=== PATIENT | male | born 1945 | race Asian ===

== ENCOUNTER → 2024-03-12 16:12 | Outpatient (REF) | payer MEDICARE, OTHER, SELFPAY | LOC: RAD 16:12 | PROVIDERS: ATTENDING PHYSICIAN Family Medicine | DX: R74.8 Abnormal levels of other serum enzymes (principal) | CPT/HCPCS: 76700 ==

== ENCOUNTER → 2024-06-08 16:31 | Outpatient (REF) | payer MEDICARE, OTHER, SELFPAY | LOC: RAD 16:31 | PROVIDERS: ATTENDING PHYSICIAN Family Medicine | DX: R26.89 Other abnormalities of gait and mobility (principal) | CPT/HCPCS: 70450 ==

== ENCOUNTER 2024-06-29 14:16 | Emergency (ER) | payer MEDICARE, OTHER, SELFPAY ==
[2024-06-29 14:21] VITALS: BP 113/62
--- NOTE | 2024-06-29 15:05 | ED.GENMED ---
History of Present Illness
General
Chief Complaint: Head Injury
Time Seen by Provider: 06/29/24 15:05
History of Present Illness
History of Present Illness:
HPI: Patient had a fall this morning. He states that he lost his balance. He has fallen in the past related to losing his balance. He struck his head on the right side and has a headache. He also has some posterior neck discomfort. He has
chronic back pain but not necessarily worse today. There is no report of loss of consciousness however the patient is on DAPT.
EXAM:
GENERAL: Well appearing in no distress
CERVICAL SPINE: Mild midline c-spine tenderness
HEAD: No evidence of craniofacial trauma
CHEST: No chest wall tenderness, normal heart sounds
LUNGS: Equal lung sounds, no respiratory distress
ABDOMEN: No abdominal tenderness, no peritoneal signs
EXTREMITIES: Normal active range of motion, no tenderness, minimal discomfort to the medial aspect of the left thigh with active range of motion but no significant hip or knee discomfort
NEURO: Excellent strength all extremities, appropriate mental status, normal speech/language
TIME OF INITIAL ENCOUNTER: 3:15 PM
NUMBER AND COMPLEXITY OF PROBLEMS ADDRESSED AT THE ENCOUNTER
� Chronic conditions affecting care: CHF, high blood pressure, hyperlipidemia, CAD, pacemaker, CKD, diabetes, iron deficiency anemia
� Acute Exacerbation and/or Progression of Chronic Illness: This is an acute problem
� Differential Diagnosis includes: Minor head injury, concussion, intracranial hemorrhage
AMOUNT AND/OR COMPLEXITY OF DATA TO BE REVIEWED AND ANALYZED
� I performed an independent evaluation of and my interpretation is:
EKG:
CT: CT imaging personally reviewed and agree with radiologist interpretation that there is no acute abnormality
X-rays:
Laboratory Studies:
Other:
� Review of other/old records: I reviewed records, the patient has been rehab related to heart failure as of last year
� Clinical information was obtained by an independent historian: Spoke to son at bedside who also assisted with translation without difficulty
� Prescriptions/Medications Considered but not given:
� Further testing considered but not performed:
RISK OF COMPLICATIONS AND/OR MORBIDITY OR MORTALITY OF PATIENT MANAGEMENT
� Social determinants of health affecting care: Lives at home
� Discussion with other providers:
� Escalation of care including admission/observation vs risk of discharge considered: Given patient's age on DAPT with headache after fall, CT head obtained. Vital signs unremarkable. CT imaging unremarkable. No change on
reassessment prior to discharge.
Past History
Past History
ED Past Medical History: CAD, HTN, Hypercholesterolemia and NIDDM
ED Past Surgical History: Cardiac (CABG)
Social History
Tobacco: Former smoker
Personal:
Family History
Family History: CAD
Phy Exam
Physical Exam
Physical Exam:
See HPI
Course
Orders/Labs/Results
Orders:
Orders
06/29/24 14:31
CT Head W/o Iv Contrast Urgent
Comment:
Reason For Exam: head injury, on Plavix
06/29/24 15:18
CT Cervical Spine W/o Iv Contr Urgent
Comment:
Reason For Exam: trauma midline tender
Vital Signs
Initial and Last Documented VS:
Initial Vital Signs
Temp Pulse Resp BP Pulse Ox
98.0 F 86 18 113/62 100
06/29/24 14:21 06/29/24 14:21 06/29/24 14:21 06/29/24 14:21 06/29/24 14:21
Last Documented Vital Signs
Temp Pulse Resp BP Pulse Ox
98.0 F 86 18 113/62 100
06/29/24 14:21 06/29/24 14:21 06/29/24 14:21 06/29/24 14:21 06/29/24 14:21
*Critical Care Note
Total Time (30-74mins, 75-104mins- exclusive of procedures): Not Applicable
ED Attending Note
-
Portions of this chart may have been created with voice recognition software.� Occasional wrong word or��sound alike� substitutions may have occurred due to the inherent limitations of voice recognition software.
Discharge Plan
Departure
Prescriptions:
No Action
rosuvastatin 20 MG tablet
40 mg PO 2100
aspirin 325 MG tablet
325 mg PO 1600 Qty: 0 0RF
ferrous sulfate [FeroSul] 325 MG tablet
325 mg PO BID@1200,2100 Qty: 0 0RF
folic acid 1 MG tablet
1 mg PO DAILY Qty: 0 0RF
ranolazine 500 MG tablet extended release 12 hr
1,000 mg PO BID Qty: 0 0RF
fenofibrate nanocrystallized 145 MG tablet
145 mg PO DAILY Qty: 0 0RF
nitroglycerin [Minitran] 1 EACH patch 24 hour
0.4 mg topical DAILY
Patient Comments:
take off at night
glipizide 10 MG tablet
10 mg PO BID
esomeprazole magnesium [Nexium] 40 MG capsule,delayed release(DR/EC)
40 mg PO 0800,1600
oxybutynin chloride 5 MG tablet
5 mg PO BID
eymkzzhj-kqq-WK-lycopen-lutein [Centrum Silver] 1 EACH tablet
1 ea PO 1600
canagliflozin [Invokana] 100 MG tablet
100 mg PO DAILY
cholecalciferol (vitamin D3) 5,000 UNIT tablet,disintegrating
5,000 unit PO DAILY
carvedilol 6.25 MG tablet
18.75 mg PO BID
valsartan 80 MG tablet
80 mg PO DAILY
clopidogrel 75 MG tablet
75 mg PO NOON
famotidine 20 MG tablet
20 mg PO BID
furosemide 20 MG tablet
20 mg PO DAILYPRN PRN (Reason: as needed)
Referrals:
Elizabeth Torres DO [Family Provider] -
Interventions
Interventions:
*General Assessment Last Done: 06/29/24 14:28
ED- Fall Risk Assessment Last Done: 06/29/24 14:50
*ED COVID-19 Vaccine History Last Done: 06/29/24 14:28
ED- Neurological Assessment Last Done: 06/29/24 15:19
Discharge Date and Time
Print Language: ARABIC
[2024-06-29 17:35] VITALS: BP 106/63
== END 2024-06-29 17:36 | disposition home or self-care (01) ==
LOC: EMR 14:16
PROVIDERS: EMERGENCY PHYSICIAN Emergency Medicine; FAMILY PHYSICIAN Family Medicine
DX: S09.90XA Unspecified injury of head, initial encounter (principal); W19.XXXA Unspecified fall, initial encounter; I13.0 Hypertensive heart and chronic kidney disease with heart failure and stage 1 through stage 4 chronic kidney disease, or unspecified chronic kidney disease; N18.9 Chronic kidney disease, unspecified; E78.00 Pure hypercholesterolemia, unspecified; I25.10 Atherosclerotic heart disease of native coronary artery without angina pectoris; Z87.891 Personal history of nicotine dependence; Z95.0 Presence of cardiac pacemaker
CPT/HCPCS: 99284; 70450; 72125

== ENCOUNTER 2024-11-05 15:21 | Emergency (ER) | payer MEDICARE, OTHER, SELFPAY ==
[2024-11-05 15:35] VITALS: BP 113/50
[2024-11-05 16:12] LABS: Hematocrit 32.7 % (39.0-52.0); Hemoglobin 10.4 g/dL (13.0-18.0); Mean Corp Hgb Conc. 31.8 g/dL (33.0-37.0); Mean Corpuscular Hgb 27.1 pg (27.0-31.0); Mean Corpuscular Volume 85.2 fL (80.0-94.0); Platelet Count 91 10^3/uL (130-400); Red Blood Cell Count 3.84 10^6/uL (4.70-6.10); Red Cell Dist. Width 16.1 % (11.5-14.5); White Blood Cell Count 11.2 10^3/uL (4.8-10.8)
[2024-11-05 16:14] LABS: ALT (SGPT) 73 U/L (0-50); AST (SGOT) 86 U/L (17-59); Albumin 4.6 g/dl (3.5-5.0); Alkaline Phosphatase 81 U/L (38-126); Blood Urea Nitrogen 32 mg/dl (9-20); Calcium 8.9 mg/dl (8.4-10.2); Carbon Dioxide 28 mmol/L (22-30); Chloride 94 mmol/L (98-107); Glucose 308 mg/dl (70-99); Potassium 4.9 mmol/L (3.5-5.1); Sodium 134 mmol/L (135-145); Total Bilirubin 1.5 mg/dl (0.2-1.3)
[2024-11-05 16:21] LABS: NT-proBNP 3010 pg/ml; Troponin I 0.017 ng/ml
[2024-11-05 16:23] LABS: Total Protein 6.5 g/dl (6.3-8.2)
[2024-11-05 16:38] LABS: % Basophils 0.2 % (0-2); % Eosinophils 0.1 % (0-6); % Immature Granulocytes 0.9 % (0-0.5); % Monocytes 10.1 % (1.7-9.3); % Neutrophils 81.7 % (42.2-75.2); Absolute Immature Granulocytes 0.1 10^3/uL (0-0.05); Absolute Lymphocytes 0.8 10^3/uL (1.2-3.4); Absolute Monocytes 1.1 10^3/uL (0.1-0.6); Absolute Neutrophils 9.2 10^3/uL (1.4-6.5); Nucleated Red Blood Cells % 0 % (-)
[2024-11-05 20:40] VITALS: BMI 30.3
[2024-11-05 20:42] VITALS: BP 109/70
--- NOTE | 2024-11-05 21:04 | ED.GENMED ---
History of Present Illness
General
Chief Complaint: Breathing Problem
Source: patient and family
Exam Limitations: none
Time Seen by Provider: 11/05/24 20:55
History of Present Illness
History of Present Illness:
See MDM
Past History
Past History
ED Past Medical History: CAD, HTN, Hypercholesterolemia and NIDDM
ED Past Surgical History: Cardiac (CABG)
Social History
Tobacco: Former smoker
Personal:
Family History
Family History: CAD
Phy Exam
Physical Exam
Physical Exam:
See MDM
Scores
Heart Failure Risk
Heart Failure Risk Score: Yes
History of Stroke or TIA: No
History of intubation for respiratory distress: No
Heart rate on ED arrival >/= 110: No
SaO2 <90% on arrival on room air: No
HR >/=110 during 3min walk test (or too ill to perform test): No
ECG has acute ischemic changes: No
Urea >/=12mmol/L (BUN 33.6mg/dL): No
Serum CO2>/=35mmol/L: No
Troponin I or T elevated to CT Level (0.4mg/dL): No
NT-proBNP >/=5,000ng/L (5,000pg/ml): No
HF Risk Score: 0
Admission Status: LOW RISK 2.8% Consider discharge to home with f/u visit to PCP/Creative Engagement Director
Course
Orders/Labs/Results
Orders:
Orders
11/05/24 15:22
Electrocardiogram (*1) Urgent
Reason for Study: Shortness of Breath
EKG- Treatment ONCE
11/05/24 15:50
Complete Blood Count/With Diff Urgent
Comprehensive Metabolic Panel Urgent
NT-proBNP Urgent
Troponin I Urgent
11/05/24 21:03
CR Chest - 2 Views Urgent
Comment:
Reason For Exam: SOB, cough
11/05/24 21:24
COVID-19 Antigen Urgent
Source: Nasal Swab
Influenza A+B Rapid Molecular Urgent
FEMI Source: Nasal Swab
Specimen Description:
11/05/24 22:03
Guaifenesin/Codeine Solution [Robitussin AC] 10 ml PO NOW STA
Oseltamivir Phosphate [Tamiflu] 75 mg PO NOW STA
Abnormal Lab Results
11/05/24
15:50
WBC 11.2 H 10^3/uL
(4.8-10.8)
RBC 3.84 L 10^6/uL
(4.70-6.10)
Hgb 10.4 L g/dL
(13.0-18.0)
Hct 32.7 L %
(39.0-52.0)
MCHC 31.8 L g/dL
(33.0-37.0)
RDW 16.1 H %
(11.5-14.5)
Plt Count 91 L 10^3/uL
(130-400)
MPV 12.0 H fL
(7.4-10.4)
Abs Immat Gran (auto) 0.1 H 10^3/uL
(0-0.05)
Absolute Neuts (auto) 9.2 H 10^3/uL
(1.4-6.5)
Absolute Lymphs (auto) 0.8 L 10^3/uL
(1.2-3.4)
Absolute Monos (auto) 1.1 H 10^3/uL
(0.1-0.6)
Immature Gran % 0.9 H %
(0-0.5)
Neutrophils % 81.7 H %
(42.2-75.2)
Lymphocytes % 7.0 L %
(20.5-51.1)
Monocytes % 10.1 H %
(1.7-9.3)
Sodium 134 L mmol/L
(135-145)
Chloride 94 L mmol/L
(98-107)
BUN 32 H mg/dl
(9-20)
Creatinine 1.6 H mg/dL
(0.7-1.3)
Glucose 308 H mg/dl
(70-99)
Total Bilirubin 1.5 H mg/dl
(0.2-1.3)
AST 86 H U/L
(17-59)
ALT 73 H U/L
(0-50)
11/05/24 15:50
11/05/24 15:50
Vital Signs
Initial and Last Documented VS:
Initial Vital Signs
Temp Pulse Resp BP Pulse Ox
98.3 F 77 20 113/50 99
11/05/24 15:35 11/05/24 15:35 11/05/24 15:35 11/05/24 15:35 11/05/24 15:35
Last Documented Vital Signs
Temp Pulse Resp BP Pulse Ox
98.3 F 73 25 109/70 99
11/05/24 15:35 11/05/24 21:45 11/05/24 21:45 11/05/24 20:42 11/05/24 21:15
MDM/Problems Addressed
Differential Diagnosis Includes:
HPI and MDM Narrative:
79-year-old male presenting with for persistent cough over the past several weeks. Over the past 24 hours, it is now associated with shortness of breath. Patient does have a history of congestive heart failure and symptoms are worse when he lays
flat. As he has done in the past, he took an extra dose of Lasix. His current regimen is 40 mg a.m. and 20 mg p.m. Last night, took an extra 20 mg at night. He took his normal 40 mg this morning.
Blood work was done prior to my evaluation. Troponin within normal limits but BNP is elevated. Patient was complaining of worsening shortness of breath in the bed so he brought himself to the chair. This has helped. Patient does have shallow
breath sounds.
Patient has chronic lab abnormalities which include CKD, anemia and hyperglycemia all of which are not too far from baseline.
Will obtain chest x-ray
Physical exam
General: Sitting in bed with intermittent dry cough
HEENT: protecting airway
Neck: appears supple
CV: No evidence of cyanosis. Regular rate and rhythm
Resp: No accessory muscle use. Shallow breath sounds
Abd: Non-distended
Extremities: No deformities. No leg edema
Neuro: alert
Psych: Normal affect
Skin: Intact
Problems Addressed including Acute and Chronic Conditions affecting care:
1. Shortness of breath and cough
Acuity: acute
Prognosis: stable
Details: Given his history, will obtain chest x-ray to look for any evidence of pulmonary edema
Updates
Chest x-ray shows mild increase in cephalization. There is no pleural effusions. Given the elevated BNP, I discussed with patient and family that this could potentially mean mild CHF. Patient also found to have influenza. He did not get his flu
shot this year. Will start Tamiflu at 30 mg twice a day based on renal function. I did offer admission but patient and son feel comfortable going home
Son is requesting paper prescription even after I told him that narcotics usually require electronic transmission
Differential Diagnosis (but not limited to): Pulmonary edema, pneumonia, viral syndrome
Testing considered: D-dimer but he is neither tachycardic nor hypoxic
Drug therapy (if applicable): OTC meds, please see d/c instruction regarding Rx drugs
Amount and/or Complexity of Data Reviewed
Clinical info obtained from: Patient and son
External data reviewed: N/A
Labs I independently reviewed (but not limited to): CKD, anemia, hyperglycemia
Radiology: N/A
Pulse Ox: not hypoxic
EKG independently reviewed: Paced rhythm, left axis, no STEMI
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
Critical Care: N/A
Risk of Complication:
Social Determinants of health: Good social support
Discussed with other providers: N/A
Escalation of Care includes Admit/Obs: After being observed in the Emergency Department, pt stable for discharge.
Occasional wrong word or 'sound a like' substitutions may have occurred due to the inherent limitations of voice recognition software. Read the chart carefully and recognize, using context, where substitutions have occurred.
*Critical Care Note
Total Time (30-74mins, 75-104mins- exclusive of procedures): Not Applicable
ED Attending Note
-
Portions of this chart may have been created with voice recognition software.� Occasional wrong word or��sound alike� substitutions may have occurred due to the inherent limitations of voice recognition software.
Discharge Plan
Departure
Patient Disposition: Home (Routine Discharge)
Date of Disposition: 11/05/24
Time of Disposition: 22:09
Patient with high blood pressure during this ER visit?: No
Discharge Problem:
Influenza A, CHF exacerbation
Instructions: Flu
Prescriptions:
New
codeine-guaifenesin 10-100 mg/5 mL liquid
5 ml PO Q6H PRN (Reason: Cough) Qty: 120 0RF
oseltamivir [Tamiflu] 30 mg capsule
30 mg PO BID 5 Days Qty: 10 0RF
No Action
rosuvastatin 20 MG tablet
40 mg PO 2100
aspirin 325 MG tablet
325 mg PO 1600 Qty: 0 0RF
ferrous sulfate [FeroSul] 325 MG tablet
325 mg PO BID@1200,2100 Qty: 0 0RF
folic acid 1 MG tablet
1 mg PO DAILY Qty: 0 0RF
ranolazine 500 MG tablet extended release 12 hr
1,000 mg PO BID Qty: 0 0RF
fenofibrate nanocrystallized 145 MG tablet
145 mg PO DAILY Qty: 0 0RF
nitroglycerin [Minitran] 1 EACH patch 24 hour
0.4 mg topical DAILY
Patient Comments:
take off at night
glipizide 10 MG tablet
10 mg PO BID
esomeprazole magnesium [Nexium] 40 MG capsule,delayed release(DR/EC)
40 mg PO 0800,1600
oxybutynin chloride 5 MG tablet
5 mg PO BID
ggvwmwmo-vft-OR-lycopen-lutein [Centrum Silver] 1 EACH tablet
1 ea PO 1600
canagliflozin [Invokana] 100 MG tablet
100 mg PO DAILY
cholecalciferol (vitamin D3) 5,000 UNIT tablet,disintegrating
5,000 unit PO DAILY
carvedilol 6.25 MG tablet
18.75 mg PO BID
valsartan 80 MG tablet
80 mg PO DAILY
clopidogrel 75 MG tablet
75 mg PO NOON
famotidine 20 MG tablet
20 mg PO BID
furosemide 20 MG tablet
20 mg PO DAILYPRN PRN (Reason: as needed)
Referrals:
UNKNOWN - PT DOES,NOT KNOW [Family Provider] -
Activity Restrictions/Additional Instructions:
Please return for any worsening symptoms.
You may return at any time if you have further concerns.
Please follow up with your doctor at the first available appointment, preferably this week.
Please take the Tamiflu for the influenza. The chest x-ray was concerning for very mild CHF exacerbation. Continue 40 mg of Lasix twice a day for the next 3 days.
Thank you for choosing [facility].
Interventions
Interventions:
*Risk Screen - Suicide Last Done: 11/05/24 15:35
*General Assessment Last Done: 11/05/24 15:35
*Neglect/Abuse Screening Last Done: 11/05/24 15:35
ED- Fall Risk Assessment Last Done: 11/05/24 20:50
*ED COVID-19 Vaccine History Last Done: 11/05/24 20:47
ED- Cardiac Assessment Last Done: 11/05/24 20:49
ED- Pulmonary Assessment Last Done: 11/05/24 20:49
Discharge Date and Time
Print Language: CROATIAN
[2024-11-05 21:47] LABS: COVID-19 Antigen Negative (Negative)
[2024-11-05] MEDS: TAMIFLU 30 MG PO (22:20)
[2024-11-05] MEDS: ROBITUSSIN AC 10 ML PO (22:20)
== END 2024-11-05 22:29 | disposition home or self-care (01) ==
LOC: EMR 15:21
PROVIDERS: Emergency Medicine; EMERGENCY PHYSICIAN Student in an Organized Health Care Education/Training Program
DX: J10.1 Influenza due to other identified influenza virus with other respiratory manifestations (principal); Z87.891 Personal history of nicotine dependence; Z11.52 Encounter for screening for COVID-19
CPT/HCPCS: 99285; 71046; 80053; 83880; 84484; 85025; 87502; 87811; 93005

== ENCOUNTER 2024-11-07 08:12 | Inpatient (IN) | payer MEDICARE, OTHER, SELFPAY ==
[2024-11-07] VITALS (93 sets, daily range): BP systolic 70–162; BP diastolic 26–89
[2024-11-07 05:49] LABS: Glucose - Point of Care 337 mg/dl (70-99)
[2024-11-07 05:55] LABS: Hematocrit 32.2 % (39.0-52.0); Hemoglobin 10.1 g/dL (13.0-18.0); Mean Corp Hgb Conc. 31.4 g/dL (33.0-37.0); Mean Corpuscular Hgb 27.4 pg (27.0-31.0); Mean Corpuscular Volume 87.5 fL (80.0-94.0); Mean Platelet Volume 13.6 fL (7.4-10.4); Platelet Count 82 10^3/uL (130-400); Red Blood Cell Count 3.68 10^6/uL (4.70-6.10); White Blood Cell Count 12.1 10^3/uL (4.8-10.8)
[2024-11-07 06:17] LABS: B.E. -16.3 mmol/L; PCO2 63 mmHg (35-48)
[2024-11-07 06:19] LABS: ALT (SGPT) 48 U/L (0-50); AST (SGOT) 62 U/L (17-59); Albumin 3.5 g/dl (3.5-5.0); Alkaline Phosphatase 64 U/L (38-126); Blood Urea Nitrogen 46 mg/dl (9-20); Calcium 7.5 mg/dl (8.4-10.2); Carbon Dioxide 17 mmol/L (22-30); Chloride 96 mmol/L (98-107); Glucose 372 mg/dl (70-99); Potassium 4.7 mmol/L (3.5-5.1); Sodium 132 mmol/L (135-145); Total Bilirubin 0.9 mg/dl (0.2-1.3); Total Protein 5.6 g/dl (6.3-8.2); eGFR 41.01
[2024-11-07 06:20] LABS: Troponin I 0.051 ng/ml
[2024-11-07 06:21] LABS: O2 Therapy 100%; pH 6.97 (7.35-7.45)
[2024-11-07 06:22] LABS: HCO3 14.5 mmol/L (21-28); PO2 32 mmHg (83-108)
--- NOTE | 2024-11-07 06:32 | PTCARENOTE ---
pt arrived via EMS after SOB, dx with flu on friday and seen in ED a few days ago. upon EMS arrival, pt was conversant and responsive. EMS administered duoneb- satting 90%. pt had no c/o CP. during transport pt became unresponsive- PEA and CPR
initiated. 1 round of vfib and 4 epi given prior to arrival. pt given 1 mL of epi at 0536, BS 337, got pulse back at 0538. pt intubated at 0546, levophed gtt started at 4mcg at 0552. 0.5 mL of epi given at 0554 and levo increased to 8mcg at 0554. pt
then increased to 12 mcg of levo at 0609 then 16 mcg at 0611 and 20 mcg at 0615. another 0.5 mL of epi given 0618. epi gtt initiated at 1mcg/min at 0619. pts son at bedside.
--- NOTE | 2024-11-07 06:59 | ED.GENMED ---
History of Present Illness
General
Chief Complaint: CODE
Source: family (Son at bedside), ambulance crew and previous hospital records (ED visit November 05.)
Exam Limitations: clinical condition
Time Seen by Provider: 11/07/24 05:33
Nursing documentation reviewed up to this point in time: agreed with
History of Present Illness
History of Present Illness:
This is a 79-year-old gentleman who resides at home with his son. He has history of CAD, cardiomyopathy. Prior history of 3 previous CABG procedures most recently 2019, multiple cardiac catheterizations with stent procedures, most recently
years ago. History of cardiomyopathy with EF of 30 to 35% as per most recent echocardiogram 1 week ago. He has history of chronic kidney disease stage III. History of oei-ckswdcs-rqiohmryu diabetes.
History of atrial fibrillation chronically maintained on Plavix and aspirin.
He presented to this ED November 05 with complaints of several week history of cough, progressive shortness of breath.
He was found to be positive for influenza A. Chest x-ray showed mild CHF. He was started on Tamiflu/renal dose. Was offered admission but both he and his son felt comfortable to go home.
Over the past 2 days however he has continued to have a cough and progressive shortness of breath, severe tonight prompting call to 911.
Upon EMS arrival patient in severe respiratory distress, severe air hunger, nebulizer treatment initiated and patient was packaged and placed in the ambulance. Initial pulse ox during nebulizer treatment was 92%.
En route to the hospital he suffered cardiac arrest with initial rhythm of asystole. CPR initiated promptly and continued during EMS transport. Advanced airway/Latrell Combitube inserted prehospital. Left tibial IO inserted prehospital and he
received several rounds of IV epinephrine without return of spontaneous circulation. Child Care Cook notes rhythm changed to ventricular fibrillation upon arrival to the ED.
Patient arrives to the ED in cardiac arrest. CPR continued. Bag valve to Combitube with 100% oxygen.
Past History
Past History
ED Past Medical History: CAD, HTN, Hypercholesterolemia and NIDDM
ED Past Surgical History: Cardiac (CABG)
Social History
Tobacco: Former smoker
Personal:
Family History
Family History: CAD
Phy Exam
Physical Exam
Physical Exam:
CODE EXAM:
VITAL SIGNS: No palpable blood pressure, no pulses, no respiration.
GENERAL EXAM: Elderly obese gentleman, unresponsive. CPR in progress. No evidence of trauma.
EYES: Pupils fixed
ENT: Oral Combitube, bagged respirations.
NECK: No venous distention
RESPIRATORY: Equal breath sounds with fine rhonchi bilaterally.
CARDIAC: Absent heart sounds
VASCULAR: Femoral pulses palpable with CPR. Absent during brief pulse check.
ABDOMEN: Rotund, soft, no palpable masses.
GUAIAC: Not done
MUSCULOSKELETAL: Unable to evaluate strength
EXTREMITIES: No edema or contractures. Hands and feet are cool, central extremities are warm.
SKIN: No rash
PSYCH: Mood, affect unable to evaluate
Course
Orders/Labs/Results
Orders:
Orders
11/07/24 05:39
EKG [Electrocardiogram (*1)] Urgent
Reason for Study: Other
Other Reason for Exam: code
EPINEPHrine 4 mg/250 mL NSS [Adrenalin] 4 mg in 250 ml .ROUTE .STK-MED
11/07/24 05:40
EKG- Treatment ONCE
11/07/24 05:45
Complete Blood Count/With Diff Urgent
Comprehensive Metabolic Panel Urgent
Manual Differential Urgent
Troponin I Urgent
11/07/24 05:48
Lactic Acid Urgent
CXR Port [CR Chest Portable - 1 View] Urgent
Comment:
Reason For Exam: code- intubated
Reason Study Needs to be Portable: Patient Unstable
11/07/24 05:50
NORepinephrine 4 MG/250 ML [Levophed] 4 mg in 250 ml .ROUTE .STK-MED
11/07/24 05:56
EKG [Electrocardiogram (*1)] Urgent
Reason for Study: Other
Other Reason for Exam: code
EKG- Treatment ONCE
11/07/24 06:08
Blood Culture Urgent
FEMI Source: Blood/Venous
Specimen Description:
11/07/24 06:09
ABG [Arterial Blood Gas] Urgent
%Oxygen/Room Air: 100
11/07/24 06:11
Blood Culture Urgent
FEMI Source: Blood/Venous
Specimen Description:
11/07/24 07:05
CXR Port [CR Chest Portable - 1 View] Stat
Comment:
Reason For Exam: ET tube adjustment
Reason Study Needs to be Portable: Unable to Transport
11/07/24 07:19
CT Head W/o Iv Contrast Stat
Comment:
Reason For Exam: s/p cardiac arrest, unresponsive, eval cerebredema
11/07/24 07:23
Admit/Transfer Patient As Directed
Co-Sign Provider:
Level of Care: Inpatient admission
Assign to:: ICU
Physician / Group: hospitalist
Diagnosis: cardiac arrest
Reason for Hospitalization: cardiac arrest
Expected length of stay greater than two midnights?: Yes
ELOS- Estimated Length of Stay in days: 2
I certify the patient meets the requirements for IP care: Yes
PRN Pain Medication Management As Directed
May give lesser potent ordered pain med per pt: Yes
preference::
Protocol:: Medication orders for pain may be administered in a
manner that supports deferring to patient preference
when the pt is:
- Requesting an ordered lesser potent pain medication.
Least to most potent pain medications are defined
as: acetaminophen < NSAID < tramadol < opioids
(morphine, oxycodone, hydromorphone).
- Requesting a lesser dose of the same medication IF
ORDERED.
- Requesting a less intrusive route of administration
if both routes are prescribed by the provider (PO <
IV).
11/07/24 07:45
Venous Blood Gas Stat
%Oxygen/Room Air: 100
11/07/24 07:56
Code Status As Directed
Resuscitation Status: Full Code
Abnormal Lab Results
11/07/24 11/07/24 11/07/24
05:38 05:45 05:48
WBC 12.1 H 10^3/uL
(4.8-10.8)
RBC 3.68 L 10^6/uL
(4.70-6.10)
Hgb 10.1 L g/dL
(13.0-18.0)
Hct 32.2 L %
(39.0-52.0)
MCHC 31.4 L g/dL
(33.0-37.0)
RDW 16.0 H %
(11.5-14.5)
Plt Count 82 L 10^3/uL
(130-400)
MPV 13.6 H fL
(7.4-10.4)
pH
pCO2
pO2
HCO3
ABG O2 Sat (Measured)
Sodium 132 L mmol/L
(135-145)
Chloride 96 L mmol/L
(98-107)
Carbon Dioxide 17 L mmol/L
(22-30)
BUN 46 H mg/dl
(9-20)
Creatinine 1.7 H mg/dL
(0.7-1.3)
Glucose 372 H mg/dl
(70-99)
Lactic Acid 7.0 H* mmol/L
(0.7-2.0)
Calcium 7.5 L mg/dl
(8.4-10.2)
AST 62 H U/L
(17-59)
Troponin I 0.051 H* ng/ml
Total Protein 5.6 L g/dl
(6.3-8.2)
POC Glucose 337 H mg/dl
(70-99)
11/07/24
06:09
WBC
RBC
Hgb
Hct
MCHC
RDW
Plt Count
MPV
pH 6.97 L*
(7.35-7.45)
pCO2 63 H mmHg
(35-48)
pO2 32 L* mmHg
(83-108)
HCO3 14.5 L* mmol/L
(21-28)
ABG O2 Sat (Measured) 40.0 L %
(94-98)
Sodium
Chloride
Carbon Dioxide
BUN
Creatinine
Glucose
Lactic Acid
Calcium
AST
Troponin I
Total Protein
POC Glucose
11/07/24 05:45
11/07/24 05:45
Vital Signs
Initial and Last Documented VS:
Initial Vital Signs
Pulse Resp BP
71 20 102/61
11/07/24 06:04 11/07/24 06:04 11/07/24 06:04
Last Documented Vital Signs
Pulse Resp BP Pulse Ox
89 18 120/49 98
11/07/24 07:02 11/07/24 07:02 11/07/24 07:02 11/07/24 07:00
MDM/Problems Addressed
Differential Diagnosis Includes:
Concern for acute hypoxic respiratory failure, progressive to cardiopulmonary arrest.
Patient has known influenza, concern for fulminant viral pneumonia versus bacterial pneumonia, concern for pulmonary edema, concern for coronary ischemia related to hypoxia.
Concern for overwhelming sepsis, acute on chronic kidney disease.
Concern for anoxic encephalopathy.
Chronic conditions affecting care: DM, HTN, CAD, Cardiomyopathy, Arrhythmia and Kidney disease
*Radiology
Radiology exam reviewed: preliminary read by ED provider
*Pulse Oximetry
Patient hypoxic: yes
*EKG
Interpreted by ED Provider?: Yes
Comparison EKG: no changes
Rhythm: av sequential
*Bottle Gauger Interpretation
Rate: normal
Rhythm: av sequential
*Critical Care Note
Total Time (30-74mins, 75-104mins- exclusive of procedures): 90
comment:
Critical care statement: A total of 90 minutes of critical care time was provided for this patient. This includes management of unstable vital signs, evaluation of the patient at bedside, reviewing the patient's pertinent medical records, discussion
with consultants, review of old EKGs and review of pertinent medical records. This time with separate from time utilized to perform the aforementioned documented procedures
Update Note
Update Note:
With continuation of CPR, airway management and an additional 1 mg of epinephrine promptly after arrival to the ED ROSC established.
Bounding carotid as well as femoral pulses.
EKG shows AV sequential pacing, overall similar to previous EKG. no evidence of STEMI.
Blood pressure has remained tenuous requiring initiation of IV Levophed as well as addition of IV epinephrine drip. He has also required occasional Push dose epinephrine which patient has responded quite well to.
Combitube removed by myself and replaced with 7.5 ET tube. Equal breath sounds bilaterally. End-tidal CO2 of 40. Placed on ventilator.
Initial ABG/blood draw appears to be venous draw. Significant acidosis which appears metabolic as well as respiratory.
Chest x-ray shows CHF and right lower lobe pneumonia. ET tube into the right mainstem bronchus. ET tube has since been withdrawn 2 cm and resecured.
IV Zosyn has been started for potential bacterial pneumonia.
Despite return of spontaneous respirations, adequate blood pressure patient remains unresponsive.
Son is now at bedside. Pt's condition discussed.
Full code
Case discussed with hospitalist.
As patient appears to have primary respiratory issue as cause for cardiac arrest, concern for sepsis, at this point does not appear to be criti-cool candidate.
Similarly, no evidence of STEMI on EKG and cardiac arrest appeared to be hypoxia in nature. At this point no indication for urgent cardiac catheterization.
Will consider CT head, assess for potential early signs of anoxic encephalopathy
He remains in critical condition
Prognosis is guarded
ED Attending Note
-
Portions of this chart may have been created with voice recognition software.� Occasional wrong word or��sound alike� substitutions may have occurred due to the inherent limitations of voice recognition software.
Discharge Plan
Departure
Patient Disposition: Admit
Date of Disposition: 11/07/24
Time of Disposition: 06:16
Admit to: ICU
Admit to doctor: KANDACE
Presentation/result/management discussed w/ accepting MD/DO: Hospitalist
Condition: Critical
Discharge Problem:
CARDIOPULMONARY ARREST WITH ROSC, Influenza A, Pneumonia and influenza, Pulmonary edema
Prescriptions:
No Action
rosuvastatin 20 MG tablet
40 mg PO 2100
aspirin 325 MG tablet
325 mg PO 1600 Qty: 0 0RF
ferrous sulfate [FeroSul] 325 MG tablet
325 mg PO BID@1200,2100 Qty: 0 0RF
folic acid 1 MG tablet
1 mg PO DAILY Qty: 0 0RF
ranolazine 500 MG tablet extended release 12 hr
1,000 mg PO BID Qty: 0 0RF
fenofibrate nanocrystallized 145 MG tablet
145 mg PO DAILY Qty: 0 0RF
nitroglycerin [Minitran] 1 EACH patch 24 hour
0.4 mg topical DAILY
Patient Comments:
take off at night
glipizide 10 MG tablet
10 mg PO BID
esomeprazole magnesium [Nexium] 40 MG capsule,delayed release(DR/EC)
40 mg PO 0800,1600
oxybutynin chloride 5 MG tablet
5 mg PO BID
npbcuzau-ppt-HQ-lycopen-lutein [Centrum Silver] 1 EACH tablet
1 ea PO 1600
canagliflozin [Invokana] 100 MG tablet
100 mg PO DAILY
cholecalciferol (vitamin D3) 5,000 UNIT tablet,disintegrating
5,000 unit PO DAILY
carvedilol 6.25 MG tablet
18.75 mg PO BID
valsartan 80 MG tablet
80 mg PO DAILY
clopidogrel 75 MG tablet
75 mg PO NOON
famotidine 20 MG tablet
20 mg PO BID
furosemide 20 MG tablet
20 mg PO DAILYPRN PRN (Reason: as needed)
codeine-guaifenesin 10-100 mg/5 mL liquid
5 ml PO Q6H PRN (Reason: Cough) Qty: 120 0RF
oseltamivir [Tamiflu] 30 mg capsule
30 mg PO BID 5 Days Qty: 10 0RF
Referrals:
UNKNOWN - PT DOES,NOT KNOW [Family Provider] -
Interventions
Interventions:
*Risk Screen - Suicide Last Done: 11/07/24 06:14
*General Assessment Last Done: 11/07/24 06:14
*Neglect/Abuse Screening Last Done: 11/07/24 06:14
ED- Fall Risk Assessment Last Done: 11/07/24 07:17
*ED COVID-19 Vaccine History Last Done: 11/07/24 06:14
ED- Cardiac Assessment Last Done: 11/07/24 06:12
ED- Pulmonary Assessment Last Done: 11/07/24 06:12
Discharge Date and Time
Print Language: ANDORRAN
[2024-11-07 07:33] LABS: Anisocytosis 1+; Normal RBC Morphology No; Toxic Granulation 1+; Vacuolated Segs 1+
[2024-11-07 07:34] LABS: Ovalocytes 1+; Platelets Checked Yes; Polychromasia Occasional
[2024-11-07 07:35] LABS: Target Cells Occasional; Tear Drop Red Blood Cells Occasional
[2024-11-07 07:59] LABS: Venous Blood Gas B.E. -11.7 mmol/L (-4 to +4); Venous Blood Gas O2 Sat % 98.3 %; Venous Blood Gas pCO2 58 mmHg (35-48); Venous Blood Gas pO2 172 mmHg (30-50)
--- NOTE | 2024-11-07 08:09 | HPS.HSE ---
Family Physician
-
Family Physician: NOT KNOW UNKNOWN - PT DOES
Chief Complaint
-
s/p cardiac arrest.
History of Present Illness
Patient unable to provide history. History obtained from family members.
Patient is a 79-year-old male with extensive cardiac history notable for CAD status post CABG twice, status post multiple stents, ischemic cardiomyopathy status post ICD and pacemaker placement, atrial fibrillation status post Watchman procedure,
gaf-ncfxqwv-tcffgstos diabetes, hyperlipidemia, will presents to the emergency department after suffering a cardiac arrest witnessed by EMS.
Patient was seen in the emergency department on Friday (2 days ago) where he had a cough and shortness of breath. By the time he was diagnosed with influenza. X-ray was benign and patient was not requiring oxygen. He was discharged. He continued
to have shortness of breath since then. On family reported that he has had worsening orthopnea and dyspnea on exertion. No eugenie fevers. Patient did not have productive cough. He has been dependent on his CPAP for respiratory distress. Home
patient diuretic was increased from 20 mg every other day to almost 40 mg twice daily. He did take the Tamiflu on Friday.
EMS was called today because patient became extremely orthopneic and in severe respiratory distress. On EMS arrival the patient was found to be hypoxic requiring 6 L and satting at around 90%. Work of breathing was extreme and he was immediately
transferred into the ambulance. Upon arrival in the ambulance the patient went into a PEA arrest. Asystole was noticed. Between transportation and arrival in the emergency department patient received 3-4 rounds of epinephrine. No shocks were
given. He was intubated en route to the emergency department.
He is now intubated on multiple pressors.
When I saw the patient he was intubated and unresponsive but not requiring sedatives. He was maintaining a MAP greater than 65 on Levophed and epinephrine. He was afebrile. He was maintaining oxygen saturation of 98% on 100% FiO2 on the vent.
His chest x-ray shows bilateral pulmonary infiltrates consistent with pulmonary edema. ECG shows a paced rhythm at 71 without any acute changes compared to prior. It was a and V paced. Initial gas was 6.9/63. End-tidal volumes now improved to
mid 30s. CBC with a white count of 12, hemoglobin 10 and platelet of 82. BUN and creatinine close to baseline at 46 and 1.7. Glucose elevated at 372. Lactic acid was 7.
Medical History
Past Medical History
Past Medical History: Reports Arrhythmia (Atrial fibrillation, status post pacemaker, status post Watchman), CAD (CAD status post CABG, status post stents), CHF (Ischemic cardiomyopathy, EF around 30%), HTN, Hypercholesterolemia, NIDDM and Renal
Failure (CKD stage IV)
Past Surgical History: Reports Cardiac (CABG multiple vessels ) and Other
Additional Past Surgical History:
Watchman procedure
Pacemaker AICD
Social History
Tobacco: Non-smoker
Alcohol: None
Drug: None
Personal:
Living: With Family
Employment: Retired
Family History
Family History: Not pertinent
Allergies / Home Medications
Allergies reflects when Allergies were last updated in [facility].
Home Medications with original date entered in [facility]
Allergy/Medication List:
Allergies
Allergy/AdvReac Type Severity Reaction Status Date / Time
No Known Allergies Allergy Verified 11/05/24 15:40
Home Medications
rosuvastatin 20 mg tablet 40 mg PO 2100 09/23/14
aspirin 325 mg tablet 325 mg PO 1600 ##0 05/11/16
fenofibrate nanocrystallized 145 mg tablet 145 mg PO DAILY ##0 05/11/16
ferrous sulfate 325 mg (65 mg iron) tablet (FeroSul) 325 mg PO BID@1200,2100 ##0 05/11/16
folic acid 1 mg tablet 1 mg PO DAILY ##0 05/11/16
ranolazine 500 mg tablet,extended release,12 hr 1,000 mg (2 x 500 mg) PO BID ##0 05/11/16
canagliflozin 100 mg tablet (Invokana) 100 mg PO DAILY 12/07/17
carvedilol 6.25 mg tablet 18.75 mg PO BID 12/07/17
cholecalciferol (vitamin D3) 125 mcg (5,000 unit) disintegrating tablet 5,000 unit PO DAILY 12/07/17
clopidogrel 75 mg tablet 75 mg PO NOON 12/07/17
esomeprazole magnesium 40 mg capsule,delayed release (Nexium) 40 mg PO 0800,1600 12/07/17
famotidine 20 mg tablet 20 mg PO BID 12/07/17
furosemide 20 mg tablet 20 mg PO DAILYPRN PRN as needed 12/07/17
glipizide 10 mg tablet 10 mg PO BID 12/07/17
qujcwiba-ywj-pcioc acid 0.4 mg-lycopene 300 mcg-lutein 250 mcg tablet (Centrum Silver) 1 ea PO 1600 12/07/17
nitroglycerin 0.1 mg/hr transdermal 24 hour patch (Minitran) 0.4 mg topical DAILY 12/07/17
oxybutynin chloride 5 mg tablet 5 mg PO BID 12/07/17
valsartan 80 mg tablet 80 mg PO DAILY 12/07/17
codeine 10 mg-guaifenesin 100 mg/5 mL oral liquid 5 ml PO Q6H PRN Cough #120 mL 11/05/24
oseltamivir 30 mg capsule (Tamiflu) 30 mg PO BID 5 days #10 caps 11/05/24
Review of Systems
-
Unable to obtain full review of systems at this time due to: Patient Intubation
Physical Exam
Vital Signs
Vital Signs
Pulse Resp BP Pulse Ox
96 21 124/50 98
11/07/24 08:01 11/07/24 08:01 11/07/24 08:02 11/07/24 07:00
Physical Exam
General: Intubated
HEENT: NormoCephalic, Anicteric, Moist mucous membranes, Atraumatic, [place] Conjunctivae and Oxygen
Respiratory: Crackles
Cardiac: S1/S2 and Regular Rhythm
GI: Soft, Non Tender, Non Distended and Normal Bowel Sounds
Rectal: Deferred by Provider
Genito-urinary: Deferred by me
Musculoskeletal: No Clubbing, No Cyanosis and No Edema
Skin: Warm
Neuro: Other (unresponsive)
Hematologic/Lymphatic: No Lymphadenopathy
Laboratory Results
-
11/07/24 05:45
11/07/24 05:45
Laboratory Results
pH Cancelled 11/07/24 07:21
pCO2 Cancelled 11/07/24 07:21
pO2 Cancelled 11/07/24 07:21
HCO3 Cancelled 11/07/24 07:21
Lactic Acid 7.0 mmol/L (0.7-2.0) H* 11/07/24 05:48
Total Bilirubin 0.9 mg/dl (0.2-1.3) 11/07/24 05:45
AST 62 U/L (17-59) H 11/07/24 05:45
ALT 48 U/L (0-50) 11/07/24 05:45
Alkaline Phosphatase 64 U/L (38-126) 11/07/24 05:45
Troponin I 0.051 ng/ml H* 11/07/24 05:45
Data Reviewed
-
Diagnostic Radiology: Image Personally Visualized and interpreted and Report Reviewed by me
Medical Tests (Nuc Med, Echo, EKG etc): Image Personally Visualized and interpreted
Lab Data: Labs Reviewed by me
Old Records: Reviewed
Impression/Plan
-
IMPRESSION:
79 y.o with h/o ICM EF 30%, NIDDM, AFIB s/p PPM-AICD, s/p watchman here s/p out of hospital cardiac arrest. Diagnosed with flu 2 days ago. Appears to be in pulmonary edema. Unclear if pulmonary edema is secondary to arrest or primary etiology.
He was in respiratory distress prior to the arrest. Had PEA arrest in front of EMS and CPR began immediately. ROSC after 4 - 5 rounds of EPI in ED. Intubated, on pressors.
PLAN:
1. Cardiac Arrest - PEA, suspect hypoxic mediated which may be due to influenza/pneumonia versus CHF exacerbation. Inital ECG is unchanged from prior and paced. Trop 0.05. No complaints of CP.
- admit to icu
- not a candidate for therapeutic cooling
- CT Head pending
- Keep MAP > 65 for now with pressors
- light sedation to maintain oxygenation
- trend troponins
- echo
- cardiology consulted.
2. Respiratory failure - Patient likely in some CHF exacerbation with pulmonary edema. No significant peripheral edema so likely flashed, vs influenza ards with pneumonia.
- intubated, PEEP currenty at 5 with sat of 100
- repeat blood gas pending, ETCO2 encouraging
- light sedation as above
- no h/o COPD or asthma.
- ARDSNET protocol if needed
- gi ppx
- machine stitcher consulted
3. Influenza - Cannot rule out ARDS entirely
- continue tamiflu
- blood cultures, urine cultures, sputum cultures
- broad spectrum abx Cefepime and Vancomycin for now
4.Heart Failure - Suspect cardiogenic pulmonary edema and possibly cardiogenic shock s/p PEA arrest.
- pressors to maintain map > 65
- attempt to diurese once stabilized more, holding lasix for now
- echo
- continue aspirin/plavix
- holding GDMT including coreg, valsartan,
5. CAD - no STEMI. Mild myocardial injury unlikely obstructive
- continue asa/plavix/statin
- holdin imdur and ranexa for now
6. AFIB
- s/p ppm aicd and watchman. Rate is controlled
- restart coreg as tolerated
7. DM II - initial hyprglycemia
- holding glizide/metformin.
- npo, sliding scale q4 hours
DVT PPX - heparin sq
Code status - full code
Home medications list from family
coreg 15.625mg bid
folic acid 1mg daily
Ranexa 1000mg bid
Vascepa 1gm bid
metformin 500mg bid
amiodarone 200mg daily
aspirin 81mg daily
Myrbetriq 50mg daily
Imdur 60mg daily
plavix 75mg daily
Glipizide 10mg bid
Jardiance 25mg daily
docusate 100mg bid
furosemide 20mg qod
loratidine 10mg daily
Ferrous Sulfate 35mg qod
creston 40mg hs
famotidine 40mg hs
esomeprazole 40mg hs
gabapentin 200mg hs
Restasis 0.05% 1 drop each eye daily
[2024-11-07] MEDS: DIPRIVAN 100 IV (08:15)
[2024-11-07 08:26] LABS: Band Neutrophils 22 % (0-3); Lymphocytes 32 % (20-51); Metamyelocytes 2 % (-); Monocytes 6 % (2-9); Myelocytes 2 % (-); Segmented Neutrophils 36 % (42-75)
[2024-11-07 08:27] LABS: Total Cells Counted 100
[2024-11-07] MEDS: ADRENALIN 250 IV (08:43)
[2024-11-07] MEDS: LEVOPHED 250 IV ×5 (08:44→19:01)
--- NOTE | 2024-11-07 09:36 | CON.INTV ---
Consultation
Consultation Request
Date/Time Consultation Requested: 11/07
Date/Time Consultation Performed: 11/07
Reason for Consultation: Critical care
Medical History
-
History of Present Illness:
History obtained from the chart and outpatient records, additional history from both children (daughter is a physician). Patient currently intubated and sedated. 79-year-old male with history of coronary disease status post CABG x 2, multiple
stents, ischemic cardiomyopathy with ICD/pacemaker, atrial fibrillation status post Watchman procedure, diabetes with recent diagnosis of influenza A 11/05/2024 brought to [facility] because of worsening orthopnea and dyspnea on exertion.
Per ED records, patient has been using CPAP at home. Patient was started on Tamiflu on 11/05. Upon arrival of EMS, patient required 6 L, saturation 90%, extreme work of breathing. Patient went into cardiac arrest in the ambulance, asystole was the
first rhythm. Patient received 4 rounds of epinephrine, no shock, intubated en route. EKG with paced rhythm at 71. Initial ABG pH 6.9. Creatinine 1.7, glucose 372.
Family states patient has been to deteriorating over the last 6 months. Patient has chronic back pain, requiring epidurals. Has not been as active. Also was on Eliquis therapy many years ago, complicated by tongue bleeding, ecchymoses, underwent
Watchman procedure. Patient is currently on amiodarone. All of his care is at [place] [facility]
.
PMH: Coronary disease with bypass x 2 (1989, 1999), multiple stents (2004), ischemic cardiomyopathy EF 30% (on amiodarone), hypertension, hyperlipidemia, diabetes, chronic renal failure CKD stage IV, atrial fibrillation with pacemaker/ICD, status
post Watchman. History of gastric band surgery
Past Medical History
Past Medical History: None (See above)
Past Surgical History: None (See above)
Social History
Tobacco: Non-smoker
Alcohol: None
Drug: None
Living: With Family (Lives with son)
Employment: Not Employed
Family History
Family History: Other (Brother with liver cancer, mother at 90 decade, sister with stroke. 5 children healthy. Family history negative for lung cancer, blood clots)
Allergies / Home Medications
Allergies
Allergy/AdvReac Type Severity Reaction Status Date / Time
No Known Allergies Allergy Verified 11/05/24 15:40
Home Medications
�Medication �Instructions �Recorded �Confirmed �Last Taken �Type
rosuvastatin 20 mg tablet 40 mg PO 2100 09/23/14 12/07/17 05/10/16 19:00 History
aspirin 325 mg tablet 325 mg PO 1600 ##0 05/11/16 12/07/17 Unknown Rx
fenofibrate nanocrystallized 145 145 mg PO DAILY ##0 05/11/16 12/07/17 Unknown Rx
mg tablet
ferrous sulfate 325 mg (65 mg 325 mg PO BID@1200,2100 ##0 05/11/16 12/07/17 Unknown Rx
iron) tablet (FeroSul)
folic acid 1 mg tablet 1 mg PO DAILY ##0 05/11/16 12/07/17 Unknown Rx
ranolazine 500 mg tablet,extended 1,000 mg (2 x 500 mg) PO BID ##0 05/11/16 12/07/17 Unknown Rx
release,12 hr
canagliflozin 100 mg tablet 100 mg PO DAILY 12/07/17 12/07/17 Unknown History
(Invokana)
carvedilol 6.25 mg tablet 18.75 mg PO BID 12/07/17 12/07/17 Unknown History
cholecalciferol (vitamin D3) 125 5,000 unit PO DAILY 12/07/17 12/07/17 Unknown History
mcg (5,000 unit) disintegrating
tablet
clopidogrel 75 mg tablet 75 mg PO NOON 12/07/17 12/07/17 Unknown History
esomeprazole magnesium 40 mg 40 mg PO 0800,1600 12/07/17 12/07/17 Unknown History
capsule,delayed release (Nexium)
famotidine 20 mg tablet 20 mg PO BID 12/07/17 12/07/17 Unknown History
furosemide 20 mg tablet 20 mg PO DAILYPRN PRN as needed 12/07/17 12/07/17 Unknown History
glipizide 10 mg tablet 10 mg PO BID 12/07/17 12/07/17 Unknown History
haggrspl-oak-njihx acid 0.4 1 ea PO 1600 12/07/17 12/07/17 Unknown History
mg-lycopene 300 mcg-lutein 250 mcg
tablet (Centrum Silver)
nitroglycerin 0.1 mg/hr 0.4 mg topical DAILY 12/07/17 12/07/17 Unknown History
transdermal 24 hour patch
(Minitran)
oxybutynin chloride 5 mg tablet 5 mg PO BID 12/07/17 12/07/17 Unknown History
valsartan 80 mg tablet 80 mg PO DAILY 12/07/17 12/07/17 Unknown History
codeine 10 mg-guaifenesin 100 mg/5 5 ml PO Q6H PRN Cough #120 mL 11/05/24 Unknown Rx
mL oral liquid
oseltamivir 30 mg capsule (Tamiflu) 30 mg PO BID 5 days #10 caps 11/05/24 Unknown Rx
Review of Systems
-
Unable to Obtain full review of systems at this time due to: Patient Intubation
History Source: Family
All other systems: Negative unless noted
Vitals / Labs / Diagnostic Testing
Vital Signs
Pulse Resp BP Pulse Ox
84 20 105/50 98
11/07/24 08:50 11/07/24 08:50 11/07/24 08:50 11/07/24 07:00
Lab Data
11/07/24 05:45
Laboratory Results
11/07/24 11/07/24
06:09 07:21
pH 6.97 L* Cancelled
pCO2 63 H Cancelled
pO2 32 L* Cancelled
HCO3 14.5 L* Cancelled
O2 Delivery Level 100% Cancelled
Diagnostic Testing:
Physical Exam
-
HEENT: Normocephalic, Anicteric, Other (Pupils sluggish) and Other (Left upper extremity midline)
Cardiovascular: S1/S2, Regular Rhythm (Paced), Murmur (n), Rub (n), Peripheral Edema (n) and Other (Left lower extremity IO access)
Respiratory: Wheeze (n), Rales (few), Rhonchi (few), Non-Labored Respirations and Other (ET tube)
GI: Soft and Non Distended
Neurology: Other (Opens eyes to sternal rub, does not follow commands)
Skin: Other (No rash)
General: Comfortable (Sedated)
Assessment
-
79-year-old male with history of coronary disease with stents, bypass surgery x 2, diabetes, sleep apnea, pulm hypertension, recently diagnosed influenza A 11/05 started on Tamiflu. Presents in respiratory failure, status post cardiac arrest en
route (initial rhythm asystole), epinephrine x 4, CPR for 20 minutes, intubated en route, found to have bilateral infiltrates, hypotension requiring epinephrine, norepinephrine, admitted to ICU
VDRF, intubated in the field 11/07/2024
Cardiac arrest, asystole in the field
CPR x 20 minutes, epinephrine x 4, ROSC
Bilateral infiltrates
pneumonia vs CHF
Acute influenza A, diagnosed 11/05/2024
On Tamiflu
Severe metabolic acidemia
elevated lactate
Questionable seizure activity
Twitching of the frontotemporal muscle
Anemia
Leukocytosis
Hyponatremia
Mildly elevated troponin
Hyperglycemia
Conditions present prior to admission
Coronary disease with CABG x 3, last 1999
Multiple stents, 5, yearly catheterization at [place], last stent 2022?
Ischemic cardiomyopathy, EF 30%
Recent echo 11/03/2024, EF 30%
Severe pulm hypertension, PA pressure 58, reduced RV function and enlarged size
ICD
Chronic atrial fibrillation, status post Watchman
Did not tolerate Eliquis due to tongue bleeding, ecchymoses
On amiodarone
Hypertension/hyperlipidemia
Zyr-lqhmpjb-xpevcflwh diabetes
CKD stage IV
History of gastric banding in the past
Chronic back pain, sciatica
Progressive deconditioning over the past 6 months, per family
Plan/recommendations
At this time, patient is critically ill
Multisystem organ dysfunction, downtime at least 20 minutes
Questionable seizure activity versus myoclonus at the bedside
Currently on epinephrine, norepinephrine, paced rhythm per EKG
severe metabolic acidemia
Bilateral infiltrates
Moving forward
Continue with volume-cycled ventilation, repeat ABG, wean FiO2 as possible
Will wean sedation to reassess neurological status but otherwise maintain sedation
Tracheal culture, empiric antibiotics, currently on cefepime/vancomycin
Tamiflu
Troponin mildly elevated
Suspect event may be secondary to respiratory event, bilateral pneumonia?
Ischemic cardiomyopathy known, recent echo 11/03 reviewed
EF 30%, PA pressure 58
Patient with severe chronic cardiac disease, gets yearly catheterization per family, primary followed at [place]
Cardiology following
Echocardiogram pending
Remains on amiodarone therapy. Patient on aspirin and Plavix as outpatient
Will defer anticoagulation to cardiology
Head CT with mild anoxic injury
Downtime 20 minutes of CPR
Initial pH less than 7
Questionable seizure activity at the bedside, frontotemporal muscle twitching
Ativan x 1
Neurology consulted, questionable EEG
Not optimal candidate for TTM protocol given multiple comorbidities, hypotension, questionable seizure activity
CKD stage IV
Creatinine 1.[address] Navas catheter[address] Follow I's and O's
Follow blood sugars, history of diabetes
DVT prophylaxis: Mechanical prophylaxis for now, pharmacological prophylaxis subcutaneous heparin every 8hr
GI prophylaxis: Remains on Protonix
Reviewed with critical care nursing, respiratory care, briefly with cardiology, primary service
Updated son and daughter at length at bedside. Daughter is a primary care physician
All questions answered
TCCT 45 min
Data
Echo 03/10/2023 entheses [place]): EF 30%, RV mildly dilated, mildly reduced RV function, moderate MR
08/27/2022: Known occlusion of RCA, patent SVG grafts, no restenosis of the ostial circumflex stent
[2024-11-07] MEDS: ATIVAN 2 MG IV ×2 (10:00→11:56)
[2024-11-07] MEDS: VANCOCIN 540 MG IV (10:02)
--- NOTE | 2024-11-07 10:20 | CON.CAR ---
Addendum entered and electronically signed by Kassidy Manuel MD 11/07/24 12:41:
I met with the family at the bedside. We had discussion regarding current cardiac status and concern regarding neurologic status. I explained best to wait 48 hours and continue current support. They wanted to know prognosis and I did explain that
he was critically ill and current prognosis had much to do with neurologic status.
They provided information that his defibrillator is [employer]. He does have an abandoned lead.
They did provide blood work 10/28/2024 with normal free T4 TSH mildly elevated at 5.26. They tell me he has been anemic and ferritin was 48 total iron binding capacity was 338 iron was 26 and iron saturation was 8.
-He had an echocardiogram also at [facility] a few days ago with ejection fraction 30 to 35%. Right ventricle mildly reduced right ventricular function. Mild aortic valve insufficiency. Mild to moderate MR. Moderate to severe pulmonary hypertension
noted.
He also recently was assessed and did not have cardiac amyloid with normal PYP study.
I offered them support.
Original Note:
Consultation
Consultation Request
Date/Time Consultation Requested: 11/07/2024 at 8:30 AM
Date/Time Consultation Performed: 11/07/2024 at 10:30 AM
Requesting Provider: Dr. Fuentes
Performing Provider: Dr Kassidy Manuel
Reason for Consultation: Cardiac arrest
Medical History
-
Chief Complaint: Cardiac arrest
History of Present Illness:
Patient unable to provide history he is intubated and sedated on the ventilator. History obtained from records and multiple sources. He has history of coronary artery disease status post CABG surgery x 2, multiple coronary stents, ischemic
cardiomyopathy status post ICD. He has atrial fibrillation status post Watchman procedure. In addition he has ign-whbxktx-ermilgsrd diabetes and hyperlipidemia.
According to records he was seen in the emergency 2 days ago with shortness of breath and diagnosed with influenza (Tamiflu). He did not require oxygen. He was discharged. He began having worsening orthopnea and dyspnea on exertion. He was using
his CPAP for support at home. Given worsening EMS was called and he was in respiratory distress. He was hypoxic and given more oxygen. Upon transfer to the ambulance he had PEA arrest, asystole was noted. He received 3-4 rounds of epinephrine
both in the ambulance and hospital. Downtime suspected to be 20 minutes. He was intubated. He remains on multiple pressors for support. In addition he is having some eye opening movements and leg twitching that are not clearly purposeful.
---
According to old records (2022) obtained from [facility] he has CAD with CABG with multiple subsequent stents (shockwave in 2021). Pulmonary hypertension (PVR 3, 2021). Persistent atrial fibrillation with multiple EP interventions
previously on amiodarone. Hypertension, hyperlipidemia, diabetes, iron deficiency anemia, obstructive sleep apnea on CPAP.
Past Medical History
Past Medical History: Arrhythmias (Atrial fibrillation), CHF (Ischemic cardiomyopathy), GERD, NIDDM and Other (Watchman device, ICD, CKD, obstructive sleep apnea,)
Past Surgical History: Cardiac (CABG twice possibly 1989 and 1999-[facility]), Cholecystectomy and Other ( bariatric surgery 2008 with 2 revisions)
Social History
Tobacco: Non-Smoker
Living: With Family
Family History
Family History: CAD (Mother and brother)
Allergies / Home Medications
Allergy/AdvReac Type Severity Reaction Status Date / Time
No Known Allergies Allergy Verified 11/05/24 15:40
�Medication �Instructions �Recorded �Confirmed �Type
rosuvastatin 20 mg tablet 40 mg PO 2100 09/23/14 12/07/17 History
aspirin 325 mg tablet 325 mg PO 1600 ##0 05/11/16 12/07/17 Rx
fenofibrate nanocrystallized 145 145 mg PO DAILY ##0 05/11/16 12/07/17 Rx
mg tablet
ferrous sulfate 325 mg (65 mg 325 mg PO BID@1200,2100 ##0 05/11/16 12/07/17 Rx
iron) tablet (FeroSul)
folic acid 1 mg tablet 1 mg PO DAILY ##0 05/11/16 12/07/17 Rx
ranolazine 500 mg tablet,extended 1,000 mg (2 x 500 mg) PO BID ##0 05/11/16 12/07/17 Rx
release,12 hr
canagliflozin 100 mg tablet 100 mg PO DAILY 12/07/17 12/07/17 History
(Invokana)
carvedilol 6.25 mg tablet 18.75 mg PO BID 12/07/17 12/07/17 History
cholecalciferol (vitamin D3) 125 5,000 unit PO DAILY 12/07/17 12/07/17 History
mcg (5,000 unit) disintegrating
tablet
clopidogrel 75 mg tablet 75 mg PO NOON 12/07/17 12/07/17 History
esomeprazole magnesium 40 mg 40 mg PO 0800,1600 12/07/17 12/07/17 History
capsule,delayed release (Nexium)
famotidine 20 mg tablet 20 mg PO BID 12/07/17 12/07/17 History
furosemide 20 mg tablet 20 mg PO DAILYPRN PRN as needed 12/07/17 12/07/17 History
glipizide 10 mg tablet 10 mg PO BID 12/07/17 12/07/17 History
mlanpyme-sbp-wmjua acid 0.4 1 ea PO 1600 12/07/17 12/07/17 History
mg-lycopene 300 mcg-lutein 250 mcg
tablet (Centrum Silver)
nitroglycerin 0.1 mg/hr 0.4 mg topical DAILY 12/07/17 12/07/17 History
transdermal 24 hour patch
(Minitran)
oxybutynin chloride 5 mg tablet 5 mg PO BID 12/07/17 12/07/17 History
valsartan 80 mg tablet 80 mg PO DAILY 12/07/17 12/07/17 History
codeine 10 mg-guaifenesin 100 mg/5 5 ml PO Q6H PRN Cough #120 mL 11/05/24 Rx
mL oral liquid
oseltamivir 30 mg capsule (Tamiflu) 30 mg PO BID 5 days #10 caps 11/05/24 Rx
Review of Systems
-
Unable to obtain full review of systems at this time due to: Patient Intubation
All other systems: Negative unless noted
Respiratory: Trouble Breathing
Physical Exam
Vital Signs
Temp Pulse Resp BP Pulse Ox
96.6 F L 84 20 105/50 98
11/07/24 09:57 11/07/24 08:50 11/07/24 08:50 11/07/24 08:50 11/07/24 07:00
Lab Results
11/07/24 05:45
Troponin I 0.051 ng/ml H* 11/07/24 05:45
General: Ill-appearing man
Heart: Distant heart sounds tacky
Lungs: Coarse anterior breath
Abdomen: distended.
Extremities: No clubbing, cyanosis and trace edema bilaterally.
Neuro: Sedated on vent intermittent eye-opening
Impression / Plan
-
Impression:
Respiratory PEA arrest in the setting of influenza
Vent dependent respiratory failure with bilateral infiltrates pneumonia, heart failure, possibly ARDS
Influenza diagnosed 11/05/2024 on Tamiflu
Shock with lactic acidosis
Acute heart failure with reduced ejection
Coronary artery disease status post CABG twice 2 (1989 and 1999) with multiple stents in the past
Most recent intervention 07/02/2022 treatment of in-stent stenosis of ostial circumflex with shockwave ([facility])
Atrial fibrillation
ICD with prior pacemaker
Chronic kidney disease
Sleep apnea
Diabetes mellitus
Hyperlipidemia
GERD
Fatty liver
CT scan of the head with mild acute hypoxic ischemic encephalopathy and severe atherosclerotic plaque intracranial internal carotid arteries
Echocardiogram 11/07/2024: Normal LV size with left ventricular ejection fraction 40 to 45%. Abnormal septal motion. Inferior and inferoseptal wall hypokinesis. Mild LVH. Normal RV size and function although RV not well-seen. Trivial AI with
aortic valve sclerosis. Mild TR with PA pressure 40 to 45 mmHg. Mild MR
Transthoracic echo 03/10/2023: Left ventricular ejection fraction 30 to 35% with mild LVH. RV mildly dilated with mildly reduced systolic function. Mild to moderate MR. Mild TR.
Left heart catheterization 07/02/2022: Patent SVG grafts to mid and distal LAD and OM. Known occlusion proximal RCA faintly collateralized. In-stent restenosis ostial circumflex treated with shockwave 3 x 12 mm for multiple inflations then
postdilated with 3.5 x 12 mm NC balloon.
Right heart catheterization 08/27/2022: RA 13 PA 59/23 mean 38 PCW 22 cardiac output 3.28 cardiac index 1.74 SVR 1388 PVR 3 Avalos units
Plan:
Patient presents with respiratory/PEA arrest in the setting of influenza. Possible 20-minute downtime. Chest x-ray also consistent with severe pulmonary edema. History of moderate cardiomyopathy with heart failure with reduced ejection fraction,
coronary artery disease, paroxysmal atrial fibrillation on amiodarone and ICD.
Likely respiratory PEA arrest in the setting of influenza. Chest x-ray with pulmonary edema versus pneumonia versus ARDS. Shock with lactic acidosis and hypotension.
Treatment per reproduction technician and primary service
Intubated with vent dependent respiratory failure
Continue support with Levophed and epinephrine. Wean as tolerates.
Panculture and antibiotics per primary service
Neurologic status unclear eye opening and occasional twitching not necessarily purposeful. Await neurology opinion.
Influenza/pneumonia:
Antibiotic treatment/Tamiflu
Cultures
Supportive care
On ventilator
Acute heart failure with reduced ejection fraction and severe pulmonary edema by chest x-ray (versus pneumonia versus ARDS)
Check proBNP level (11/05/2024 proBNP 3010)
Lasix 40 mg IV now continue to reassess.
Given critical illness and hypotension hold on guideline directed medical therapy
Did not tolerate MRA in the past given hyperkalemia
Coronary artery disease status post 2 CABG surgeries and multiple stents
Continue to trend troponins initial troponin 0.051 after CPR now troponin 0.156.
Echocardiogram performed as noted on epinephrine and norepinephrine ejection fraction stable at 40 to 45% (previously 30 to 35%). Mild increased PA pressure.
Continue aspirin and Plavix given prior in-stent recent stenosis (2021)
Atrial fibrillation
Status post watchman
Amiodarone
Check TSH
ICD with prior pacemaker
Interrogated in a.m.
Hyperlipidemia
Eventually resume medication
Sleep apnea
On CPAP at home
Chronic kidney disease
Continue to follow creatinine
Diabetes
Defer to primary service
I spent 62 minutes critical care time in discussion, review of records, discussing with colleagues including nursing and reproduction technician and family. In addition reviewing studies and altering medical treatment plan
Data Reviewed
-
EKG: Tracing Personally Visualized and interpreted
Radiology: Image Personally Visualized and interpreted and Report Reviewed by me
Medical Tests (Nuc Med, Echo etc): Image Personally Visualized and interpreted and Report Reviewed by me
Labs: Labs Reviewed by me and Discussed with Physician
Old Records: Requested and Reviewed
Critical Care Time (in minutes): 62 minutes
--- NOTE | 2024-11-07 10:44 | CON.NEURO ---
Consultation
Order
Date of Consultation: 11/07/24
Requesting Provider: Rodolfo Ballesteros MD
Reason for Consult: encephalopathy
neurology Consultation Note.
HPI: This is a 79-year-old man who presented to [facility] on 11/07/2024 with [id number] witnessed cardiac arrest. According to EMS patient suffered and asystolic cardiac arrest during the transfer to ER. He received 3-4 rounds
of epinephrine and was intubated en route.
ER VS: 102/61-89/42, 71, T�35.9C
EKG: paced, QTc Int : 584 ms
PDMP:Ketamine Hcl Powder 41.40 filled in on 09/13/2024, 09/25/2023
Labs: WBC�12.1, hemoglobin�10.1,
PH 7.31, PaO2�32-119, pCO2�63-41
Influenza A positive
CT head wo contrast (11/07/2024)�effacement of the cerebellar folia consistent with edema from acute hypoxic-ischemic encephalopathy. There is mild loss of the normal pdow-ppxem-xylje matter differentiation in the cerebral hemispheres and mild diffuse
cerebral edema with slight sulcal effacement compared with the prior exam performed 06/29/2024. The deep dunbar-white matter differentiation is not completely disrupted. There is mild diffuse cerebral volume loss which is less pronounced secondary to
the presence of cerebral edema.
CXR-severe acute pulmonary edema
CTA head/neck
PMH:CAD, A-Fib, ICM, HTN, DLP, DM, CKD, vit D deficiency, GERD, TANI
PSH:AICD, CABG, gastric banding, cholecystectomy, maze procedure,
SH:; retired
All:NKDA
ROS: Unable due to encephalopathy
General: Intubated, sedated. RR=vent
Cardio: Extremities are without cyanosis or edema.
Neuro:
Mental Status: Comatose
Cranial Nerves: Orthophoric primary gaze. Pupil 2.5 mm, nonreactive. Corneals�oculocephalics gag, cough-neg.
Motor: Flaccid quadriplegia
Reflexes: Plantar response�mute
Sensory: Does not grimace to noxious stimuli
Coordination: No tremors myoclonic movements.
Gait: deferred
Assessment and Plan:
I. Multifactorial encephalopathy (toxic, hypoxic, vascular, infectious)
II. S/p asystolic cardiac arrest
III. Influenza A
-Aspiration precautions
-Avoid cerebral hypoperfusion
-Wean off sedation as tolerated
-Avoid medications, known to lower seizure threshold.
-Repeat CT head if consistent with goals of care
I personally reviewed all radiology and labs along with past medical records pertinent to current medical problems. Total time spent in patient care is 62 minutes.
Thank you for allowing us to participate in the care of this patient. We will continue to follow. Please do not hesitate to contact us with any questions or concerns.
Subjective/Objective
Subjective Data
Date of Service: November 07, 2024
Objective Data
Vital Signs
Temp Pulse Resp BP Pulse Ox
35.9 C L 84 20 105/50 100
11/07/24 09:57 11/07/24 08:50 11/07/24 08:50 11/07/24 08:50 11/07/24 10:42
Lab Results
11/07/24 05:45
Sodium 132 mmol/L (135-145) L 11/07/24 05:45
Potassium 4.7 mmol/L (3.5-5.1) 11/07/24 05:45
BUN 46 mg/dl (9-20) H 11/07/24 05:45
Glucose 372 mg/dl (70-99) H 11/07/24 05:45
Calcium 7.5 mg/dl (8.4-10.2) L 11/07/24 05:45
Patient Allergies
No Known Allergies Allergy (Verified 11/05/24 15:40)
Medications
-
Active Medications
Generic Name Dose Route Start Last Admin
Trade Name Freq PRN Reason Stop Dose Admin
Acetaminophen 650 mg 11/07/24 09:19
Acetaminophen 650 Mg Rectal Suppository RECTAL 12/05/24 09:18
Q6HPRN PRN
temp > 101.5
Amiodarone HCl 200 mg 11/07/24 09:19
Amiodarone 200 Mg Tablet TUBE 12/05/24 09:18
DAILY JOHNATHAN
Aspirin 81 mg 11/07/24 08:00
Aspirin 81 Mg Chewable Tablet TUBE 12/05/24 07:59
DAILY JOHNATHAN
Cefepime HCl 2,000 mg 11/07/24 20:00
Cefepime Hcl 2,000 Mg/12.5 Ml Vial IV
Q12H JOHNATHAN
Clopidogrel Bisulfate 75 mg 11/07/24 12:00
Clopidogrel 75 Mg Tablet TUBE 12/05/24 11:59
NOON JOHNATHAN
Cyclosporine 1 drops 11/07/24 09:19
Cyclosporine 0.05% (Ophthalmic Emulsion) 10 Drop Droperette OPHTH 12/05/24 09:18
BID JOHNATHAN
Fentanyl Citrate 50 mcg 11/07/24 08:08
Fentanyl (50 Mcg/Ml) 100 Mcg/2 Ml Ampul IV 11/21/24 08:07
[id number] PRN
see protocol
Protocol
Guaifenesin/Dextromethorphan 5 ml 11/07/24 09:19
Guaifenesin/Dextromethorphan 200 Mg/10 Ml Cup TUBE 12/05/24 09:18
Q6HPRN PRN
cough
Heparin Sodium 5,000 units 11/07/24 09:19
Heparin 5,000 Units/Ml 1 Ml Vial SC 12/05/24 09:18
Q8 JOHNATHAN
Propofol 1,000,000 mcg in 100 mls @ 0 mls/hr 11/07/24 08:08 11/07/24 08:15
Diprivan IV 100 mls
PER PROTOCOL JOHNATHAN Administration
Protocol
Per Protocol
Norepinephrine Bitartrate 4 mg in 250 mls @ 0 mls/hr 11/07/24 08:08 11/07/24 10:00
Levophed IV 250 mls
PER PROTOCOL JOHNATHAN Administration
Protocol
Per Protocol
Epinephrine HCl 4 mg in 250 mls @ 0 mls/hr 11/07/24 08:08 11/07/24 08:43
Adrenalin IV 250 mls
PER PROTOCOL JOHNATHAN Administration
Protocol
Per Protocol
Vancomycin HCl 2,000 mg/ 540 mls @ 270 mls/hr 11/07/24 09:19 11/07/24 10:02
Sodium Chloride IV 11/07/24 11:18 540 mls
NOW STA Administration
Vancomycin HCl 1 each/ Device 0 mls @ 0 mls/hr 11/07/24 09:19
IV
PER PROTOCOL JOHNATHAN
As Directed
Insulin Aspart 0 units 11/07/24 09:19
Insulin Aspart Low Resistance 300 Units/3 Ml Pen.Injctr SC 12/05/24 09:18
Q4H JOHNATHAN
Protocol
Lorazepam 2 mg 11/07/24 09:58 11/07/24 10:00
Lorazepam 2 Mg/Ml Vial IV 11/07/24 09:59 2 mg
NOW STA Administration
Ondansetron HCl 4 mg 11/07/24 09:19
Ondansetron 4 Mg/2 Ml Vial IV 12/05/24 09:18
Q6HPRN PRN
NAUSEA/VOMITING
Oseltamivir Phosphate 30 mg 11/07/24 09:19
Oseltamivir (Tamiflu) 30 Mg Capsule PO 11/12/24 09:18
BID JOHNATHAN
Pantoprazole Sodium 40 mg 11/07/24 09:19
Pantoprazole Sodium 40 Mg/10 Ml Vial IV 12/05/24 09:18
DAILY JOHNATHAN
Polyethylene Glycol 17 grams 11/08/24 08:00
Polyethylene Glycol Powder 17 Grams Packet TUBE 12/06/24 07:59
DAILY JOHNATHAN
Rosuvastatin Calcium 40 mg 11/07/24 18:00
Rosuvastatin (Crestor) 40 Mg Tablet TUBE 12/05/24 17:59
QPM JOHNATHAN
Sodium Chloride 0 flush 11/07/24 11:00
Sodium Chloride 0.9% (Flush) Syringe IV 12/05/24 10:59
PER PROTOCOL JOHNATHAN
Home Medications
�Medication �Instructions �Recorded
rosuvastatin 20 mg tablet 40 mg PO 2100 09/23/14
aspirin 325 mg tablet 325 mg PO 1600 ##0 05/11/16
fenofibrate nanocrystallized 145 145 mg PO DAILY ##0 05/11/16
mg tablet
ferrous sulfate 325 mg (65 mg 325 mg PO BID@1200,2100 ##0 05/11/16
iron) tablet (FeroSul)
folic acid 1 mg tablet 1 mg PO DAILY ##0 05/11/16
ranolazine 500 mg tablet,extended 1,000 mg (2 x 500 mg) PO BID ##0 05/11/16
release,12 hr
canagliflozin 100 mg tablet 100 mg PO DAILY 12/07/17
(Invokana)
carvedilol 6.25 mg tablet 18.75 mg PO BID 12/07/17
cholecalciferol (vitamin D3) 125 5,000 unit PO DAILY 12/07/17
mcg (5,000 unit) disintegrating
tablet
clopidogrel 75 mg tablet 75 mg PO NOON 12/07/17
esomeprazole magnesium 40 mg 40 mg PO 0800,1600 12/07/17
capsule,delayed release (Nexium)
famotidine 20 mg tablet 20 mg PO BID 12/07/17
furosemide 20 mg tablet 20 mg PO DAILYPRN PRN as needed 12/07/17
glipizide 10 mg tablet 10 mg PO BID 12/07/17
dzwntrla-lda-fbplc acid 0.4 1 ea PO 1600 12/07/17
mg-lycopene 300 mcg-lutein 250 mcg
tablet (Centrum Silver)
nitroglycerin 0.1 mg/hr 0.4 mg topical DAILY 12/07/17
transdermal 24 hour patch
(Minitran)
oxybutynin chloride 5 mg tablet 5 mg PO BID 12/07/17
valsartan 80 mg tablet 80 mg PO DAILY 12/07/17
codeine 10 mg-guaifenesin 100 mg/5 5 ml PO Q6H PRN Cough #120 mL 11/05/24
mL oral liquid
oseltamivir 30 mg capsule (Tamiflu) 30 mg PO BID 5 days #10 caps 11/05/24
Vital Signs and Labs
-
Vital Signs and Labs:
Vital Signs
Temp Pulse Resp BP Pulse Ox
36.2 C 88 20 99/63 96
11/07/24 11:07 11/07/24 12:24 11/07/24 11:30 11/07/24 12:24 11/07/24 11:30
Lab Results
11/07/24 05:45
11/07/24 10:45
PT 18.4 Sec (11.4-14.6) H 11/07/24 10:45
INR 1.51 11/07/24 10:45
Sodium 128 mmol/L (135-145) L 11/07/24 10:45
Potassium 5.2 mmol/L (3.5-5.1) H 11/07/24 10:45
BUN 52 mg/dl (9-20) H 11/07/24 10:45
Glucose 460 mg/dl (70-99) H* 11/07/24 10:45
Calcium 7.6 mg/dl (8.4-10.2) L 11/07/24 10:45
Kpj-W-Fnaagudtspw Pept 9250 pg/ml 11/07/24 05:45
Medications
-
Medications:
Generic Name Dose Route Start Last Admin
Trade Name Freq PRN Reason Stop Dose Admin
Acetaminophen 650 mg 11/07/24 09:19
Acetaminophen 650 Mg Rectal Suppository RECTAL 12/05/24 09:18
Q6HPRN PRN
temp > 101.5
Amiodarone HCl 200 mg 11/07/24 09:19
Amiodarone 200 Mg Tablet TUBE 12/05/24 09:18
DAILY JOHNATHAN
Aspirin 81 mg 11/07/24 08:00
Aspirin 81 Mg Chewable Tablet TUBE 12/05/24 07:59
DAILY JOHNATHAN
Cefepime HCl 1,000 mg 11/07/24 20:00
Cefepime Hcl 1,000 Mg/11.3 Ml Vial IV
Q8H JOHNATHAN
Clopidogrel Bisulfate 75 mg 11/07/24 12:00
Clopidogrel 75 Mg Tablet TUBE 12/05/24 11:59
NOON JOHNATHAN
Cyclosporine 1 drops 11/07/24 09:19
Cyclosporine 0.05% (Ophthalmic Emulsion) 10 Drop Droperette OPHTH 12/05/24 09:18
BID JOHNATHAN
Fentanyl Citrate 50 mcg 11/07/24 08:08
Fentanyl (50 Mcg/Ml) 100 Mcg/2 Ml Ampul IV 11/21/24 08:07
[id number] PRN
see protocol
Protocol
Guaifenesin/Dextromethorphan 5 ml 11/07/24 09:19
Guaifenesin/Dextromethorphan 200 Mg/10 Ml Cup TUBE 12/05/24 09:18
Q6HPRN PRN
cough
Heparin Sodium 5,000 units 11/07/24 09:19
Heparin 5,000 Units/Ml 1 Ml Vial SC 12/05/24 09:18
Q8 JOHNATHAN
Propofol 1,000,000 mcg in 100 mls @ 0 mls/hr 11/07/24 08:08 11/07/24 08:15
Diprivan IV 100 mls
PER PROTOCOL JOHNATHAN Administration
Protocol
Per Protocol
Norepinephrine Bitartrate 4 mg in 250 mls @ 0 mls/hr 11/07/24 08:08 11/07/24 10:00
Levophed IV 250 mls
PER PROTOCOL JOHNATHAN Administration
Protocol
Per Protocol
Epinephrine HCl 4 mg in 250 mls @ 0 mls/hr 11/07/24 08:08 11/07/24 08:43
Adrenalin IV 250 mls
PER PROTOCOL JOHNATHAN Administration
Protocol
Per Protocol
Vancomycin HCl 1 each/ Device 0 mls @ 0 mls/hr 11/07/24 09:19
IV
PER PROTOCOL JOHNATHAN
Protocol
As Directed
Insulin Aspart 0 units 11/07/24 12:00
Insulin Aspart Low Resistance 300 Units/3 Ml Pen.Injctr SC 12/05/24 11:59
Q6H JOHNATHAN
Protocol
Lorazepam 2 mg 11/07/24 11:51 11/07/24 11:56
Lorazepam 2 Mg/Ml Vial IV 12/05/24 11:50 2 mg
Q4HPRN PRN Administration
seizure
Oseltamivir Phosphate 30 mg 11/07/24 12:15
Oseltamivir (Tamiflu) 6 Mg/Ml In Oral Syringe TUBE 11/11/24 20:01
BID JOHNATHAN
Pantoprazole Sodium 40 mg 11/07/24 09:19 11/07/24 11:56
Pantoprazole Sodium 40 Mg/10 Ml Vial IV 12/05/24 09:18 40 mg
DAILY JOHNATHAN Administration
Polyethylene Glycol 17 grams 11/08/24 08:00
Polyethylene Glycol Powder 17 Grams Packet TUBE 12/06/24 07:59
DAILY JOHNATHAN
Rosuvastatin Calcium 40 mg 11/07/24 18:00
Rosuvastatin (Crestor) 40 Mg Tablet TUBE 12/05/24 17:59
QPM JOHNATHAN
Sodium Chloride 0 flush 11/07/24 11:00
Sodium Chloride 0.9% (Flush) Syringe IV 12/05/24 10:59
PER PROTOCOL JOHNATHAN
Sodium Chloride 10 ml 11/07/24 12:00 11/07/24 11:56
Sodium Chloride 0.9% (Preservative Free) 10 Ml Vial IV 12/05/24 11:59 10 ml
DAILY JOHNATHAN Administration
Sodium Chloride 1 ml 11/07/24 12:09
Nss (Pf) 10 Ml Vial For Ativan 2 Mg Dose IV 12/05/24 12:08
Q4HPRN PRN
IV LORAZEPAM DILUTION
Sterile Water 10 ml 11/07/24 20:00
Sterile Water For Injection 10 Ml Vial IV 12/05/24 19:59
Q8H JOHNATHAN
Home Medications
-
Home Medications
rosuvastatin 20 mg tablet 40 mg PO 2100 09/23/14
aspirin 325 mg tablet 325 mg PO 1600 ##0 05/11/16
fenofibrate nanocrystallized 145 mg tablet 145 mg PO DAILY ##0 05/11/16
ferrous sulfate 325 mg (65 mg iron) tablet (FeroSul) 325 mg PO BID@1200,2100 ##0 05/11/16
folic acid 1 mg tablet 1 mg PO DAILY ##0 05/11/16
ranolazine 500 mg tablet,extended release,12 hr 1,000 mg (2 x 500 mg) PO BID ##0 05/11/16
canagliflozin 100 mg tablet (Invokana) 100 mg PO DAILY 12/07/17
carvedilol 6.25 mg tablet 18.75 mg PO BID 12/07/17
cholecalciferol (vitamin D3) 125 mcg (5,000 unit) disintegrating tablet 5,000 unit PO DAILY 12/07/17
clopidogrel 75 mg tablet 75 mg PO NOON 12/07/17
esomeprazole magnesium 40 mg capsule,delayed release (Nexium) 40 mg PO 0800,1600 12/07/17
famotidine 20 mg tablet 20 mg PO BID 12/07/17
furosemide 20 mg tablet 20 mg PO DAILYPRN PRN as needed 12/07/17
glipizide 10 mg tablet 10 mg PO BID 12/07/17
qshxftdu-bjc-xxkqt acid 0.4 mg-lycopene 300 mcg-lutein 250 mcg tablet (Centrum Silver) 1 ea PO 1600 12/07/17
nitroglycerin 0.1 mg/hr transdermal 24 hour patch (Minitran) 0.4 mg topical DAILY 12/07/17
oxybutynin chloride 5 mg tablet 5 mg PO BID 12/07/17
valsartan 80 mg tablet 80 mg PO DAILY 12/07/17
codeine 10 mg-guaifenesin 100 mg/5 mL oral liquid 5 ml PO Q6H PRN Cough #120 mL 11/05/24
oseltamivir 30 mg capsule (Tamiflu) 30 mg PO BID 5 days #10 caps 11/05/24
[2024-11-07 10:54] LABS: B.E. -5.3 mmol/L; HCO3 20.6 mmol/L (21-28); O2 Saturation % 98.4 % (94-98); PCO2 41 mmHg (35-48); PO2 119 mmHg (83-108); pH 7.31 (7.35-7.45)
--- NOTE | 2024-11-07 10:59 | W.PN.HOSP.TC ---
Today's Communication/Plan
-
IV antibiotics. Pressors. Mechanical ventilation. IV Lasix. Repeat CT of the head.
Assessment / Plan
Assessment / Plan
Physical Exam
General: Intubated
HEENT: NormoCephalic, Anicteric, Moist mucous membranes, Atraumatic, [place] Conjunctivae and Oxygen
Respiratory: Crackles
Cardiac: S1/S2 and Regular Rhythm
GI: Soft, Non Tender, Non Distended and Normal Bowel Sounds
Rectal: Deferred by Provider
Genito-urinary: Deferred by me
Musculoskeletal: No Clubbing, No Cyanosis and No Edema
Skin: Warm
Neuro: Other (unresponsive)
Hematologic/Lymphatic: No Lymphadenopathy
Echo:
Normal left ventricular chamber size. Mildly reduced left ventricular systolic
function. Left ventricular ejection fraction is 40-45%. Abnormal septal
motion. The inferior and inferoseptal fritz are hypokinetic. Mild concentric
left ventricular hypertrophy. Stage II diastolic dysfunction suggestive of
abnormal relaxation and increased filling pressures.
Normal right ventricular size. Normal right ventricular systolic function.
Structurally normal mitral valve. Mitral valve opens normally. Mild mitral
regurgitation.
Trileaflet aortic valve. Aortic valve opens normally. Trivial aortic
regurgitation. Aortic valve sclerosis.
Mild tricuspid regurgitation. Estimated pulmonary artery pressure of 40-45
mmHg. Assuming a right atrial pressure of 8 mmHg.
Compared to last available study from [place] 03/2023 ejection fraction
previously was described at 30 to 35% now 40 to 45%. Previously right
ventricle was described as mildly dilated currently normal in size although not
well-seen.
A/P:
1. Cardiac Arrest - PEA, suspect hypoxic mediated which may be due to influenza/pneumonia versus CHF exacerbation. Inital ECG is unchanged from prior and paced. Trop 0.05. No complaints of CP.
- admit to icu
-Initial rhythm asystole and received epinephrine x 4 and CPR for about 20 minutes
- not a candidate for therapeutic cooling given multiple comorbidities, hypertension, possible seizure activity.
- CT Head with mild anoxic injury. Neurology consulted
- Keep MAP > 65 for now with pressors
- light sedation to maintain oxygenation
- trend troponins
- echo
- cardiology consulted.
-Discussed with several family members at bedside on 11/07 including heart failure specialist and physician who is his daughter and several other relatives in the room. While prognosis is guarded they would lie him to remain full code.
-Would recommend to repeat CT scan tomorrow but also follow neurology recommendations
-Discussed with critical care over the phone today.
2. Respiratory failure - Patient likely in some CHF exacerbation with pulmonary edema. No significant peripheral edema so likely flashed, vs influenza ards with pneumonia.
- intubated, PEEP currenty at 5 with sat of 100
- repeat blood gas pending, ETCO2 encouraging
- light sedation as above
- no h/o COPD or asthma.
- ARDSNET protocol if needed
- gi ppx
- grapple operator consulted and appreciated input
-On IV cefepime and vancomycin
-Continue mechanical ventilation
3. Influenza - Cannot rule out ARDS entirely or bacterial superimposed pneumonia
- continue tamiflu
- blood cultures, urine cultures, sputum cultures
- broad spectrum abx Cefepime and Vancomycin for now
4.Heart Failure - Suspect cardiogenic pulmonary edema and possibly cardiogenic shock s/p PEA arrest.
- pressors to maintain map > 65
- attempt to diurese once stabilized more, holding lasix for now
- echo
- continue aspirin/plavix
- holding GDMT including coreg, valsartan,
5. CAD - no STEMI. Suspected myocardial injury. Complex cardiac history
- continue asa/plavix/statin. Cardiology consulted and pending evaluation
- holdin imdur and ranexa for now
6. AFIB
- s/p ppm aicd and watchman. Rate is controlled
- restart coreg as tolerated
-Will defer anticoagulation to cardiology
7. DM II - initial hyprglycemia
- holding glizide/metformin.
- npo, sliding scale q4 hours
8. Anoxic encephalopathy. Seizures
Abnormal CT of the head
Possible seizure witnessed
Neurology consulted. Evaluation
DVT PPX - heparin sq
Code status - full code and prognosis guarded
Total Critical Care Time__45___ minutes. I was immediately available to the patient and staff. I personally examined, reviewed labs, diagnostic images/reports, interpretations, treatment plans, discussed patient care with other providers and
family or caregivers (if patient is unable to make decisions), entered orders as appropriate and documented the medical record.
Anticipated Discharge: > 48 hours
Subjective/Interval History
-
Date of Service: November 07, 2024
Patient remains critically ill. On ventilator.
Objective Data
-
Labs:
Laboratory Results
11/07/24 11/07/24 11/07/24
05:45 06:09 07:21
WBC 12.1 H
Hgb 10.1 L
Hct 32.2 L
Plt Count 82 L
PT
INR
HCO3 14.5 L* Cancelled
Sodium 132 L
Potassium 4.7
Chloride 96 L
Carbon Dioxide 17 L
BUN 46 H
Creatinine 1.7 H
Glucose 372 H
Calcium 7.5 L
Total Bilirubin 0.9
AST 62 H
ALT 48
Alkaline Phosphatase 64
11/07/24 11/07/24
10:37 10:45
WBC
Hgb
Hct
Plt Count
PT Pending
INR Pending
HCO3 20.6 L
Sodium Pending
Potassium Pending
Chloride Pending
Carbon Dioxide Pending
BUN Pending
Creatinine Pending
Glucose Pending
Calcium Pending
Total Bilirubin
AST
ALT
Alkaline Phosphatase
Vital Signs:
Vital Signs
Temp Pulse Resp BP Pulse Ox
96.6 F L 84 20 105/50 100
11/07/24 09:57 11/07/24 08:50 11/07/24 08:50 11/07/24 08:50 11/07/24 10:42
[2024-11-07 11:16] LABS: INR 1.51; PT 18.4 Sec (11.4-14.6)
[2024-11-07 11:20] LABS: Urine Albumin 3+ (Neg - Trace); Urine Bilirubin Negative (Negative); Urine Character Clear (Clear); Urine Color Yellow; Urine Glucose 4+ (Negative); Urine Ketone Negative (Negative); Urine Leukocyte Negative (Negative); Urine Nitrite Negative (Negative); Urine Occult Blood 1+ (Negative); Urine Specific Gravity 1.015 (<1.030); Urine Urobilinogen Negative (Neg - 1+)
[2024-11-07 11:25] LABS: Lactic Acid 3.3 mmol/L (0.7-2.0)
[2024-11-07 11:31] LABS: Troponin I 0.156 ng/ml
[2024-11-07 11:44] LABS: NT-proBNP 9250 pg/ml
[2024-11-07 11:54] LABS: Urine Bacteria Few (Negative)
[2024-11-07 11:56] LABS: Blood Urea Nitrogen 52 mg/dl (9-20); Calcium 7.6 mg/dl (8.4-10.2); Carbon Dioxide 21 mmol/L (22-30); Chloride 89 mmol/L (98-107); Estimated Creatinine Clearance 29 ml/min; Glucose 460 mg/dl (70-99); Potassium 5.2 mmol/L (3.5-5.1); Sodium 128 mmol/L (135-145); Triglycerides 118 mg/dl (10-149); eGFR 31.82
[2024-11-07] MEDS: NSS (PRESERVATIVE FREE) 10 ML IV (11:56)
[2024-11-07] MEDS: MAXIPIME 2000 MG IV (11:56)
[2024-11-07] MEDS: NSS (PRESERVATIVE FREE) 1 ML IV (11:56)
[2024-11-07] MEDS: PROTONIX IV 40 MG IV (11:56)
[2024-11-07] MEDS: STERILE WATER FOR INJECTION 10 ML IV ×2 (11:57→23:40)
[2024-11-07 12:22] LABS: TSH 3.26 uIU/ml (0.47-4.68)
[2024-11-07] MEDS: LASIX 40 MG IV (12:24)
--- NOTE | 2024-11-07 12:24 | PHA.VAN.IN ---
Assessment
- Assessment
Renal Function: Appears elevated from baseline
Maximum Temperature: 97.2
Minimum Temperature: 96.6
Concomitant Antimicrobials: Cefepime
Plan
- Plan
Initial / Loading Dose: Vanc 2000mg--administered 2/2 at 1002
Maintenance Regimen: PRN by level
Monitoring: R 2/3 with AM labs
Pharmacokinetics Vancomycin I
- -
Patient Age: 79
Patient Sex: Male
Vancomycin Day #: 1
Indication: Pulmonary/Respiratory
Requesting Provider: Alfredo
Height / Weight:
Height 5 ft 4 in
Actual Weight 83.5 kg
IBW in k.2
Adjusted BW in k.5
- Vital Signs / Lab Results
Temp Pulse Resp BP Pulse Ox
97.2 F 98 20 116/69 96
11/07/24 11:07 11/07/24 11:30 11/07/24 11:30 11/07/24 10:30 11/07/24 11:30
Lab Results - Hematology
11/07/24
05:45
WBC 12.1 H
Band Neutrophils 22 H
Lab Results - Chemistry
11/07/24 11/07/24
05:45 10:45
BUN 46 H 52 H
Creatinine 1.7 H 2.1 H
Estimated Creat Clear 29
Albumin 3.5
11/07/24 11/07/24
05:48 10:45
Lactic Acid 7.0 H* 3.3 H
Lab Results - Urine
11/07/24
10:44
Urine Nitrite (Reflex) Negative
Leukocyte Esterase Rfl Negative
Urine WBC (Reflex) 3-5
Ur Squamous Epith Cells 3-5
Urine Bacteria (Reflex) Few A
[2024-11-07 12:29] LABS: NT-proBNP 10400 pg/ml
[2024-11-07] MEDS: RESTASIS 0.05% OPHTHALMIC EMULSION 1 DROPS OPHTH ×2 (13:06→21:09)
[2024-11-07 13:39] LABS: Glucose - Point of Care 483 mg/dl (70-99)
[2024-11-07] MEDS: NOVOLIN R 10 UNITS IV (14:05)
[2024-11-07] MEDS: NOVOLIN R INSULIN INFUSION 100 IV ×2 (14:07→19:57)
[2024-11-07 14:16] LABS: Lactic Acid 2.1 mmol/L (0.7-2.0)
[2024-11-07 14:18] LABS: Glucose 464 mg/dl (70-99)
[2024-11-07] MEDS: TAMIFLU 30 MG TUBE ×2 (14:21→21:09)
[2024-11-07] MEDS: PLAVIX 75 MG TUBE (14:21)
[2024-11-07] MEDS: LOW STRENGTH ASPIRIN 81 MG TUBE (14:21)
[2024-11-07] MEDS: PACERONE 200 MG TUBE (14:21)
--- NOTE | 2024-11-07 15:05 | PTCARENOTE ---
pt arrived to ICU at 10:00 pt unresponsive on vent , on propofol gtt at 10mcg , no gag , no corneal reflexes , pt having questionable seizure activity pt having facial twitching , medicated with lorazepam as ordered by Dr Nichols , pt on Levophed
at 20mcg and epinephrine at 2mcg for goal of map of 65, pt had Ecco at bedside, pt had [place] sump inserted and placement check by XRAy , pt labs noted , his blood glucose has been elevated and he was started on glycemic protocol for glucose levels
of 483 , pt family at bedside , spoke to multiple physicians regarding plan of care and condition
[2024-11-07 15:19] LABS: Glucose - Point of Care 386 mg/dl (70-99)
[2024-11-07 16:16] LABS: Glucose - Point of Care 412 mg/dl (70-99)
--- NOTE | 2024-11-07 16:41 | PTCARENOTE ---
no change in neuro assessments , as per Dr Ballesteros keep pt on propofol as currently 10mcg , pt has had no further episodes of seizure like symptoms , pt now on glycemic protocol , multiple family members at bedside , updated by hospitalist
[2024-11-07 16:48] LABS: Glucose 389 mg/dl (70-99)
[2024-11-07] MEDS: HEPARIN 5000 UNITS SC ×2 (16:52→23:40)
[2024-11-07] MEDS: CRESTOR 40 MG TUBE (17:00)
[2024-11-07 17:17] LABS: Troponin I 0.161 ng/ml
[2024-11-07 17:20] LABS: Glucose - Point of Care 373 mg/dl (70-99)
--- NOTE | 2024-11-07 17:52 | W.PN.UPDATE ---
Update Note
Progress Note Update
Daughter requested short meeting with myself regarding neurology recommendations. Daughter is tearful, planning to discuss with other family members regarding goals of care.
Daughter is a physician and asked pointed questions regarding clinical status. I explained clinical status at length.
I discussed that although prognosis is poor given prolonged CPR, likely prolonged hypoxia and anoxic injury with multisystem organ failure, chronic comorbidities, age, it is not unreasonable to continue with current care for the next 24-48 hours and
reassess.
If there were to be another cardiac arrest, it is my opinion that further CPR would not be helpful in attaining prior functional status pre-admission. Daughter understands and will discuss continued care with full code versus DNR with other family
members
Echocardiogram also reviewed. EF 40%, improved from recent echo which revealed 30%
Normal RV size and function noted although it is a difficult study, atrial fibrillation. No significant valvular disease noted
PA pressure 45
Updated critical care nursing with regards to conversation as above
Cardiology and neurology input is appreciated
[2024-11-07 18:11] LABS: Glucose - Point of Care 364 mg/dl (70-99)
[2024-11-07 19:09] LABS: Glucose - Point of Care 330 mg/dl (70-99)
--- NOTE | 2024-11-07 20:13 | PTCARENOTE ---
Assumed care of pt. approx 1900.
Remains intubated/sedation weaned down for neuro exams.
Pt. is normocephalic, Pupils pinpoint/fixed, absent corneal/gag/cough. no response to triple flexion, or pain response in all extrem. Unarousable to deep sternal rub.
Sinus tach w.o ectopy noted, BP maintained w/ norepi/EPI.
Family bedside, all care explained, questions answered.
[2024-11-07 20:28] LABS: Glucose - Point of Care 297 mg/dl (70-99)
--- NOTE | 2024-11-07 20:54 | W.PN.ANS.LIN ---
Anesthesia IV & A-Line Note
- IV/Arterial Line
Right Radial Arrow 20 (12/07)
IV Line Comments: Uneventful Procedure
A-Line Comments: Sterile technique as per standard protocol, Uneventful procedure, Seldinger technique used, Ultrasound guided insertion, Biopatch applied
[2024-11-07 21:19] LABS: Glucose - Point of Care 204 mg/dl (70-99)
[2024-11-07 22:04] LABS: Lactic Acid 2.7 mmol/L (0.7-2.0)
[2024-11-07] MEDS: LEVOPHED 258 MG IV (22:16)
[2024-11-07 22:22] LABS: Glucose - Point of Care 207 mg/dl (70-99)
[2024-11-07] MEDS: PITRESSIN 100 IV (22:35)
--- NOTE | 2024-11-07 23:04 | PTCARENOTE ---
Addendum entered by Mario Vera RN 11/07/24 23:05:
Pt. still noted to have no neurological response to stimulation. GCS 3T, sedation turned off.
Original Note:
Norepi switched to double concentrated. Pt. noted to be tachycardic, epi turned off, vasopressin added. Art line placed, all titration metrics will be made from arterial access measurements.
[2024-11-07 23:12] LABS: Glucose - Point of Care 111 mg/dl (70-99)
[2024-11-07] MEDS: MAXIPIME 1000 MG IV (23:40)
--- NOTE | 2024-11-07 23:53 | PTCARENOTE ---
Pt. assessment largely unchanged.
GCS 3T upon neuro exam w/o sedation. No protective reflexes noted.
See vasopressor titration flowsheets for details.
[2024-11-08] VITALS (9 sets, daily range): BP systolic 81–121; BP diastolic 49–64; BMI 31.7
[2024-11-08 00:08] LABS: Glucose - Point of Care 79 mg/dl (70-99)
[2024-11-08] MEDS: DEXTROSE 50% SYRINGE 12.5 GRAMS IV (01:17)
[2024-11-08 01:26] LABS: Glucose - Point of Care 69 mg/dl (70-99)
[2024-11-08 01:40] LABS: Glucose - Point of Care 165 mg/dl (70-99)
[2024-11-08 02:20] LABS: Glucose - Point of Care 114 mg/dl (70-99)
[2024-11-08 03:18] LABS: Glucose - Point of Care 87 mg/dl (70-99)
--- NOTE | 2024-11-08 03:22 | PTCARENOTE ---
No change in pt. assessment.
[2024-11-08 04:11] LABS: B.E. -4.5 mmol/L; HCO3 20.2 mmol/L (21-28); O2 Saturation % 97.6 % (94-98); PCO2 35 mmHg (35-48); PO2 103 mmHg (83-108); pH 7.37 (7.35-7.45)
[2024-11-08 04:12] LABS: Glucose - Point of Care 79 mg/dl (70-99)
[2024-11-08 04:29] LABS: O2 Therapy VENT
[2024-11-08 04:43] LABS: Lactic Acid 1.6 mmol/L (0.7-2.0)
[2024-11-08 04:50] LABS: Blood Urea Nitrogen 58 mg/dl (9-20); Calcium 7.4 mg/dl (8.4-10.2); Carbon Dioxide 19 mmol/L (22-30); Chloride 96 mmol/L (98-107); Estimated Creatinine Clearance 23 ml/min; Glucose 79 mg/dl (70-99); Phosphorus 3.6 mg/dl (2.5-4.5); Potassium 4.8 mmol/L (3.5-5.1); Sodium 130 mmol/L (135-145); eGFR 24.63
[2024-11-08 04:54] LABS: Hematocrit 31.6 % (39.0-52.0); Hemoglobin 10.4 g/dL (13.0-18.0); Mean Corp Hgb Conc. 32.9 g/dL (33.0-37.0); Mean Corpuscular Hgb 26.4 pg (27.0-31.0); Mean Corpuscular Volume 80.2 fL (80.0-94.0); Mean Platelet Volume 11.4 fL (7.4-10.4); Platelet Count 95 10^3/uL (130-400); Red Blood Cell Count 3.94 10^6/uL (4.70-6.10); Red Cell Dist. Width 15.8 % (11.5-14.5); White Blood Cell Count 9.8 10^3/uL (4.8-10.8)
[2024-11-08 05:06] LABS: Vancomycin Random 19.9 ug/ml
[2024-11-08 05:37] LABS: Glucose - Point of Care 96 mg/dl (70-99)
[2024-11-08] MEDS: TYLENOL/FEVERALL 650 MG RECTAL (05:42)
[2024-11-08 06:15] LABS: Glucose - Point of Care 104 mg/dl (70-99)
[2024-11-08] MEDS: PITRESSIN 100 IV ×2 (06:37→17:04)
[2024-11-08 06:40] LABS: Troponin I 0.179 ng/ml
--- NOTE | 2024-11-08 06:59 | W.PN.HOSP.TC ---
Today's Communication/Plan
-
Continue with the pressure support medication, IV fluid, insulin protocol
Follow-up with ICU doctor and cardiology doctor recommendations
Follow-up with neurology recommendations
DVT and GI prophylaxis
Continue with IV antibiotics, Tamiflu
Repeat blood culture
Assessment / Plan
Assessment / Plan
Physical Exam
General: Intubated, not responsive
HEENT: Normocephalic, no corneal reflex, ET tube
Respiratory: Crackles
Cardiac: S1/S2, tachycardia
GI: Soft, Non Distended and Normal Bowel Sounds
Rectal: no bleeding
Genito-urinary: no hematuria
Musculoskeletal: No Clubbing, No Cyanosis and No Edema
Skin: Warm
Neuro: Other (unresponsive)
Psych, no agitation
Echo:
Normal left ventricular chamber size. Mildly reduced left ventricular systolic
function. Left ventricular ejection fraction is 40-45%. Abnormal septal
motion. The inferior and inferoseptal fritz are hypokinetic. Mild concentric
left ventricular hypertrophy. Stage II diastolic dysfunction suggestive of
abnormal relaxation and increased filling pressures.
Normal right ventricular size. Normal right ventricular systolic function.
Structurally normal mitral valve. Mitral valve opens normally. Mild mitral
regurgitation.
Trileaflet aortic valve. Aortic valve opens normally. Trivial aortic
regurgitation. Aortic valve sclerosis.
Mild tricuspid regurgitation. Estimated pulmonary artery pressure of 40-45
mmHg. Assuming a right atrial pressure of 8 mmHg.
Compared to last available study from [place] 03/2023 ejection fraction
previously was described at 30 to 35% now 40 to 45%. Previously right
ventricle was described as mildly dilated currently normal in size although not
well-seen.
A/P:
#. Cardiac Arrest - PEA, suspect hypoxic mediated which may be due to influenza/pneumonia versus CHF exacerbation. Inital ECG is unchanged from prior and paced. Trop 0.05. No complaints of CP.
- admit to icu
-Initial rhythm asystole and received epinephrine x 4 and CPR for about 20 minutes
- CT Head with mild anoxic injury. Neurology consulted
- Keep MAP > 65 for now with pressors
- light sedation to maintain oxygenation
- troponin 0.017 then peak at 0.18 then down to 0.179
- echo
- cardiology consulted.
-Discussed with several family members at bedside on 11/07 including heart failure specialist and physician who is his daughter and several other relatives in the room. While prognosis is guarded they would lie him to remain full code.
- follow neurology and ICU doctors recommendations
#Sepsis POA/ bacteremia
Septic shock with cardiogenic shock
Continue pressure support, IV fluid.
Blood culture is positive
c/w broad spectrum IV antibiotics.
repeat blood culture
#. Post cardiac acute hypoxic Respiratory failure - Patient likely in some CHF exacerbation with pulmonary edema. No significant peripheral edema so likely flashed, vs influenza ards with pneumonia.
- intubated, PEEP currently at 5 with sat of 100
- repeat blood gas 7.37/35/103/20.2
- Off sedation
- no h/o COPD or asthma.
- GI ppx
- Positive flu influenza A
- child care leader consulted and appreciated input
-On IV cefepime and vancomycin
-Continue mechanical ventilation
#Hyponatremia
#Hyperkalemia, resolved
#Acute kidney injury, suspect due to ongoing multiorgan failure following septic shock and cardiogenic shock
#. Influenza - Cannot rule out ARDS entirely or bacterial superimposed pneumonia
- continue Tamiflu
- blood cultures, urine cultures, sputum cultures
- broad spectrum abx Cefepime and Vancomycin for now
# Acute systolic heart Failure - Suspect cardiogenic pulmonary edema and possibly cardiogenic shock s/p PEA arrest.
- pressors to maintain map > 65
- attempt to diurese once stabilized more, given Lasix
- echo was done
- continue aspirin/Plavix
- holding GDMT including coreg, valsartan.
Follow-up with senior lead project manager recommendation
# CAD - no STEMI. Suspected myocardial injury. Complex cardiac history
- continue asa/plavix/statin. Cardiology consulted and pending evaluation
- holdin Imdur and ranexa for now
# History of paroxysmal AFIB
- s/p ppm aicd and watchman. Rate is controlled
- restart coreg as tolerated
-Will defer anticoagulation to cardiology
# DM II - initial hyperglycemia
- holding glizide/metformin.
On insulin drip/ICU protocol
# Anoxic encephalopathy. Seizures
Abnormal CT of the head
Possible seizure witnessed
Neurology consulted. Evaluation
DVT PPX - heparin sq
Code status - full code and prognosis guarded
Total time spent to see the patient, examine the patient, review data and lab results, discuss treatment plan with consultants and nursing staff around 55 minutes
Anticipated Discharge: > 48 hours
Subjective/Interval History
-
Date of Service: November 08, 2024
Unresponsive over night
Still on pressure support
Objective Data
-
Labs:
Laboratory Results
11/08/24
03:53
WBC 9.8
Hgb 10.4 L
Hct 31.6 L
Plt Count 95 L
HCO3 20.2 L
Sodium 130 L
Potassium 4.8
Chloride 96 L
Carbon Dioxide 19 L
BUN 58 H
Creatinine 2.6 H
Glucose 79
Calcium 7.4 L
Vital Signs:
Vital Signs
Temp Pulse Resp BP Pulse Ox
101.6 F H 83 22 93/54 96
11/08/24 05:30 11/08/24 06:15 11/08/24 06:15 11/07/24 20:45 11/08/24 06:00
I&O
11/06/24 11/07/24 11/08/24
06:59 06:59 06:59
Intake Total 2151.6 / 2151.6
Output Total 1005 / 1005
Balance 1146.6 / 1146.6
--- NOTE | 2024-11-08 08:00 | PTCARENOTE ---
Received pt with eyes closed.No response to tactile or noxious stimuli.Pupils non reactive 2mm.No corneal reflex noted bl.+ slight cough noted with suctioning via ETT.SR noted.Right IJ CVP intact with Vasopressin,Levophed and Insulin Glycemic
Protocol gtts.Right A Line intact and zeroed,maintained mid axillary.# 7.5 ETT to vent.Coarse breath sounds throughout.Suctioned for scant de [place] vega secretions.POX 98%Barron intact.No BM.Navas draining yellow urine.Pt's daughter who is a medical physician
at bedside.Plan of care discussed.
[2024-11-08 08:05] LABS: Glucose - Point of Care 90 mg/dl (70-99)
[2024-11-08] MEDS: TAMIFLU 30 MG TUBE (08:42)
[2024-11-08] MEDS: LOW STRENGTH ASPIRIN 81 MG TUBE (08:43)
[2024-11-08] MEDS: PACERONE 200 MG TUBE (08:43)
[2024-11-08] MEDS: RESTASIS 0.05% OPHTHALMIC EMULSION 1 DROPS OPHTH ×2 (08:43→19:43)
[2024-11-08] MEDS: MIRALAX 17 GRAMS TUBE (08:43)
[2024-11-08] MEDS: HEPARIN 5000 UNITS SC ×3 (08:43→23:59)
[2024-11-08] MEDS: LASIX 40 MG IV (08:43)
[2024-11-08] MEDS: NSS (PRESERVATIVE FREE) 10 ML IV (08:44)
[2024-11-08] MEDS: PROTONIX IV 40 MG IV (08:44)
--- NOTE | 2024-11-08 08:50 | W.PN.NEURO.1 ---
Today's Communication / Plan
-
Attempt to avoid sedation if possible
Neuro Assessment/Plan
Assessment
I. Multifactorial encephalopathy (toxic, hypoxic, vascular, infectious)
II. Anoxic encephalopathy
III. Influenza A
Poor prognosis for meaningful neurological recovery due to worsening CT of head results with increased evidence of expanding cytotoxic edema caudally as well as absence of significant improvement since onset of anoxic injury.
Most accurate neuro prognostication at 72 hours after onset of anoxic injury
Plan
Check EEG, completed
Attempt to avoid sedation if possible
Continue aspirin and clopidogrel
Goal of normotension
Goal of normoglycemia
Reviewed with patient's family regarding goals of care. Will follow
Subjective/Objective
Subjective Data
Date of Service: November 08, 2024
Patient unable to fight his own medical history
Objective Data
Vital Signs
Temp Pulse Resp BP Pulse Ox
38.7 C H 83 22 93/54 96
11/08/24 05:30 11/08/24 06:15 11/08/24 06:15 11/07/24 20:45 11/08/24 06:00
Lab Results
11/08/24 03:53
11/08/24 03:53
PT 18.4 Sec (11.4-14.6) H 11/07/24 10:45
INR 1.51 11/07/24 10:45
Sodium 130 mmol/L (135-145) L 11/08/24 03:53
Potassium 4.8 mmol/L (3.5-5.1) 11/08/24 03:53
BUN 58 mg/dl (9-20) H 11/08/24 03:53
Glucose 79 mg/dl (70-99) 11/08/24 03:53
Calcium 7.4 mg/dl (8.4-10.2) L 11/08/24 03:53
Phosphorus 3.6 mg/dl (2.5-4.5) 11/08/24 03:53
Swm-[id number]-Miypgqbhmmd Pept 52923 pg/ml 11/07/24 10:46
Patient Allergies
No Known Allergies Allergy (Verified 11/05/24 15:40)
Review of Systems
-
Unable to obtain full review of systems at this time due to: Patient Intubation and Lethargy
History Source: Patient
All other systems: Reviewed and negative
Physical Exam
-
General: No Apparent Distress, Intubated and Appears Stated Age
Eyes: Round OU and Mclaughlin Conjunctivae; Negative Able to visualize OU
HEENT: Anicteric and Moist Mucous Membranes
Neck: Full Range of Motion
Respiratory: No Dyspnea
Cardiac: No JVD
GI: Non-distended
Skin: Unremarkable
Extremities: No Clubbing, No Cyanosis and No Edema
Psych: Unable to Assess
Extended Neurological Exam
Mood & Affect: Unable to Assess
Attention Span & Concentration: Unresponsive to Verbal Stimuli and Unresponsive to Physical Stimuli; Negative Awake, Alert or Interactive
Memory: Unable to Assess
Involuntary Movement: None
Speech: Unable to Assess
Cranial Nerve II: Left Eye: Pupillary Reactivity Unremarkable, Pupillary Size Unremarkable and Unable to Assess Visual Card
Cranial Nerve II: Right Eye: Pupillary Reactivity Unremarkable, Pupillary Size Unremarkable and Unable to Assess Visual Card
Cranial Nerves III, IV, : Extraocular Movement: Absent Doll's Eyes and Unable to Assess (Ptosis)
Cranial Nerve V: Facial Sensation: Unable to Assess
Cranial Nerve VII: Facial Symmetry: Other (Incomplete eyelid closure after passive eye opening bilaterally)
Cranial Nerve VIII: Hearing: Unable to Assess
Cranial Nerves IX, X: Palate Movement: Unable to Assess
Cranial Nerve XI: Shoulder Shrug: Unable to Assess
Cranial Nerve XII: Tongue Protusion: Unable to Assess
Muscle Strength, Overall: Negative Spontaneously Moves
Muscle Bulk & Tone: Bulk Unremarkable and Tone Unremarkable
Pronator Drift: Unable to Assess
Deep Tendon Reflexes: Trace Throughout
Cold Sensation: Unable to Assess
Vibration Sensation: Unable to Assess
Touch Sensation: Negative Withdrawal to Pain
Coordination: Unable to Assess
Babinski Sign: Absent Bilaterally
Gait & Station: Unable to Assess
Data Reviewed
-
CT Head: Report Reviewed and Image Reviewed
Labs: Report Reviewed
Reviewed with: Physician, Nurse and Family
Old Records: Summarized
Past History
Past History
ED Past Medical History: CAD, HTN, Hypercholesterolemia and NIDDM
ED Past Surgical History: Cardiac (CABG)
Social History
Tobacco: Former smoker
Personal:
Family History
Family History: CAD
Medications
-
Medications:
Generic Name Dose Route Start Last Admin
Trade Name Freq PRN Reason Stop Dose Admin
Acetaminophen 650 mg 11/07/24 09:19 11/08/24 05:42
Acetaminophen 650 Mg Rectal Suppository RECTAL 12/05/24 09:18 650 mg
Q6HPRN PRN Administration
temp > 101.5
Amiodarone HCl 200 mg 11/07/24 09:19 11/07/24 14:21
Amiodarone 200 Mg Tablet TUBE 12/05/24 09:18 200 mg
DAILY JOHNATHAN Administration
Aspirin 81 mg 11/07/24 08:00 11/07/24 14:21
Aspirin 81 Mg Chewable Tablet TUBE 12/05/24 07:59 81 mg
DAILY JOHNATHAN Administration
Cefepime HCl 1,000 mg 11/08/24 00:00 11/07/24 23:40
Cefepime Hcl 1,000 Mg/11.3 Ml Vial IV 1,000 mg
Q12H JOHNATHAN Administration
Clopidogrel Bisulfate 75 mg 11/07/24 12:00 11/07/24 14:21
Clopidogrel 75 Mg Tablet TUBE 12/05/24 11:59 75 mg
NOON JOHNATHAN Administration
Cyclosporine 1 drops 11/07/24 09:19 11/07/24 21:09
Cyclosporine 0.05% (Ophthalmic Emulsion) 10 Drop Droperette OPHTH 12/05/24 09:18 1 drops
BID JOHNATHAN Administration
Dextrose 12.5 grams 11/07/24 13:36 11/08/24 01:17
Dextrose 50% (0.5 Grams/Ml) 50 Ml Syringe IV 12/05/24 13:35 12.5 grams
[id number] PRN Administration
BLOOD GLUCOSE < 70
Fentanyl Citrate 50 mcg 11/07/24 08:08
Fentanyl (50 Mcg/Ml) 100 Mcg/2 Ml Ampul IV 11/21/24 08:07
[id number] PRN
see protocol
Protocol
Furosemide 40 mg 11/08/24 08:00
Furosemide 40 Mg (10 Mg/Ml) 4 Ml Vial IV 12/06/24 07:59
DAILY JOHNATHAN
Guaifenesin/Dextromethorphan 5 ml 11/07/24 09:19
Guaifenesin/Dextromethorphan 200 Mg/10 Ml Cup TUBE 12/05/24 09:18
Q6HPRN PRN
cough
Heparin Sodium 5,000 units 11/07/24 09:19 11/07/24 23:40
Heparin 5,000 Units/Ml 1 Ml Vial SC 12/05/24 09:18 5,000 units
Q8 JOHNATHAN Administration
Propofol 1,000,000 mcg in 100 mls @ 0 mls/hr 11/07/24 08:08 11/07/24 08:15
Diprivan IV 100 mls
PER PROTOCOL JOHNATHAN Administration
Protocol
Per Protocol
Epinephrine HCl 4 mg in 250 mls @ 0 mls/hr 11/07/24 08:08 11/07/24 08:43
Adrenalin IV 250 mls
PER PROTOCOL JOHNATHAN Administration
Protocol
Per Protocol
Vancomycin HCl 1 each/ Device 0 mls @ 0 mls/hr 11/07/24 09:19
IV
PER PROTOCOL JOHNATHAN
Protocol
As Directed
Insulin Human Regular 100 units in 100 mls @ 0 mls/hr 11/07/24 13:45 11/07/24 19:57
Novolin R Insulin Infusion IV 100 mls
PER PROTOCOL JOHNATHAN Administration
Protocol
Per Protocol
Norepinephrine Bitartrate 8 mg 258 mls @ 0 mls/hr 11/07/24 21:15 11/07/24 22:16
/ Sodium Chloride IV 258 mls
PER PROTOCOL JOHNATHAN Administration
Protocol
Per Protocol
Vasopressin 20 units in 100 mls @ 0 mls/hr 11/07/24 21:15 11/08/24 06:37
Pitressin IV 100 mls
PER PROTOCOL JOHNATHAN Administration
Protocol
Per Protocol
Phenylephrine HCl 50 mg in 250 mls @ 0 mls/hr 11/07/24 21:30
Bonilla-Synephrine IV
PER PROTOCOL JOHNATHAN
Protocol
Per Protocol
Insulin Aspart 0 units 11/07/24 16:30 11/08/24 08:42
Insulin Aspart (100 Units/Ml) 3 Ml Flexpen SC 12/05/24 16:29 Not Given
AC JOHNATHAN
Protocol
Lorazepam 2 mg 11/07/24 11:51 11/07/24 11:56
Lorazepam 2 Mg/Ml Vial IV 12/05/24 11:50 2 mg
Q4HPRN PRN Administration
seizure
Oseltamivir Phosphate 30 mg 11/07/24 12:15 11/07/24 21:09
Oseltamivir (Tamiflu) 6 Mg/Ml In Oral Syringe TUBE 11/11/24 20:01 30 mg
BID JOHNATHAN Administration
Pantoprazole Sodium 40 mg 11/07/24 09:19 11/07/24 11:56
Pantoprazole Sodium 40 Mg/10 Ml Vial IV 12/05/24 09:18 40 mg
DAILY JOHNATHAN Administration
Polyethylene Glycol 17 grams 11/08/24 08:00
Polyethylene Glycol Powder 17 Grams Packet TUBE 12/06/24 07:59
DAILY JOHNATHAN
Rosuvastatin Calcium 40 mg 11/07/24 18:00 11/07/24 17:00
Rosuvastatin (Crestor) 40 Mg Tablet TUBE 12/05/24 17:59 40 mg
QPM JOHNATHAN Administration
Sodium Chloride 0 flush 11/07/24 11:00
Sodium Chloride 0.9% (Flush) Syringe IV 12/05/24 10:59
PER PROTOCOL JOHNATHAN
Sodium Chloride 10 ml 11/07/24 12:00 11/07/24 11:56
Sodium Chloride 0.9% (Preservative Free) 10 Ml Vial IV 12/05/24 11:59 10 ml
DAILY JOHNATHAN Administration
Sodium Chloride 1 ml 11/07/24 12:09
Nss (Pf) 10 Ml Vial For Ativan 2 Mg Dose IV 12/05/24 12:08
Q4HPRN PRN
IV LORAZEPAM DILUTION
Sterile Water 10 ml 11/08/24 00:00 11/07/24 23:40
Sterile Water For Injection 10 Ml Vial IV 12/06/24 00:00 10 ml
Q12H JOHNATHAN Administration
[2024-11-08 09:07] LABS: Glucose - Point of Care 91 mg/dl (70-99)
--- NOTE | 2024-11-08 09:17 | W.PN.CARDCBS ---
Today's Communication / Plan
-
Continue supportive care
Prognosis very guarded
Impression / Plan
-
Impression:
Respiratory PEA arrest in the setting of influenza
Vent dependent respiratory failure with bilateral infiltrates pneumonia, heart failure, possibly ARDS
Anoxic encephalopathy
Influenza diagnosed 11/05/2024 on Tamiflu
Multisystem organ failure
Shock with lactic acidosis
Acute heart failure with reduced ejection
Coronary artery disease status post CABG x 3 (1989, 1989 and 1999) with multiple stents in the past
Most recent intervention 07/02/2022 treatment of in-stent stenosis of ostial circumflex with shockwave ([facility])
Atrial fibrillation
ICD with prior pacemaker
Chronic kidney disease
Sleep apnea
Diabetes mellitus
Hyperlipidemia
GERD
Fatty liver
CT scan of the headwith mild acute hypoxic ischemic encephalopathy and severe atherosclerotic plaque intracranial internal carotid arteries
Echocardiogram 11/07/2024: Normal LV size with left ventricular ejection fraction 40 to 45%. Abnormal septal motion. Inferior and inferoseptal wall hypokinesis. Mild LVH. Normal RV size and function although RV not well-seen. Trivial AI with
aortic valve sclerosis. Mild TR with PA pressure 40 to 45 mmHg. Mild MR
Transthoracic echo 03/10/2023: Left ventricular ejection fraction 30 to 35% with mild LVH. RV mildly dilated with mildly reduced systolic function. Mild to moderate MR. Mild TR.
Left heart catheterization 07/02/2022: Patent SVG grafts to mid and distal LAD and OM. Known occlusion proximal RCA faintly collateralized. In-stent restenosis ostial circumflex treated with shockwave 3 x 12 mm for multiple inflations then
postdilated with 3.5 x 12 mm NC balloon.
Right heart catheterization 08/27/2022: RA 13 PA 59/23 mean 38 PCW 22 cardiac output 3.28 cardiac index 1.74 SVR 1388 PVR 3 Avalos units
Plan:
Patient presents with respiratory/PEA arrest in the setting of influenza. Possible 20-minute downtime. Chest x-ray also consistent with severe pulmonary edema. History of moderate cardiomyopathy with heart failure with reduced ejection fraction,
coronary artery disease, paroxysmal atrial fibrillation on amiodarone and ICD.
Patient now roughly 24 hours status post PEA arrest with multisystem organ failure and likely anoxic encephalopathy.
Currently on multiple pressors, blood pressure is adequate
Creatinine has risen from 1.6-2.6 24 hours, he is hyponatremic. Nephrology not yet consulted.
Level of care will ultimately depend on neurologic status over the next 24 to 48 hours. Neurology consult pending.
From cardiac standpoint, continue supportive care. EF by echo was 40 to 45%. Ultimately, he will require diuresis, but given GLEN will hold off for now.
Prognosis very guarded
Progress Note - House Repairer
Subjective
Date of Service: November 08, 2024:
Complex 79-year-old man recently diagnosed with influenza A and seen emergency department, developed progressive dyspnea on exertion and during EMS transport to the hospital had a PEA arrest ultimately with ROSC, but now on ventilator with evidence
of anoxic encephalopathy
Patient currently getting EEG. Daughter at bedside, who is a [place] primary care physician
PMH: CABG, possibly 1989 and 1999 multiple PCI's, atrial fibrillation status post watchman, ischemic cardiomyopathy, ICD, diabetes, hyperlipidemia, presumed hypertension, sleep apnea, CPAP, bariatric surgery
Current meds: Propofol, epinephrine, norepinephrine, vasopressin, clopidogrel, rosuvastatin, amiodarone 200 a day, aspirin 81 mg a day, IV vancomycin, subcu heparin, Tamiflu furosemide 40 IV daily, insulin infusion, cefepime and, Bonilla-Synephrine
93/54, pulse 83, weight 83.7 kg, was 80 kg on admission, temp is 38.8 weight is 83.7 kg, was 80 kg on admission, eyes taped, ventilator, getting EEG, lungs are relatively clear, regular rate and rhythm, abdomen benign, extremities 1+ edema, neuro
unresponsive, did not test for withdrawal to pain, etc. as family at bedside
CT scan: Anoxic encephalopathy
ECG: AV paced:
Platelets 95, hemoglobin 10.4, white count 9.8, BUN and creatinine 58 and 2.6, bicarb 19, anion gap 15, sodium 130, creatinine was 1.6 on admission, peak troponin 0.18, proBNP 10,400
Objective
Labs:
11/08/24 03:53
11/08/24 03:53
Labs
Hgb 10.4 g/dL (13.0-18.0) L 11/08/24 03:53
Hct 31.6 % (39.0-52.0) L 11/08/24 03:53
Plt Count 95 10^3/uL (130-400) L 11/08/24 03:53
PT 18.4 Sec (11.4-14.6) H 11/07/24 10:45
INR 1.51 11/07/24 10:45
Sodium 130 mmol/L (135-145) L 11/08/24 03:53
Potassium 4.8 mmol/L (3.5-5.1) 11/08/24 03:53
BUN 58 mg/dl (9-20) H 11/08/24 03:53
Creatinine 2.6 mg/dL (0.7-1.3) H 11/08/24 03:53
Glucose 79 mg/dl (70-99) 11/08/24 03:53
Troponins
11/07/24 11/07/24 11/07/24
05:45 10:46 16:16
Troponin I 0.051 H* 0.156 H* D 0.161 H*
11/07/24 11/08/24
22:57 05:31
Troponin I 0.180 H* 0.179 H*
Vital Signs and I&O:
Vital Signs
Temp Pulse Resp BP Pulse Ox
38.8 C H 83 22 93/54 98
11/08/24 07:05 11/08/24 06:15 11/08/24 06:15 11/07/24 20:45 11/08/24 08:59
Vital Signs
Temp Pulse Resp BP Pulse Ox
38.8 C H 83 22 93/54 98
11/08/24 07:05 11/08/24 06:15 11/08/24 06:15 11/07/24 20:45 11/08/24 08:59
Intake & Output
11/06/24 11/07/24 11/08/24 11/09/24
07:59 07:59 07:59 07:59
Intake Total 2151.6 / 2151.6
Output Total 1005 / 1005
Balance 1146.6 / 1146.6
Physical Exam
Physical Exam
See above
[2024-11-08 09:57] LABS: Glucose - Point of Care 86 mg/dl (70-99)
[2024-11-08 10:36] LABS: Glycohemoglobin (HgbA1c) 7.9 % (4.0-5.6)
[2024-11-08] MEDS: LEVOPHED 258 MG IV ×2 (10:40→21:04)
[2024-11-08 10:56] LABS: Glucose - Point of Care 115 mg/dl (70-99)
[2024-11-08] MEDS: MAXIPIME 1000 MG IV (11:22)
[2024-11-08] MEDS: STERILE WATER FOR INJECTION 10 ML IV (11:23)
[2024-11-08] MEDS: PLAVIX 75 MG TUBE (11:23)
--- NOTE | 2024-11-08 11:37 | CM ---
CM following re: discharge planning.
Discussed in Rounds, reviewed pt's chart, met with pt and daughter at bedside.
Pt is a 79 year old male, admitted with primary dx of s/p Cardiac Arrest - PEA. Per Rounds meeting, pt intubated yesterday, remains intubated, on mechanical ventilation, continue supportive care, prognosis guarded, [facility] [employer] RN following.
Per daughter who is a physician, pt lives wit son 2SH, 2 steps too enter, has 5 supportive children. 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 No DME, VN or SNF history.
Pharmacy: [facility].
D/C plan: uncertain at this time and will depend on pt's progress.
CM will follow with discharge plan updates as hospitalization progresses
--- NOTE | 2024-11-08 11:51 | PHA.VAN.FU ---
Vancomycin Assessment / Plan
- Assessment
Renal Function: SCR Increasing (1.7->2.1->2.6)
WBC's are: Trending Down
In the past 24 hrs, patient has been: Febrile (101.8 11/08/23 07:05)
Concomitant Antimicrobials: tamiflu, cefepime
- Assessment - Therapeutic Drug Monitoring
Random Level: 19.9 after 2 gm vancomycin 11/07/24 10:02
- Dosing Plan
Continue: dose by random level
Dosing by Level: Hold off on dosing today
- Monitoring Plan
Random Level: repeat random level AM 11/09/24
- Follow Up
Pharmacy will continue to follow.
Vancomycin Follow UP
- -
Patient Age: 79
Patient Sex: Male
Vancomycin Day #: 1
Indication: Pulmonary/Respiratory
Requesting Provider: Aflredo
Height / Weight:
Height 5 ft 4 in
Actual Weight 83.7 kg
IBW in k.2
Adjusted BW in k.5
Pertinent Past Medical History: extensive cardiac history; influenza positive
- Vital Signs / Lab Results
Temp Pulse Resp BP Pulse Ox
101.8 F H 80 21 93/54 98
11/08/24 07:05 11/08/24 11:45 11/08/24 11:45 11/07/24 20:45 11/08/24 08:59
Lab Results - Hematology
11/07/24 11/08/24
05:45 03:53
WBC 12.1 H 9.8
Band Neutrophils 22 H
Lab Results - Chemistry
11/07/24 11/07/24 11/08/24
05:45 10:45 03:53
BUN 46 H 52 H 58 H
Creatinine 1.7 H 2.1 H 2.6 H
Estimated Creat Clear 29 23
Albumin 3.5
11/07/24 11/07/24 11/07/24
05:48 10:45 13:45
Lactic Acid 7.0 H* 3.3 H 2.1 H
11/07/24 11/07/24 11/08/24
16:16 21:23 03:53
Lactic Acid 4.0 H* 2.7 H 1.6
Lab Results - Urine
11/07/24
10:44
Ur Squamous Epith Cells 3-5
Microbiology Results
11/07/24 10:45 Respiratory Culture - Preliminary
Endotracheal Streptococcus pneumoniae
Gram Stain - Preliminary
11/07/24 06:11 Blood Culture - Preliminary
Blood/Venous Positive culture in progress
Gram Stain - Final
11/07/24 06:08 Blood Culture - Preliminary
Blood/Venous Positive culture in progress
Gram Stain - Final
Therapeutic Drug Monitoring
Random Vancomycin 19.9 ug/ml 11/08/24 03:53
--- NOTE | 2024-11-08 12:04 | W.PN.INTV ---
Today's Communication / Plan
Recommendations
DC cefepime
Start ceftriaxone
Continue vancomycin
Follow final culture results
Continue mechanical ventilation without change
Remains off sedation
Follow renal function
May need to hold Lasix for tomorrow
Continue with neuro checks
NPO
Assessment
-
79-year-old male with history of coronary disease with stents, bypass surgery x 2, diabetes, sleep apnea, pulm hypertension, recently diagnosed influenza A 11/05 started on Tamiflu. Presents in respiratory failure, status post cardiac arrest en
route (initial rhythm asystole), epinephrine x 4, CPR for 20 minutes, intubated en route, found to have bilateral infiltrates, hypotension requiring epinephrine, norepinephrine, admitted to ICU
VDRF, intubated in the field 11/07/2024
Cardiac arrest, asystole in the field
CPR x 20 minutes, epinephrine x 4, ROSC
Bilateral infiltrates
pneumonia vs CHF
Acute influenza A, diagnosed 11/05/2024
On Tamiflu
Severe metabolic acidemia
elevated lactate
Questionable seizure activity
Twitching of the frontotemporal muscle
Anemia
Leukocytosis
Hyponatremia
Mildly elevated troponin
Hyperglycemia
Conditions present prior to admission
Coronary disease with CABG x 3, last 1999
Multiple stents, 5, yearly catheterization at [facility], last stent 2022?
Ischemic cardiomyopathy, EF 30%
Recent echo 11/03/2024, EF 30%
Severe pulm hypertension, PA pressure 58, reduced RV function and enlarged size
ICD
Chronic atrial fibrillation, status post Watchman
Did not tolerate Eliquis due to tongue bleeding, ecchymoses
On amiodarone
Hypertension/hyperlipidemia
Ruv-zjrarpt-qqrlquswf diabetes
CKD stage IV
History of gastric banding in the past
Chronic back pain, sciatica
Progressive deconditioning over the past 6 months, per family
Plan/recommendations
Remains critically ill-unresponsive. On mechanical ventilation. On pressors.
Multisystem organ dysfunction, downtime at least 20 minutes
Questionable seizure activity versus myoclonus at the bedside on admission.
-
Shock: Possibly septic and cardiogenic.
Vasopressor requirements improved
Currently only on vasopressin, will attempt to wean off.
Lactic acid has cleared as of 11/08/2024
-
Acute kidney injury likely ischemic event-on chronic kidney disease. Baseline creatinine around 1.7.
Navas in place-poor urinary output
Follow electrolytes
Continue hemodynamic support
-
Pneumonia suspected: Bilateral infiltrates on x-ray
Streptococcus pneumonia in the sputum
Influenza A positive
Positive blood culture with gram-positive Cocci in pairs-likely Streptococcus pneumonia
Will transition to ceftriaxone
MRSA screening pending
Continue vancomycin for now
Tamiflu
-
Continue mechanical ventilation without change.
Continue with volume-cycled ventilation
Respiratory mechanics acceptable.
FiO2 40%
ABG 7.37/35/103-adequate oxygenation and ventilation
-
Remains off sedation since 9 PM to 11/25/2024
Unresponsive
Minimal respiratory effort
Minimal cough effort
No response to pain.
-
Anoxic brain injury
Repeat CT of the brain 11/08/2024 reviewed: Showed worsening anoxic ischemic injury pattern.
Neurology following the patient-prognosis of recovery is poor.
EEG today
Was Not optimal candidate for TTM protocol given multiple comorbidities, hypotension, questionable seizure activity
-
Troponin mildly elevated
Suspect event may be secondary to respiratory event, bilateral pneumonia?
Ischemic cardiomyopathy known, recent echo 11/03 reviewed
EF 30%, PA pressure 58
Patient with severe chronic cardiac disease, gets yearly catheterization per family, primary followed at [facility]
Cardiology following
Echocardiogram: 11/07/2024-normal ventricular chamber size. LVEF 40 to 45%. Abnormal septal motion. Inferior and inferior septal wall hypokinetic. Mild LVH. Stage II diastolic dysfunction. Normal right ventricular size. Mild MR. Estimated
pulmonary pressure 45 to millimeters of mercury.
Remains on amiodarone therapy. Patient on aspirin and Plavix as outpatient
Will defer anticoagulation to cardiology
Cardiology following the patient
proBNP is 10,000
On daily IV Lasix, may need to hold depending on hemodynamics.
-
Maintain-Place Navas catheter. Follow I's and O's
Hyperglycemia: Insulin drip started. Maintain levels are 1 40-1 80.
DVT prophylaxis: Mechanical prophylaxis for now, pharmacological prophylaxis subcutaneous heparin every 8hr
GI prophylaxis: Protonix
N.p.o.
Head of the bed elevation
Reviewed with critical care nursing, respiratory care, briefly with cardiology, primary service
Dr. Tello updated- Daughter at the bedside on 11/08/2024, understand poor prognosis of recovery
Critical care statement: A total of 43 minutes of critical care time was provided for this patient today. This includes management of unstable vital signs, evaluation of the patient at bedside, reviewing the patient's pertinent medical records
including ventilator settings, arterial blood gases, radiographs, microbiology, laboratory evaluations and discussion with primary team, critical care nursing, and respiratory therapy.
Data
Echo 03/10/2023 entheses [facility]): EF 30%, RV mildly dilated, mildly reduced RV function, moderate MR
08/27/2022: Known occlusion of RCA, patent SVG grafts, no restenosis of the ostial circumflex stent
Subjective Dataa
Subjective Data
Date of Service:
Date of Service: November 08, 2024
Chief Complaint: Transmitter Engineer In Charge Follow Up (Acute respiratory failure requiring mechanical ventilation/cardiorespiratory arrest)
Subjective:
Critically ill
Intubated, unresponsive.
Review of Systems
General: Unobtainable - Pat Unresp
Objective Data
Data Reviewed
Vital Signs / I&O / Oxygen:
Vital Signs
Temp Pulse Resp BP Pulse Ox
101.8 F H 80 21 93/54 98
11/08/24 07:05 11/08/24 11:45 11/08/24 11:45 11/07/24 20:45 11/08/24 11:54
Intake and Output
11/07/24 11/08/24 11/09/24
06:59 06:59 06:59
Intake Total 2151.6 / 2177.4 124.0 / 124.0
Output Total 1005 / 1005 60 / 60
Balance 1146.6 / 1172.4 64.0 / 64.0
SaO2 [A/C] 97
SaO2 98
Physical Exam
General: Comfortable
HEENT: Normocephalic
Cardiovascular: S1-S2
Respiratory: Non-Labored Respirations and ET Tube (No significant secretion)
GI: Soft and Non Distended
Neurology: Other (Comatose, pupils sluggish and small, minimal cough effort to suction, no response to pain. Minimal respiratory effort.)
Skin: Warm
Labs/Micro/Reports
Lab Data
11/08/24 03:53
11/08/24 03:53
Laboratory Results
11/08/24
03:53
pH 7.37
pCO2 35
pO2 103
HCO3 20.2 L
O2 Delivery Level Vent
Microbiology
11/07/24 10:45 Endotracheal Respiratory Culture - Preliminary
Streptococcus pneumoniae
11/07/24 10:45 Endotracheal Gram Stain - Preliminary
11/07/24 06:11 Blood/Venous Blood Culture - Preliminary
Positive culture in progress
11/07/24 06:11 Blood/Venous Gram Stain - Final
11/07/24 06:08 Blood/Venous Blood Culture - Preliminary
Positive culture in progress
11/07/24 06:08 Blood/Venous Gram Stain - Final
[2024-11-08 12:13] LABS: Glucose - Point of Care 123 mg/dl (70-99)
--- NOTE | 2024-11-08 12:50 | PTCARENOTE ---
Pt assessed.No change in assessment noted.CT head completed as ordered.Pt's ,sons and daughter at bedside.Oseas Suarez and Omer at bedside.
[2024-11-08] MEDS: NOVOLIN R INSULIN INFUSION 100 IV (13:27)
[2024-11-08 13:43] LABS: Glucose - Point of Care 130 mg/dl (70-99)
[2024-11-08] MEDS: REFRESH CELLUVISC GEL 1 DROPS OPHTH ×2 (14:10→21:41)
[2024-11-08] MEDS: ROCEPHIN 2000 MG IV (14:10)
[2024-11-08] MEDS: STERILE WATER FOR INJECTION 20 ML IV (14:10)
[2024-11-08 15:35] LABS: Glucose - Point of Care 103 mg/dl (70-99)
--- NOTE | 2024-11-08 16:27 | PTCARENOTE ---
Pt assessed.No change in assessment noted.
[2024-11-08] MEDS: NSS 1000 IV (16:52)
[2024-11-08] MEDS: CRESTOR 40 MG TUBE (17:04)
[2024-11-08 17:21] LABS: Glucose - Point of Care 100 mg/dl (70-99)
--- NOTE | 2024-11-08 17:28 | PTCARENOTE ---
PM care completed.
[2024-11-08 17:39] LABS: Blood Urea Nitrogen 69 mg/dl (9-20); Carbon Dioxide 19 mmol/L (22-30); Chloride 96 mmol/L (98-107); Estimated Creatinine Clearance 22 ml/min; Glucose 97 mg/dl (70-99); Potassium 4.7 mmol/L (3.5-5.1); Sodium 130 mmol/L (135-145); eGFR 22.53
[2024-11-08 19:53] LABS: Glucose - Point of Care 89 mg/dl (70-99)
--- NOTE | 2024-11-08 20:00 | PTCARENOTE ---
Patient received in bed unresponsive to noxious stimuli. Pupils 1 mm non reactive, no corneal reflex, weak cough and weak gag noted with suctioning. NSR on monitor, blood pressure as documented. + anansarca noted. Extremities cool. # 7.5 ETT at
23 cm at lip,tolerating AC 20 TV 450 FIO2 40% Peep 5, lungs coarse, copious amount of oral secretions. Hobbs sump in right nare to LIS. Abdomen round hypoactive bowel sounds. Temp sensing [place] draining yellow urine. RIJ TLC with Insulin,
Levophed and Vasopressin gtts infusing as documented. Left upper arm midline with IVF infusing as ordered. Family at bedside.
[2024-11-08 20:44] LABS: Glucose - Point of Care 94 mg/dl (70-99)
[2024-11-08 21:41] LABS: Glucose - Point of Care 74 mg/dl (70-99)
[2024-11-08 22:43] LABS: Glucose - Point of Care 104 mg/dl (70-99)
--- NOTE | 2024-11-08 23:47 | PTCARENOTE ---
Patient reassessed, GCS remains 3. GOL updated. Insulin gtt off. Turned and repositioned. No changes in assessment
[2024-11-08 23:53] LABS: Glucose - Point of Care 116 mg/dl (70-99)
[2024-11-09] VITALS (39 sets, daily range): BP systolic 65–102; BP diastolic 35–81; BMI 31.4
[2024-11-09 02:09] LABS: Glucose - Point of Care 160 mg/dl (70-99)
[2024-11-09] MEDS: NSS 1000 IV (02:18)
[2024-11-09] MEDS: PITRESSIN 100 IV ×3 (03:38→19:37)
[2024-11-09 04:14] LABS: Glucose - Point of Care 161 mg/dl (70-99)
[2024-11-09] MEDS: LEVOPHED 258 MG IV ×3 (04:36→16:07)
[2024-11-09 04:53] LABS: ALT (SGPT) 76 U/L (0-50); AST (SGOT) 281 U/L (17-59); Albumin 2.8 g/dl (3.5-5.0); Alkaline Phosphatase 123 U/L (38-126); Blood Urea Nitrogen 75 mg/dl (9-20); Calcium 6.7 mg/dl (8.4-10.2); Carbon Dioxide 12 mmol/L (22-30); Chloride 100 mmol/L (98-107); Estimated Creatinine Clearance 18 ml/min; Glucose 180 mg/dl (70-99); Sodium 133 mmol/L (135-145); Total Bilirubin 1.8 mg/dl (0.2-1.3); Total Protein 5.7 g/dl (6.3-8.2); eGFR 17.85
[2024-11-09 04:56] LABS: Hematocrit 25.8 % (39.0-52.0); Hemoglobin 8.6 g/dL (13.0-18.0); Mean Corp Hgb Conc. 33.3 g/dL (33.0-37.0); Mean Corpuscular Hgb 26.6 pg (27.0-31.0); Mean Corpuscular Volume 79.9 fL (80.0-94.0); Mean Platelet Volume 12.6 fL (7.4-10.4); Platelet Count 76 10^3/uL (130-400); Red Blood Cell Count 3.23 10^6/uL (4.70-6.10); Red Cell Dist. Width 16.1 % (11.5-14.5); White Blood Cell Count 12.4 10^3/uL (4.8-10.8)
--- NOTE | 2024-11-09 04:56 | SUR.OPER ---
No changes in assessment. CHG bath given. Vasopressors titrated as documented. turned and repositioned.
[2024-11-09] MEDS: SODIUM BICARBONATE 1150 MEQ IV ×2 (06:01→22:33)
[2024-11-09] MEDS: CALCIUM GLUCONATE 290 MG IV (06:03)
[2024-11-09 06:12] LABS: Glucose - Point of Care 166 mg/dl (70-99)
--- NOTE | 2024-11-09 07:04 | W.PN.HOSP.TC ---
Today's Communication/Plan
-
Follow-up with ICU/cardiology/neurology recommendations
Worsening renal function overnight with metabolic acidosis
Continue antibiotic, high-dose Rocephin/renally adjusted dose of Tamiflu
No neurologic improvement overnight
Assessment / Plan
Assessment / Plan
Physical Exam
General: Intubated, not responsive
HEENT: Normocephalic, no corneal reflex, ET tube
Respiratory: Crackles
Cardiac: S1/S2, tachycardia
GI: Soft, Non Distended and Normal Bowel Sounds
Rectal: no bleeding
Genito-urinary: no hematuria
Musculoskeletal: No Clubbing, No Cyanosis and No Edema
Skin: Warm
Neuro: Other (unresponsive)
Psych, no agitation
Echo:
Normal left ventricular chamber size. Mildly reduced left ventricular systolic
function. Left ventricular ejection fraction is 40-45%. Abnormal septal
motion. The inferior and inferoseptal fritz are hypokinetic. Mild concentric
left ventricular hypertrophy. Stage II diastolic dysfunction suggestive of
abnormal relaxation and increased filling pressures.
Normal right ventricular size. Normal right ventricular systolic function.
Structurally normal mitral valve. Mitral valve opens normally. Mild mitral
regurgitation.
Trileaflet aortic valve. Aortic valve opens normally. Trivial aortic
regurgitation. Aortic valve sclerosis.
Mild tricuspid regurgitation. Estimated pulmonary artery pressure of 40-45
mmHg. Assuming a right atrial pressure of 8 mmHg.
Compared to last available study from [facility] 03/2023 ejection fraction
previously was described at 30 to 35% now 40 to 45%. Previously right
ventricle was described as mildly dilated currently normal in size although not
well-seen.
A/P:
#. Cardiac Arrest - PEA, suspect hypoxic mediated which may be due to influenza/pneumonia versus CHF exacerbation. Inital ECG is unchanged from prior and paced. Trop 0.05. No complaints of CP.
- admit to icu
-Initial rhythm asystole and received epinephrine x 4 and CPR for about 20 minutes
- CT Head with mild anoxic injury. Neurology consulted
CT head 2/3 findings compatible with global hypoxic/ischemic encephalopathy, with progression of findings since CT of November 07, 2024.
- Keep MAP > 65 for now with pressors
- light sedation to maintain oxygenation
- troponin 0.017 then peak at 0.18 then down to 0.179
- echo resulted
- follow neurology and ICU doctors recommendations
# Septic PNEUMONIA/bacteremia/sepsis. Patient tested positive for bacterial and viral infection at the same time
#Sepsis POA/ bacteremia
Septic shock with cardiogenic shock
Continue pressure support, IV fluid.
Repeat blood culture 2/3 is pending
c/w broad spectrum IV antibiotics.
repeat blood culture
#. Post cardiac acute hypoxic Respiratory failure - Patient likely in some CHF exacerbation with pulmonary edema. No significant peripheral edema so likely flashed, vs influenza ards with pneumonia.
- intubated, PEEP currently at 5 with sat of 100
- repeat blood gas 7.37/35/103/20.2
- Off sedation
- no h/o COPD or asthma.
- GI ppx
- Positive flu influenza A
- wildland fire fighter specialist consulted and appreciated input
-On IV Rocephin now, high dose.
-Continue mechanical ventilation
#Hyponatremia
#Hyperkalemia, resolved
#Acute kidney injury with metabolic acidosis with ongoing multiorgan failure following septic shock and cardiogenic shock
Oligoric
on Sodium bicarbonate drip with NS
Worsening renal function. d/w ICU, continue monitoring neurological status, if no improvement, family to withdraw care.
#. Influenza - with bacterial superimposed pneumonia
- continue Tamiflu, renally adjusted the dose.
# Acute systolic heart Failure - Suspect cardiogenic pulmonary edema and possibly cardiogenic shock s/p PEA arrest.
- pressors to maintain map > 65
- attempt to diurese once stabilized more, given Lasix
- echo was done
- continue aspirin/Plavix
- holding GDMT including Coreg, valsartan due to GLEN/ hypotension.
Follow-up with center mgr recommendation
# CAD - no STEMI. Suspected myocardial injury. Complex cardiac history
- continue asa/Plavix/statin. Cardiology consulted
- holdin Imdur and BB due to hypotension
# History of paroxysmal AFIB
on Amiodarone
- s/p ppm aicd and watchman. Rate is controlled
Cardiology is following
# DM II - initial hyperglycemia
- holding glizide/metformin.
On insulin drip/ICU protocol
# Anoxic encephalopathy. Seizures
Abnormal CT of the head
Possible seizure witnessed
Neurology consulted. No more seizure activity noted, remains unresponsive.
DVT PPX - heparin sq
Code status - full code and prognosis guarded
Total time spent to see the patient, examine the patient, review data and lab results, discuss treatment plan with consultants and nursing staff around 55 minutes
Anticipated Discharge: > 48 hours
Subjective/Interval History
-
Date of Service: November 09, 2024
Still requiring pressure support
Objective Data
-
Labs:
Laboratory Results
11/09/24
04:06
WBC 12.4 H
Hgb 8.6 L
Hct 25.8 L
Plt Count 76 L
Sodium 133 L
Potassium 5.0
Chloride 100
Carbon Dioxide 12 L*
BUN 75 H
Creatinine 3.4 H
Glucose 180 H
Calcium 6.7 L*
Total Bilirubin 1.8 H
AST 281 H
ALT 76 H
Alkaline Phosphatase 123
Vital Signs:
Vital Signs
Temp Pulse Resp BP Pulse Ox
100.1 F 106 23 99/81 98
11/09/24 03:15 11/09/24 04:30 11/09/24 04:30 11/09/24 04:30 11/09/24 04:38
I&O
11/08/24 11/09/24 11/10/24
06:59 06:59 06:59
Intake Total 2151.6 / 2177.4 2465.3 / 2465.3
Output Total 1005 / 1005 510 / 510
Balance 1146.6 / 1172.4 1954.3 / 1954.3
[2024-11-09] MEDS: HEPARIN 5000 UNITS SC ×2 (07:29→16:06)
[2024-11-09] MEDS: NSS (PRESERVATIVE FREE) 10 ML IV (07:29)
[2024-11-09] MEDS: PROTONIX IV 40 MG IV (07:29)
[2024-11-09] MEDS: MIRALAX 17 GRAMS TUBE (07:30)
[2024-11-09] MEDS: PACERONE 200 MG TUBE (07:30)
[2024-11-09] MEDS: RESTASIS 0.05% OPHTHALMIC EMULSION 1 DROPS OPHTH ×2 (07:30→20:35)
[2024-11-09] MEDS: LOW STRENGTH ASPIRIN 81 MG TUBE (07:30)
[2024-11-09] MEDS: TAMIFLU 30 MG TUBE (07:41)
[2024-11-09 07:49] LABS: Glucose - Point of Care 200 mg/dl (70-99)
--- NOTE | 2024-11-09 09:12 | W.PN.NEURO.1 ---
Today's Communication / Plan
-
Continue aspirin and clopidogrel
Consider repeat CT of head to assist with prognosis
Neuro Assessment/Plan
Assessment
I. Multifactorial encephalopathy (toxic, hypoxic, vascular, infectious)
II. Anoxic encephalopathy
III. Influenza A
Poor prognosis for meaningful neurological recovery due to worsening CT of head results with increased evidence of expanding cytotoxic edema caudally as well as absence of significant improvement since onset of anoxic injury.
Most accurate neuro prognostication at 72 hours after onset of anoxic injury
Plan
Continue aspirin and clopidogrel
Consider repeat CT of head to assist with prognosis
Goal of normotension
Goal of normoglycemia
Reviewed with patient's family regarding goals of care. Will follow
Subjective/Objective
Subjective Data
Date of Service: November 09, 2024
Patient unable to provide his own medical history
Objective Data
Vital Signs
Temp Pulse Resp BP Pulse Ox
37.3 C 87 23 93/54 98
11/09/24 07:43 11/09/24 07:43 11/09/24 07:43 11/09/24 07:43 11/09/24 09:09
Lab Results
11/09/24 04:06
11/09/24 04:06
PT 18.4 Sec (11.4-14.6) H 11/07/24 10:45
INR 1.51 11/07/24 10:45
Sodium 133 mmol/L (135-145) L 11/09/24 04:06
Potassium 5.0 mmol/L (3.5-5.1) 11/09/24 04:06
BUN 75 mg/dl (9-20) H 11/09/24 04:06
Glucose 180 mg/dl (70-99) H 11/09/24 04:06
Calcium 6.7 mg/dl (8.4-10.2) L* 11/09/24 04:06
Phosphorus 3.6 mg/dl (2.5-4.5) 11/08/24 03:53
Blw-M-Wjgvrrjbdkj Pept 03975 pg/ml 11/07/24 10:46
Patient Allergies
No Known Allergies Allergy (Verified 11/05/24 15:40)
Review of Systems
-
Unable to obtain full review of systems at this time due to: Patient Intubation and Lethargy
History Source: Patient
All other systems: Reviewed and negative
Physical Exam
-
General: No Apparent Distress, Intubated and Appears Stated Age
Eyes: Round OU and [place] Conjunctivae; Negative Able to visualize OU
HEENT: Anicteric and Moist Mucous Membranes
Neck: Full Range of Motion
Respiratory: No Dyspnea
Cardiac: No JVD
GI: Non-distended
Skin: Unremarkable
Extremities: No Clubbing, No Cyanosis and No Edema
Psych: Unable to Assess
Extended Neurological Exam
Mood & Affect: Unable to Assess
Attention Span & Concentration: Unresponsive to Verbal Stimuli and Unresponsive to Physical Stimuli; Negative Awake, Alert or Interactive
Memory: Unable to Assess
Involuntary Movement: None
Speech: Unable to Assess
Cranial Nerve II: Left Eye: Pupillary Size Unremarkable, Unreactive and Unable to Assess Visual Card
Cranial Nerve II: Right Eye: Pupillary Size Unremarkable, Unreactive and Unable to Assess Visual Card
Cranial Nerves III, IV, : Extraocular Movement: Absent Doll's Eyes and Unable to Assess (Ptosis)
Cranial Nerve V: Facial Sensation: Unable to Assess
Cranial Nerve VII: Facial Symmetry: Other (Incomplete eyelid closure after passive eye opening bilaterally)
Cranial Nerve VIII: Hearing: Unable to Assess
Cranial Nerves IX, X: Palate Movement: Unable to Assess
Cranial Nerve XI: Shoulder Shrug: Unable to Assess
Cranial Nerve XII: Tongue Protusion: Unable to Assess
Muscle Strength, Overall: Other (Spontaneous, arrhythmic, very low amplitude, head bobbing separate from respirator activity); Negative Spontaneously Moves
Muscle Bulk & Tone: Bulk Unremarkable and Tone Unremarkable
Pronator Drift: Unable to Assess
Cold Sensation: Unable to Assess
Vibration Sensation: Unable to Assess
Touch Sensation: Negative Withdrawal to Pain
Coordination: Unable to Assess
Gait & Station: Unable to Assess
Data Reviewed
-
CT Head: Report Reviewed and Image Reviewed
EEG: Report Reviewed
Labs: Report Reviewed
Reviewed with: Physician, Nurse and Family
Old Records: Summarized
Past History
Past History
ED Past Medical History: CAD, HTN, Hypercholesterolemia and NIDDM
ED Past Surgical History: Cardiac (CABG)
Social History
Tobacco: Former smoker
Personal:
Family History
Family History: CAD
Medications
-
Medications:
Generic Name Dose Route Start Last Admin
Trade Name Freq PRN Reason Stop Dose Admin
Acetaminophen 650 mg 11/07/24 09:19 11/08/24 05:42
Acetaminophen 650 Mg Rectal Suppository RECTAL 12/05/24 09:18 650 mg
Q6HPRN PRN Administration
temp > 101.5
Amiodarone HCl 200 mg 11/07/24 09:19 11/09/24 07:30
Amiodarone 200 Mg Tablet TUBE 12/05/24 09:18 200 mg
DAILY JOHNATHAN Administration
Aspirin 81 mg 11/07/24 08:00 11/09/24 07:30
Aspirin 81 Mg Chewable Tablet TUBE 12/05/24 07:59 81 mg
DAILY JOHNATHAN Administration
Carboxymethylcellulose Sodium 1 drops 11/08/24 12:00 11/08/24 21:41
Carboxymethylcellulose Ophth Gel (Celluvisc) Droperette OPHTH 12/06/24 11:59 1 drops
HS JOHNATHAN Administration
Ceftriaxone Sodium 2,000 mg 11/08/24 14:00 11/08/24 14:10
Ceftriaxone 2,000 Mg/20 Ml Vial IV 2,000 mg
Q24H JOHNATHAN Administration
Clopidogrel Bisulfate 75 mg 11/07/24 12:00 11/08/24 11:23
Clopidogrel 75 Mg Tablet TUBE 12/05/24 11:59 75 mg
NOON JOHNATHAN Administration
Cyclosporine 1 drops 11/07/24 09:19 11/09/24 07:30
Cyclosporine 0.05% (Ophthalmic Emulsion) 10 Drop Droperette OPHTH 12/05/24 09:18 1 drops
BID JOHNATHAN Administration
Dextrose 12.5 grams 11/07/24 13:36 11/08/24 01:17
Dextrose 50% (0.5 Grams/Ml) 50 Ml Syringe IV 12/05/24 13:35 12.5 grams
[id number] PRN Administration
BLOOD GLUCOSE < 70
Fentanyl Citrate 50 mcg 11/07/24 08:08
Fentanyl (50 Mcg/Ml) 100 Mcg/2 Ml Ampul IV 11/21/24 08:07
[id number] PRN
see protocol
Protocol
Furosemide 40 mg 11/08/24 08:00 11/08/24 08:43
Furosemide 40 Mg (10 Mg/Ml) 4 Ml Vial IV 12/06/24 07:59 40 mg
DAILY JOHNATHAN Administration
Guaifenesin/Dextromethorphan 5 ml 11/07/24 09:19
Guaifenesin/Dextromethorphan 200 Mg/10 Ml Cup TUBE 12/05/24 09:18
Q6HPRN PRN
cough
Heparin Sodium 5,000 units 11/07/24 09:19 11/09/24 07:29
Heparin 5,000 Units/Ml 1 Ml Vial SC 12/05/24 09:18 5,000 units
Q8 JOHNATHAN Administration
Vancomycin HCl 1 each/ Device 0 mls @ 0 mls/hr 11/07/24 09:19
IV
PER PROTOCOL JOHNATHAN
Protocol
As Directed
Insulin Human Regular 100 units in 100 mls @ 0 mls/hr 11/07/24 13:45 11/08/24 13:27
Novolin R Insulin Infusion IV 100 mls
PER PROTOCOL JOHNATHAN Administration
Protocol
Per Protocol
Norepinephrine Bitartrate 8 mg 258 mls @ 0 mls/hr 11/07/24 21:15 11/09/24 04:36
/ Sodium Chloride IV 258 mls
PER PROTOCOL JOHNATHAN Administration
Protocol
Per Protocol
Vasopressin 20 units in 100 mls @ 0 mls/hr 11/07/24 21:15 11/09/24 03:38
Pitressin IV 100 mls
PER PROTOCOL JOHNATHAN Administration
Protocol
Per Protocol
Sodium Bicarbonate 150 meq/ 1,150 mls @ 75 mls/hr 11/09/24 05:30 11/09/24 06:01
Sterile Water IV 11/09/24 20:49 1,150 mls
.[id number] JOHNATHAN Administration
Insulin Aspart 0 units 11/07/24 16:30 11/09/24 06:51
Insulin Aspart (100 Units/Ml) 3 Ml Flexpen SC 12/05/24 16:29 Not Given
AC JOHNATHAN
Protocol
Lorazepam 2 mg 11/07/24 11:51 11/07/24 11:56
Lorazepam 2 Mg/Ml Vial IV 12/05/24 11:50 2 mg
Q4HPRN PRN Administration
seizure
Oseltamivir Phosphate 30 mg 11/09/24 08:00 11/09/24 07:41
Oseltamivir (Tamiflu) 6 Mg/Ml In Oral Syringe TUBE 11/11/24 08:01 30 mg
DAILY JOHNATHAN Administration
Pantoprazole Sodium 40 mg 11/07/24 09:19 11/09/24 07:29
Pantoprazole Sodium 40 Mg/10 Ml Vial IV 12/05/24 09:18 40 mg
DAILY JOHNATHAN Administration
Polyethylene Glycol 17 grams 11/08/24 08:00 11/09/24 07:30
Polyethylene Glycol Powder 17 Grams Packet TUBE 12/06/24 07:59 17 grams
DAILY JOHNATHAN Administration
Rosuvastatin Calcium 40 mg 11/07/24 18:00 11/08/24 17:04
Rosuvastatin (Crestor) 40 Mg Tablet TUBE 12/05/24 17:59 40 mg
QPM JOHNATHAN Administration
Sodium Chloride 0 flush 11/07/24 11:00
Sodium Chloride 0.9% (Flush) Syringe IV 12/05/24 10:59
PER PROTOCOL JOHNATHAN
Sodium Chloride 10 ml 11/07/24 12:00 11/09/24 07:29
Sodium Chloride 0.9% (Preservative Free) 10 Ml Vial IV 12/05/24 11:59 10 ml
DAILY JOHNATHAN Administration
Sodium Chloride 1 ml 11/07/24 12:09
Nss (Pf) 10 Ml Vial For Ativan 2 Mg Dose IV 12/05/24 12:08
Q4HPRN PRN
IV LORAZEPAM DILUTION
Sterile Water 20 ml 11/08/24 14:00 11/08/24 14:10
Sterile Water For Injection 20 Ml Vial IV 12/06/24 13:59 20 ml
Q24H JOHNATHAN Administration
[2024-11-09 09:45] LABS: Glucose - Point of Care 177 mg/dl (70-99)
--- NOTE | 2024-11-09 09:54 | W.PN.CARDCBS ---
Today's Communication / Plan
-
Continue norepinephrine and vasopressin for now
Family considering withdrawal of care, which would be appropriate
If so, we can turn off tachycardia therapies for ICD
Impression / Plan
-
Impression:
Respiratory PEA arrest in the setting of influenza
Vent dependent respiratory failure with bilateral infiltrates pneumonia, heart failure, possibly ARDS
Anoxic encephalopathy
Influenza diagnosed 11/05/2024 on Tamiflu
Multisystem organ failure
Shock with lactic acidosis
Acute heart failure with reduced ejection
Coronary artery disease status post CABG x 3 (1989, 1989 and 1999) with multiple stents in the past
Most recent intervention 07/02/2022 treatment of in-stent stenosis of ostial circumflex with shockwave ([facility])
Atrial fibrillation
ICD with prior pacemaker
Chronic kidney disease
Sleep apnea
Diabetes mellitus
Hyperlipidemia
GERD
Fatty liver
CT scan of the headwith mild acute hypoxic ischemic encephalopathy and severe atherosclerotic plaque intracranial internal carotid arteries
Echocardiogram 11/07/2024: Normal LV size with left ventricular ejection fraction 40 to 45%. Abnormal septal motion. Inferior and inferoseptal wall hypokinesis. Mild LVH. Normal RV size and function although RV not well-seen. Trivial AI with
aortic valve sclerosis. Mild TR with PA pressure 40 to 45 mmHg. Mild MR
Transthoracic echo 03/10/2023: Left ventricular ejection fraction 30 to 35% with mild LVH. RV mildly dilated with mildly reduced systolic function. Mild to moderate MR. Mild TR.
Left heart catheterization 07/02/2022: Patent SVG grafts to mid and distal LAD and OM. Known occlusion proximal RCA faintly collateralized. In-stent restenosis ostial circumflex treated with shockwave 3 x 12 mm for multiple inflations then
postdilated with 3.5 x 12 mm NC balloon.
Right heart catheterization 08/27/2022: RA 13 PA 59/23 mean 38 PCW 22 cardiac output 3.28 cardiac index 1.74 SVR 1388 PVR 3 Avalos units
Plan:
At this point, he is struggling. He has progressive GLEN and creatinine is behaving as if he is functionally anephric. He presumably has severe anoxic encephalopathy, has heart failure with mildly reduced EF, detectable troponin, shock liver, and
anemia. He is in atrial fibrillation. He is pressor dependent.
His and 5 children are at the bedside. They are leaning towards withdrawal of care, which I think is appropriate.
Will not make any changes in his therapy at this point for now, continue vasopressin and norepinephrine.
If family elects to withdraw care, we can turn off therapies for ICD, though suspect that he will have an asystolic arrest. We can decrease rate of pacemaker.
Nursing will call us with their decision.
Progress Note - [place] Helper
Subjective
Date of Service: November 09, 2024:
Complex 79-year-old man recently diagnosed with influenza A and seen emergency department, developed progressive dyspnea on exertion and during EMS transport to the hospital had a PEA arrest ultimately with ROSC, but now on ventilator with evidence
of anoxic encephalopathy. Daughter is a [place] primary care physician
PMH: CABG, possibly 1989 on 2 separate occasions and again 1999 multiple PCI's, atrial fibrillation status post Watchman, ischemic cardiomyopathy, ICD, diabetes, hyperlipidemia, presumed hypertension, sleep apnea, CPAP, bariatric surgery
Current meds: IV vancomycin, insulin, norepinephrine, vasopressin, clopidogrel 75 mg a day, pantoprazole, rosuvastatin 40 mg a day, amiodarone 200 mg a day, aspirin 81 mg a day, subcu heparin, furosemide 40 mg IV daily, ceftriaxone, Tamiflu
93/54, pulse 87, respiratory 23, afebrile, weight is 82.8 kg, down 0.9 kg, admission weight was 80 kg, unresponsive, on ventilator, family at bedside, head neck exam unremarkable, lungs relatively clear, no obvious murmurs abdomen soft extremities
without substantial edema, pulses diminished but palpable
White count 12.4, hemoglobin 8.6, MCV 80, platelets 76, sodium 133, potassium 5.0, CO2 12, BUN and creatinine 75 and 3.4, creatinine had been 2.8, at admission was 1.6, calcium is 6.7, AST 281, peak troponin was 0.18, has been flat, proBNP on the
second was 10,400, was 3010 on admission
Echo 11/07: EF 40-45%, septal wall motion abnormality and inferoseptal hypokinesis mild LVH, mild MR, trace AI, mild TR, pulmonary artery systolic pressure 40-45 mmHg
Objective
Labs:
11/09/24 04:06
11/09/24 04:06
Labs
Hgb 8.6 g/dL (13.0-18.0) L 11/09/24 04:06
Hct 25.8 % (39.0-52.0) L 11/09/24 04:06
Plt Count 76 10^3/uL (130-400) L 11/09/24 04:06
PT 18.4 Sec (11.4-14.6) H 11/07/24 10:45
INR 1.51 11/07/24 10:45
Sodium 133 mmol/L (135-145) L 11/09/24 04:06
Potassium 5.0 mmol/L (3.5-5.1) 11/09/24 04:06
BUN 75 mg/dl (9-20) H 11/09/24 04:06
Creatinine 3.4 mg/dL (0.7-1.3) H 11/09/24 04:06
Glucose 180 mg/dl (70-99) H 11/09/24 04:06
Troponins
11/07/24 11/07/24 11/07/24
05:45 10:46 16:16
Troponin I 0.051 H* 0.156 H* D 0.161 H*
11/07/24 11/08/24
22:57 05:31
Troponin I 0.180 H* 0.179 H*
Vital Signs and I&O:
Vital Signs
Temp Pulse Resp BP Pulse Ox
37.3 C 87 23 93/54 98
11/09/24 07:43 11/09/24 07:43 11/09/24 07:43 11/09/24 07:43 11/09/24 09:09
Vital Signs
Temp Pulse Resp BP Pulse Ox
37.3 C 87 23 93/54 98
11/09/24 07:43 11/09/24 07:43 11/09/24 07:43 11/09/24 07:43 11/09/24 09:09
Intake & Output
11/07/24 11/08/24 11/09/24 11/10/24
07:59 07:59 07:59 07:59
Intake Total 2177.4 / 2202.1 2804.0 / 3051.5 375.0 / 375.0
Output Total 1005 / 1020 520 / 535
Balance 1172.4 / 1182.1 2284.0 / 2516.5 345.0 / 345.0
Physical Exam
Physical Exam
See above
[2024-11-09 10:44] LABS: Glucose - Point of Care 173 mg/dl (70-99)
--- NOTE | 2024-11-09 11:22 | W.PN.INTV ---
Today's Communication / Plan
Recommendations
Transition to ampicillin
DC ceftriaxone
DC vancomycin
Hold Lasix
Continue vasopressors
Continue mechanical ventilation without change
Obtain ABG
Continue bicarbonate drip
Holding sedation
Prognosis is poor.
Assessment
-
79-year-old male with history of coronary disease with stents, bypass surgery x 2, diabetes, sleep apnea, pulm hypertension, recently diagnosed influenza A 11/05 started on Tamiflu. Presents in respiratory failure, status post cardiac arrest en
route (initial rhythm asystole), epinephrine x 4, CPR for 20 minutes, intubated en route, found to have bilateral infiltrates, hypotension requiring epinephrine, norepinephrine, admitted to ICU
VDRF, intubated in the field 11/07/2024
Cardiac arrest, asystole in the field
CPR x 20 minutes, epinephrine x 4, ROSC
Bilateral infiltrates
pneumonia vs CHF
Acute influenza A, diagnosed 11/05/2024
On Tamiflu
Severe metabolic acidemia
elevated lactate
Questionable seizure activity
Twitching of the frontotemporal muscle
Anemia
Leukocytosis
Hyponatremia
Mildly elevated troponin
Hyperglycemia
Conditions present prior to admission
Coronary disease with CABG x 3, last 1999
Multiple stents, 5, yearly catheterization at [place], last stent 2022?
Ischemic cardiomyopathy, EF 30%
Recent echo 11/03/2024, EF 30%
Severe pulm hypertension, PA pressure 58, reduced RV function and enlarged size
ICD
Chronic atrial fibrillation, status post Watchman
Did not tolerate Eliquis due to tongue bleeding, ecchymoses
On amiodarone
Hypertension/hyperlipidemia
[id number] diabetes
CKD stage IV
History of gastric banding in the past
Chronic back pain, sciatica
Progressive deconditioning over the past 6 months, per family
Plan/recommendations
Remains critically ill-unresponsive. On mechanical ventilation. Now febrile, worsening renal function, worsening acidosis, increased vasopressor requirement.
Multisystem organ dysfunction, downtime at least [address] of the head demonstrating progressive anoxic brain injury findings. 11/08/2024
No meaningful neurological recovery-prospects of recover are very poor after discussion with neurology
-
Shock: Likely multiple mechanisms, possibly septic and cardiogenic, and now neurogenic as well.
Vasopressor requirements worsening today.
High-dose Levophed/vasopressin
Continue with support to aim for mean arterial blood pressure 65 mmHg.
Lactic acid has cleared as of 11/08/2024
-
Worsening acute kidney injury likely ischemic event-on chronic kidney disease. Baseline creatinine around 1.7. Increased to 3.4
Worsening metabolic acidosis
Continue bicarbonate drip
Navas urinary output which is declining.
Follow electrolytes
Continue hemodynamic support
-
Pneumonia suspected: Bilateral infiltrates on x-ray
Streptococcus pneumonia in the sputum
Influenza A positive
Positive blood culture with gram-positive Cocci in pairs-likely Streptococcus pneumonia
-
Sensitivity of the streptococcal pneumonia intermediate of ceftriaxone. Will transition to ampicillin.
DC vancomycin
MRSA screening pending
Tamiflu
-
Suspect fevers may be central in origin
Continue antibiotics as above
Tylenol as needed
-
Continue mechanical ventilation without change.
Continue with volume-cycled ventilation
Respiratory mechanics acceptable.
FiO2 40%
ABG 7.37/35/103-adequate oxygenation and ventilation.
With worsening metabolic acidosis repeat ABG.
-
Remains off sedation since 9 PM to 11/25/2024
Unresponsive
Minimal respiratory effort
Minimal cough effort
No response to pain.
-
Anoxic brain injury-worsening. No meaningful neurological recovery 11/09/2024.
Suspect fevers are central in origin
Worsening shock also may be neurogenic as well.
Repeat CT of the brain 11/08/2024 reviewed: Showed worsening anoxic ischemic injury pattern.
Neurology following the patient-prognosis of recovery is poor.
EEG today
Was Not optimal candidate for TTM protocol given multiple comorbidities, hypotension, questionable seizure activity
Case discussed with neurology 11/09/2023 with. Prognosis very poor.
-
Troponin mildly elevated
Suspect event may be secondary to respiratory event, bilateral pneumonia?
Ischemic cardiomyopathy known, recent echo 11/03 reviewed
EF 30%, PA pressure 58
Patient with severe chronic cardiac disease, gets yearly catheterization per family, primary followed at [place]
Cardiology following
Echocardiogram: 11/07/2024-normal ventricular chamber size. LVEF 40 to 45%. Abnormal septal motion. Inferior and inferior septal wall hypokinetic. Mild LVH. Stage II diastolic dysfunction. Normal right ventricular size. Mild MR. Estimated
pulmonary pressure 45 to millimeters of mercury.
Remains on amiodarone therapy. Patient on aspirin and Plavix as outpatient
Will defer anticoagulation to cardiology
On amiodarone orally
Cardiology following the patient
proBNP is 10,000
Holding Lasix today. Hypotensive/shock.
-
Maintain-Place Navas catheter. Follow I's and O's
Hyperglycemia: Insulin drip started. Maintain levels are 1 40-1 80.
DVT prophylaxis: Mechanical prophylaxis for now, pharmacological prophylaxis subcutaneous heparin every 8hr
GI prophylaxis: Protonix
N.p.o.
Head of the bed elevation
Reviewed with critical care nursing, respiratory care, briefly with cardiology, primary service
Dr. Tello updated- Daughter at the bedside on 11/08/2024, understand poor prognosis of recovery
Dr. Tello updated family 11/09/2024.. Multiple family members present. Prognosis very poor. Very slim to none chances of neurological recovery. Worsening multiorgan failure.
I am recommending to consider comfort measures.
Critical care statement: A total of 45 minutes of critical care time was provided for this patient today. This includes management of unstable vital signs, evaluation of the patient at bedside, reviewing the patient's pertinent medical records
including ventilator settings, arterial blood gases, radiographs, microbiology, laboratory evaluations and discussion with primary team, critical care nursing, and respiratory therapy.
Data
Echo 03/10/2023 enthoneyda Escalante): EF 30%, RV mildly dilated, mildly reduced RV function, moderate MR
08/27/2022: Known occlusion of RCA, patent SVG grafts, no restenosis of the ostial circumflex stent
Subjective Dataa
Subjective Data
Date of Service:
Date of Service: November 09, 2024
Chief Complaint: Soap Grinder Follow Up (Acute respiratory failure requiring mechanical ventilation/cardiorespiratory arrest)
Subjective:
Remains critically ill, unresponsive
On mechanical ventilation
Review of Systems
General: Unobtainable - Pat Unresp
Objective Data
Data Reviewed
Vital Signs / I&O / Oxygen:
Vital Signs
Temp Pulse Resp BP Pulse Ox
99.1 F 87 23 93/54 98
11/09/24 07:43 11/09/24 07:43 11/09/24 07:43 11/09/24 07:43 11/09/24 09:09
Intake and Output
11/08/24 11/09/24 11/10/24
06:59 06:59 06:59
Intake Total 2151.6 / 2177.4 2465.3 / 2829.8 866.0 / 866.0
Output Total 1005 / 1005 510 / 520 90 / 90
Balance 1146.6 / 1172.4 1955.3 / 2309.8 776.0 / 776.0
SaO2 [A/C] 98
SaO2 98
Physical Exam
General: Comfortable
HEENT: Normocephalic
Cardiovascular: S1-S2
Respiratory: Non-Labored Respirations and ET Tube (No significant secretion)
GI: Soft and Non Distended
Neurology: Other (Comatose, pupils sluggish and small, minimal cough effort to suction, no response to pain. Minimal respiratory effort.)
Skin: Warm
Labs/Micro/Reports
Lab Data
11/09/24 04:06
11/09/24 04:06
Microbiology
11/07/24 10:45 Endotracheal Respiratory Culture - Final
Streptococcus pneumoniae
11/07/24 10:45 Endotracheal Gram Stain - Final
11/07/24 06:11 Blood/Venous Blood Culture - Preliminary
Streptococcus pneumoniae
11/07/24 06:11 Blood/Venous Gram Stain - Final
11/07/24 06:08 Blood/Venous Blood Culture - Preliminary
Streptococcus pneumoniae
11/07/24 06:08 Blood/Venous Gram Stain - Final
11/07/24 13:45 Nose MRSA Screen - Final
No Methicillin Resistant Staphylococcus aureus isolated.
--- NOTE | 2024-11-09 11:47 | PTCARENOTE ---
Updated assessment, vital signs ongoing and as documented. Family at bedside with multiple MD thru morning. Neurology, padding gluer and cardiology with hospitalist continue to round for patient and family. Continue unit based protocols. Skin cares,
oral cares and turning protocols. Continue follow up in morning rounds. Continue follow up drip trends, titration as per protocol. Continue presently working toward MAP of 65 as per orders. Levophed and vasopressin as per orders. Hourly rounds and
frequent patient safety checks ongoing. Updated restart of glycemic protocol with help of pharmacy team. Accu data trends as per protocol. Update with GOL members. Family in lengthy discussion about goals of care. Continue ongoing critical care
support.
[2024-11-09 11:49] LABS: Glucose - Point of Care 162 mg/dl (70-99)
[2024-11-09] MEDS: AMPICILLIN 108 MG IV ×2 (11:58→20:35)
[2024-11-09] MEDS: PLAVIX 75 MG TUBE (11:58)
[2024-11-09 12:45] LABS: Glucose - Point of Care 174 mg/dl (70-99)
--- NOTE | 2024-11-09 13:00 | CM ---
CM following re: discharge planning.
Reviewed pt's chart, family members at bedside.
Per rounds meeting, pt remains critically ill-unresponsive, on mechanical ventilation, worsening multiorgan failure, prognosis very poor, comfort care recommended, family deciding.
D/c plan: uncertain at this time.
CM will follow with discharge plan updates as hospitalization processes
--- NOTE | 2024-11-09 13:42 | PTCARENOTE ---
Complete bed bath and skin cares. Continue oral care as per protocol. Continue supportive cares for patient and family. Teaching ongoing. Family still discussing goals of care. Family in and out at bedside. ABG as ordered. Follow up with medical device sales representative
team.
[2024-11-09 13:46] LABS: B.E. -12.2 mmol/L; O2 Saturation % 97.9 % (94-98); PCO2 25 mmHg (35-48); PO2 106 mmHg (83-108); pH 7.34 (7.35-7.45)
[2024-11-09 13:47] LABS: HCO3 13.5 mmol/L (21-28)
[2024-11-09 14:52] LABS: Glucose - Point of Care 150 mg/dl (70-99)
--- NOTE | 2024-11-09 15:21 | W.PN.UPDATE ---
Update Note
Progress Note Update
Family updated throughout the day. No meaningful neurological recovery. Progressive multiorgan failure.
This afternoon discussed with daughter and son and family has decided to proceed with comfort care tomorrow as many other family members have to come in.
Will update to DNR
Continue with current level of care without escalation.
--- NOTE | 2024-11-09 15:43 | PTCARENOTE ---
Continue follow up assessment trends. Cultural Historian meeting several times with family thru shift. Family wishing to make patient dnr at this point. Following up goals of care thru shift. Glycemic protocol continues presently at q 2hour accu data
trends. Levophed remains at 20mcg/min, vasopressin as ordered maintaining maps of 65 or greater. Skin cares and oral cares ongoing. Continue hourly rounds or more frequent patient safety checks.
[2024-11-09 16:26] LABS: Glucose - Point of Care 143 mg/dl (70-99)
[2024-11-09] MEDS: CRESTOR 40 MG TUBE (18:12)
[2024-11-09 18:27] LABS: Glucose - Point of Care 141 mg/dl (70-99)
[2024-11-09 19:48] LABS: Glucose - Point of Care 121 mg/dl (70-99)
[2024-11-09] MEDS: REFRESH CELLUVISC GEL 1 DROPS OPHTH (20:36)
[2024-11-09 20:52] LABS: Glucose - Point of Care 113 mg/dl (70-99)
[2024-11-09 21:40] LABS: Glucose - Point of Care 97 mg/dl (70-99)
[2024-11-09 22:42] LABS: Glucose - Point of Care 92 mg/dl (70-99)
--- NOTE | 2024-11-09 23:00 | PTCARENOTE ---
Spoke with daughter and family as a whole. Questions answered. Multiple family members in and out of room to see patient one last time before AM. Care provided. GCS 3, no reflexes, pupils 3 nonreactive. Assessment as documented, unchanged from 1999.
Pt remains on 2 pressors to maintain desired BP. Will monitor.
[2024-11-09 23:43] LABS: Glucose - Point of Care 100 mg/dl (70-99)
[2024-11-10] VITALS (26 sets, daily range): BP systolic 78–106; BP diastolic 56–73
[2024-11-10] MEDS: HEPARIN 5000 UNITS SC ×2 (00:03→07:24)
[2024-11-10] MEDS: OFIRMEV 100 IV (00:16)
[2024-11-10 01:50] LABS: Glucose - Point of Care 117 mg/dl (70-99)
[2024-11-10] MEDS: LEVOPHED 258 MG IV ×2 (02:44→07:13)
[2024-11-10] MEDS: PITRESSIN 100 IV ×2 (02:44→09:29)
[2024-11-10] MEDS: AMPICILLIN 108 MG IV (03:00)
[2024-11-10 03:51] LABS: Glucose - Point of Care 120 mg/dl (70-99)
[2024-11-10 05:37] LABS: Blood Urea Nitrogen 87 mg/dl (9-20); Calcium 6.9 mg/dl (8.4-10.2); Carbon Dioxide 20 mmol/L (22-30); Chloride 96 mmol/L (98-107); Estimated Creatinine Clearance 15 ml/min; Glucose 124 mg/dl (70-99); Potassium 4.7 mmol/L (3.5-5.1); Sodium 131 mmol/L (135-145); Triglycerides 245 mg/dl (10-149); eGFR 15.14
--- NOTE | 2024-11-10 05:44 | PTCARENOTE ---
Temps 101.9-102.7, GIRMA Palma made aware. Ofirmev given. Pt down to 101.8 at this time. Ice packs applied to underarms. Otherwise assessment unchanged. Will monitor.
[2024-11-10 05:45] LABS: Glucose - Point of Care 114 mg/dl (70-99)
--- NOTE | 2024-11-10 06:37 | W.PN.HOSP.TC ---
Today's Communication/Plan
-
.
Assessment / Plan
Assessment / Plan
Physical Exam
General: Intubated, not responsive
HEENT: Normocephalic, no corneal reflex, ET tube
Respiratory: Crackles
Cardiac: S1/S2, tachycardia
GI: Soft, Non Distended and Normal Bowel Sounds
Rectal: no bleeding
Genito-urinary: no hematuria
Musculoskeletal: No Clubbing, No Cyanosis and No Edema
Skin: Warm
Neuro: Other (unresponsive)
Psych, no agitation
Echo:
Normal left ventricular chamber size. Mildly reduced left ventricular systolic
function. Left ventricular ejection fraction is 40-45%. Abnormal septal
motion. The inferior and inferoseptal fritz are hypokinetic. Mild concentric
left ventricular hypertrophy. Stage II diastolic dysfunction suggestive of
abnormal relaxation and increased filling pressures.
Normal right ventricular size. Normal right ventricular systolic function.
Structurally normal mitral valve. Mitral valve opens normally. Mild mitral
regurgitation.
Trileaflet aortic valve. Aortic valve opens normally. Trivial aortic
regurgitation. Aortic valve sclerosis.
Mild tricuspid regurgitation. Estimated pulmonary artery pressure of 40-45
mmHg. Assuming a right atrial pressure of 8 mmHg.
Compared to last available study from [place] 03/2023 ejection fraction
previously was described at 30 to 35% now 40 to 45%. Previously right
ventricle was described as mildly dilated currently normal in size although not
well-seen.
A/P:
#. Cardiac Arrest - PEA, suspect hypoxic mediated which may be due to influenza/pneumonia versus CHF exacerbation. Inital ECG is unchanged from prior and paced. Trop 0.05. No complaints of CP.
c/w care in icu
-Initial rhythm asystole and received epinephrine x 4 and CPR for about 20 minutes
- CT Head with mild anoxic injury. Neurology consulted
CT head 2/3 findings compatible with global hypoxic/ischemic encephalopathy, with progression of findings since CT of November 07, 2024.
- Keep MAP > 65 for now with pressors
- off sedation for > 48 hours.
- troponin 0.017 then peak at 0.18 then down to 0.179
- echo resulted
- follow neurology and ICU doctors recommendations. Poor prognosis, family decided to withdraw care/ DNR
# Septic PNEUMONIA/bacteremia/sepsis. Patient tested positive for bacterial and viral infection at the same time
#Sepsis POA/ bacteremia
Septic shock with cardiogenic shock
Continue pressure support, IV fluid.
Repeat blood culture 11/08 is no growth
on IV antibiotics.
#. Post cardiac acute hypoxic Respiratory failure - Patient likely in some CHF exacerbation with pulmonary edema. No significant peripheral edema so likely flashed, vs influenza ards with pneumonia.
- intubated, PEEP currently at 5 with sat of 100
- repeat blood gas 7.34/25/106/13.5 on 11/09 on vent support.
- Off sedation
- no h/o COPD or asthma.
- GI ppx
- Positive flu influenza A
- theater education teacher consulted and appreciated input
-On IV Rocephin now, high dose.
#Hyponatremia
#Hyperkalemia, resolved
#Acute kidney injury with metabolic acidosis with ongoing multiorgan failure following septic shock and cardiogenic shock
Oligoric
on Sodium bicarbonate drip with IVF
Worsening renal function. d/w ICU, Since no clinical improvement and continued need for pressure support, family decided to withdraw care.
#. Influenza - with bacterial superimposed pneumonia
-on Tamiflu, renally adjusted the dose.
# Acute systolic heart Failure - Suspect cardiogenic pulmonary edema and possibly cardiogenic shock s/p PEA arrest.
- pressors to maintain map > 65
- attempt to diurese once stabilized more, given Lasix
- echo was done
- continue aspirin/Plavix
- holding GDMT including Coreg, valsartan due to GLEN/ hypotension.
Follow-up with supervisor throwing department recommendation
# CAD - no STEMI. Suspected myocardial injury. Complex cardiac history
- continue asa/Plavix/statin. Cardiology consulted
- holding Imdur and BB due to hypotension
# History of paroxysmal AFIB
on Amiodarone
- s/p ppm aicd and watchman. Rate is controlled
Cardiology is following
# DM II - initial hyperglycemia
- holding glizide/metformin.
On insulin drip/ICU protocol
# Anoxic encephalopathy. Seizures
Abnormal CT of the head
Possible seizure witnessed
Neurology consulted. No more seizure activity noted, remains unresponsive.
DVT PPX - heparin sq
Code status - DNR per family.
Met with family on 11/09, help and support offered. They verbalized understanding to the situation and clinical course and they are understandably saddened.. Daughter in a family physician with [facility] system, discussed with her if she would have
questions, our service to be available anytime.
Total time spent to see the patient, examine the patient, review data and lab results, discuss treatment plan with consultants and nursing staff around 55 minutes
Anticipated Discharge: 24 - 48 hours
Subjective/Interval History
-
Date of Service: November 10, 2024
Family at bed side
Not responsive
Objective Data
-
Labs:
Laboratory Results
11/10/24 11/10/24
02:31 03:52
Sodium Cancelled 131 L
Potassium Cancelled 4.7
Chloride Cancelled 96 L
Carbon Dioxide Cancelled 20 L
BUN Cancelled 87 H
Creatinine Cancelled 3.9 H
Glucose Cancelled 124 H
Calcium Cancelled 6.9 L*
Vital Signs:
Vital Signs
Temp Pulse Resp BP Pulse Ox
102.7 F H 110 20 96/62 100
11/10/24 03:05 11/10/24 05:30 11/10/24 05:30 11/10/24 05:30 11/10/24 05:30
I&O
11/08/24 11/09/24 11/10/24
06:59 06:59 06:59
Intake Total 2151.6 / 2177.4 2465.3 / 2829.8 3591.1 / 3591.1
Output Total 1005 / 1005 510 / 520 365 / 365
Balance 1146.6 / 1172.4 1955.3 / 2309.8 3226.1 / 3226.1
[2024-11-10] MEDS: CALCIUM GLUCONATE 100 IV (07:13)
[2024-11-10] MEDS: TYLENOL/FEVERALL 650 MG RECTAL (07:21)
[2024-11-10] MEDS: MIRALAX 17 GRAMS TUBE (07:22)
[2024-11-10] MEDS: NSS (PRESERVATIVE FREE) 10 ML IV (07:22)
[2024-11-10] MEDS: PROTONIX IV 40 MG IV (07:22)
[2024-11-10] MEDS: PACERONE 200 MG TUBE (07:23)
[2024-11-10] MEDS: LOW STRENGTH ASPIRIN 81 MG TUBE (07:23)
[2024-11-10] MEDS: RESTASIS 0.05% OPHTHALMIC EMULSION 1 DROPS OPHTH (07:23)
[2024-11-10] MEDS: TAMIFLU 30 MG TUBE (07:25)
[2024-11-10 07:44] LABS: Glucose - Point of Care 135 mg/dl (70-99)
[2024-11-10] MEDS: SODIUM BICARBONATE 1150 MEQ IV (09:28)
--- NOTE | 2024-11-10 09:55 | W.CAR.ICD ---
ICD Inactivation Request
-
Conservation Of Resources Commissioner Notified: [employer]
The above vendor has been contacted to inactivate the patient's Implantable Cardioverter Defibrillator.
[2024-11-10 10:17] LABS: Glucose - Point of Care 116 mg/dl (70-99)
--- NOTE | 2024-11-10 11:18 | W.PN.INTV ---
Today's Communication / Plan
Recommendations
For now continue mechanical ventilation
Will transition to comfort measures when able to deactivate ICD
Morphine orders have been entered
Eventual discontinue pressors and then extubate if patient tolerates.
No additional recommendation from the critical care perspective
Assessment
-
79-year-old male with history of coronary disease with stents, bypass surgery x 2, diabetes, sleep apnea, pulm hypertension, recently diagnosed influenza A 11/05 started on Tamiflu. Presents in respiratory failure, status post cardiac arrest en
route (initial rhythm asystole), epinephrine x 4, CPR for 20 minutes, intubated en route, found to have bilateral infiltrates, hypotension requiring epinephrine, norepinephrine, admitted to ICU
VDRF, intubated in the field 11/07/2024
Cardiac arrest, asystole in the field
CPR x 20 minutes, epinephrine x 4, ROSC
Bilateral infiltrates
pneumonia vs CHF
Acute influenza A, diagnosed 11/05/2024
On Tamiflu
Severe metabolic acidemia
elevated lactate
Questionable seizure activity
Twitching of the frontotemporal muscle
Anemia
Leukocytosis
Hyponatremia
Mildly elevated troponin
Hyperglycemia
Conditions present prior to admission
Coronary disease with CABG x 3, last 1999
Multiple stents, 5, yearly catheterization at [facility], last stent 2022?
Ischemic cardiomyopathy, EF 30%
Recent echo 11/03/2024, EF 30%
Severe pulm hypertension, PA pressure 58, reduced RV function and enlarged size
ICD
Chronic atrial fibrillation, status post Watchman
Did not tolerate Eliquis due to tongue bleeding, ecchymoses
On amiodarone
Hypertension/hyperlipidemia
Tyl-ygcaxqm-yzdhgjzmd diabetes
CKD stage IV
History of gastric banding in the past
Chronic back pain, sciatica
Progressive deconditioning over the past 6 months, per family
Plan/recommendations
Unfortunately, remains critically ill.
No meaningful neurological recovery
Minimal respiratory effort, no gag reflex, no response to painful stimuli.
Remains in shock: Septic possibly neurogenic as well and cardiogenic.
On vasopressors. Unable to taper down.
Worsening renal failure with metabolic acidosis.
Worsening anemia
-
Multiple discussions with the specialist including neurology
Based on progressive brain edema findings on CT head and no meaningful recovery. Likely ischemic injury will continue to progress with no chances of meaningful recovery.
Septic shock with Streptococcus pneumonia and bacteremia. On proper antibiotics
Influenza A on Tamiflu.
-
Dr. Tello has been in discussions with family members multiple times including today 11/10/2024.
After extensive discussion with family we have decided to proceed with comfort measures only.
Discussed with cardiology: Will deactivate AICD
Will discontinue unnecessary medications.
Will stop vasopressors and then discontinue if patient tolerates.
-
Primary team has been notified
-
No additional critical care recommendations.
Continue to focus on comfort.
-
Critical care statement: A total of 35 minutes of critical care time was provided for this patient today. This includes management of unstable vital signs, evaluation of the patient at bedside, reviewing the patient's pertinent medical records
including ventilator settings, arterial blood gases, radiographs, microbiology, laboratory evaluations and discussion with primary team, critical care nursing, and respiratory therapy.
Data
Echo 03/10/2023 [facility]): EF 30%, RV mildly dilated, mildly reduced RV function, moderate MR
08/27/2022: Known occlusion of RCA, patent SVG grafts, no restenosis of the ostial circumflex stent
Subjective Dataa
Subjective Data
Date of Service:
Date of Service: November 10, 2024
Chief Complaint: Director Of District Office Follow Up (Acute respiratory failure requiring mechanical ventilation/cardiorespiratory arrest)
Subjective:
Unresponsive
No meaningful neurological recovery
Remains on vasopressors
Intubated and critically ill
Review of Systems
General: Unobtainable - Pat Unresp
Objective Data
Data Reviewed
Vital Signs / I&O / Oxygen:
Vital Signs
Temp Pulse Resp BP Pulse Ox
101.4 F H 102 20 100/62 96
11/10/24 08:58 11/10/24 08:58 11/10/24 08:58 11/10/24 08:58 11/10/24 08:58
Intake and Output
11/09/24 11/10/24 11/11/24
06:59 06:59 06:59
Intake Total 2465.3 / 2829.8 3591.1 / 3746.7 311.9 / 311.9
Output Total 510 / 520 365 / 375
Balance 1955.3 / 2309.8 3226.1 / 3371.7 291.9 / 291.9
SaO2 [A/C] 97
SaO2 96
Physical Exam
General: Comfortable
HEENT: Normocephalic
Cardiovascular: S1-S2
Respiratory: Non-Labored Respirations and ET Tube (No significant secretion)
GI: Soft and Non Distended
Neurology: Other (Comatose, pupils sluggish and small, minimal cough effort to suction, no response to pain. Minimal respiratory effort.)
Skin: Warm
Labs/Micro/Reports
Lab Data
11/09/24 04:06
11/10/24 03:52
Laboratory Results
11/09/24 11/09/24
11:32 13:10
pH Cancelled 7.34 L
pCO2 Cancelled 25 L
pO2 Cancelled 106
HCO3 Cancelled 13.5 L*
O2 Delivery Level Cancelled
Microbiology
11/07/24 06:11 Blood/Venous Blood Culture - Preliminary
Streptococcus pneumoniae
11/07/24 06:11 Blood/Venous Gram Stain - Final
11/08/24 16:31 Blood/Venous Blood Culture - Preliminary
No Growth in 24 hours- Final report to follow
11/07/24 10:45 Endotracheal Respiratory Culture - Final
Streptococcus pneumoniae
11/07/24 10:45 Endotracheal Gram Stain - Final
11/07/24 06:08 Blood/Venous Blood Culture - Preliminary
Streptococcus pneumoniae
11/07/24 06:08 Blood/Venous Gram Stain - Final
11/07/24 13:45 Nose MRSA Screen - Final
No Methicillin Resistant Staphylococcus aureus isolated.
--- NOTE | 2024-11-10 12:31 | CM ---
Addendum entered by Troy Leija 11/10/24 13:36:
Pt . Emotional support provided to pt's family.
Both pt's daughter and pt's son requested to call [employer] and they expressed their huge hope that they will accept the body for [employer].
CM spoke to [employer] technical services representative Deisy and due to pt's positive for Flu and has staph infection, pt declined for [employer] gift.
Both pt's daughter and pt's son were notified, and they stated that family will probably use [facility].
Original Note:
CM following re: discharge planning.
Discussed in Rounds, reviewed pt's chart, family members at bedside.
Per rounds meeting, pt remains critically ill-unresponsive, on mechanical ventilation, worsening multiorgan failure, will be transitioned to comfort measures today.
Pt's daughter stated that pt is registered for [employer] gift. Emotional support offered and provided.
D/C plan: comfort care.
CM is available for emotional support and will coordinate with [employer] registry: [phone] x [phone].
--- NOTE | 2024-11-10 13:25 | PTCARENOTE ---
Working with family thru am proceeding toward with draw of cares. Continue ongoing supportive cares and emotional support. Family in whole at bedside. Dimensional Integration Engineer team in and out to support family thru process. Drips were dc'd and patient
1246. Hospitalist team at bedside for pronouncement. Continue ongoing supportive cares for family. Case management at bedside working with family to proceed with needs. Critcal care nursing in and out at bedside.
--- NOTE | 2024-11-10 14:46 | W.PN.DEATH ---
Pronouncement of
-
Called to see patient to pronounce.
No spontaneous heart tones or respirations noted.
Patient not responsive to verbal stimuli.
Patient is pronounced .
Time of : 12:46
Date of : 11/10/24
Family Notified: Yes
--- NOTE | 2024-11-11 07:02 | W.DCSUMMARY ---
Discharge Summary
Discharge Data
Date of Admission: 11/07/24
Date of Discharge: 11/10/24
-
Pending Results: No
Hospital Course
79 years old male was brought into the hospital after having worsening shortness of breath. Patient was recently diagnosed with influenza A infection and he was taking Tamiflu at home. Patient encountered cardiopulmonary arrest while arrived to
the hospital. He had PEA arrest, asystole was noted. He received a few rounds of epinephrine. Downtime was estimated to be around 20 minutes. Patient was intubated and admitted to the intensive care unit. He was diagnosed with cardiogenic shock
in addition to septic shock. Patient received intravenous antibiotics, pressure support medications and intravenous fluid. He was unresponsive and did not need sedation while on ventilatory support. Patient was noted to suffer from multiple organ
failure. Blood culture came back positive for Streptococcus pneumonia bacteremia. His condition did not improve. He remained neurologically impaired. He was he followed by music librarian, continuous process rotary drum tanner. Patient had history of ischemic
cardiomyopathy, atrial fibrillation and diabetes. Patient was evaluated by neurologist. Patient had scan of the head. He was diagnosed with multifactorial encephalopathy(toxic, hypoxic, vascular, infectious) with anoxic encephalopathy. The goal
was to maintain normotensive and normoglycemic status. Prognosis overall was poor. Kidney function started to deteriorate. Family was updated regularly. Patient did not signs of recovery from anoxic brain injury. Family decided to seek comfort
care/withdrawal of care. CODE STATUS was changed to DO NOT RESUSCITATE. Patient was placed on comfort measure with deactivation of ICD. Patient peacefully surrounded by his loved ones and family on 11/10/24.
Discharge Plan
-
Patient Disposition:
Date/Time
Date/Time: 11/10/24 12:46
Discharge Date and Time
Discharge Date/Time: 11/10/24 12:46
Print Language: GERMAN
--- NOTE | 2024-11-11 10:39 | EEG.RPT ---
Electroencephalogram Report
Recording
Date of EE11/08/24
Type of EEG: Routine
Length of EEG recordin minutes
Done with Video Recording: Yes
Patient Status: Inpatient
Recording Conditions: Other
Hyperventilation Performed: No
Photic Stimulation Performed: Yes
Report
GREATER THAN 1 HOUR REPORT
EEG INTERPRETATION:
Moderately abnormal EEG for age due to diffuse loss of normal organization
CLINICAL CORRELATION:
This study was suggestive of diffuse cortical dysfunction without focal abnormality. No seizures were recorded.
Clinical correlation is advised.
METHODS:
A 21 channel digitized electroencephalogram (EEG) was performed in the ICU. The 10/20 international system of electrode placement was used with ECG and lateral/vertical eye movements recorded. Video was recorded. The [employer] quantitative EEG system
was utilized.
QUALITY OF STUDY:
Fair�good, limited by muscle artifact
ELECTROENCEPHALOGRAPHER IMPRESSION(S):
Background
Low amplitude unorganized anterior-posterior voltage gradient of beta activity
There were no significant asymmetries of background activity noted.
Sleep
Not recorded
Photic Stimulation
Failed to activate the record
ECG
Unremarkable
== END 2024-11-10 12:46 | disposition expired | DRG 208 ==
LOC: ICU 08:12
PROVIDERS: Internal Medicine Critical Care Medicine; Nurse Practitioner Family; Nurse Practitioner Primary Care; Radiology Diagnostic Radiology; ADMITTING PHYSICIAN Internal Medicine; ATTENDING PHYSICIAN Internal Medicine; CONSULT PHYSICIAN Internal Medicine Cardiovascular Disease; CONSULT PHYSICIAN Internal Medicine Critical Care Medicine; CONSULT PHYSICIAN Psychiatry & Neurology Neurology; EMERGENCY PHYSICIAN Emergency Medicine
PROC: 5A1945Z Respiratory Ventilation, 24-96 Consecutive Hours (ICD-10-PCS; 2024-11-07)
PROC: 0BH17EZ Insertion of Endotracheal Airway into Trachea, Via Natural or Artificial Opening (ICD-10-PCS; 2024-11-07)
PROC: 5A12012 Performance of Cardiac Output, Single, Manual (ICD-10-PCS; 2024-11-07)
PROC: 05HM33Z Insertion of Infusion Device into Right Internal Jugular Vein, Percutaneous Approach (ICD-10-PCS; 2024-11-07)
DX: J96.01 Acute respiratory failure with hypoxia (principal); A40.3 Sepsis due to Streptococcus pneumoniae; G92.8 Other toxic encephalopathy; I50.23 Acute on chronic systolic (congestive) heart failure; R65.21 Severe sepsis with septic shock; J10.08 Influenza due to other identified influenza virus with other specified pneumonia; Z66 Do not resuscitate; Z51.5 Encounter for palliative care; J15.9 Unspecified bacterial pneumonia; G93.1 Anoxic brain damage, not elsewhere classified; I13.0 Hypertensive heart and chronic kidney disease with heart failure and stage 1 through stage 4 chronic kidney disease, or unspecified chronic kidney disease; N18.4 Chronic kidney disease, stage 4 (severe); I48.19 Other persistent atrial fibrillation; Z99.11 Dependence on respirator [ventilator] status; E87.1 Hypo-osmolality and hyponatremia; N17.9 Acute kidney failure, unspecified; E87.20 Acidosis, unspecified; I46.8 Cardiac arrest due to other underlying condition; E11.22 Type 2 diabetes mellitus with diabetic chronic kidney disease; E78.00 Pure hypercholesterolemia, unspecified; R57.0 Cardiogenic shock; I25.5 Ischemic cardiomyopathy; K21.9 Gastro-esophageal reflux disease without esophagitis; D50.9 Iron deficiency anemia, unspecified; E55.9 Vitamin D deficiency, unspecified; G47.33 Obstructive sleep apnea (adult) (pediatric); I25.10 Atherosclerotic heart disease of native coronary artery without angina pectoris; I35.8 Other nonrheumatic aortic valve disorders; I49.01 Ventricular fibrillation; Z95.810 Presence of automatic (implantable) cardiac defibrillator; Z95.5 Presence of coronary angioplasty implant and graft; Z95.1 Presence of aortocoronary bypass graft; Z87.891 Personal history of nicotine dependence; Z82.49 Family history of ischemic heart disease and other diseases of the circulatory system; Z82.3 Family history of stroke; Z79.899 Other long term (current) drug therapy; Z79.84 Long term (current) use of oral hypoglycemic drugs; Z79.82 Long term (current) use of aspirin; Z79.02 Long term (current) use of antithrombotics/antiplatelets
CPT/HCPCS: 36556; 36600; 70450; 71045; 74018; 76937; 80048; 80053; 80202; 81003; 81015; 82805; 82947; 82962; 83036; 83605; 83735; 83880; 84100; 84443; 84478; 84484; 85025; 85027; 85610; 87040; 87070; 87071; 87077; 87186; 87205; 93005; 93306; 94002; 94003; 95813; 99291; 99292; C1751